=== PATIENT | female | born 1945 | race Caucasian/White ===

== ENCOUNTER → 2016-05-02 | Outpatient (CLI) | payer OTHER ==
[~2016-05-02] MED LIST: CALCTAB5 PO; CHOL100010 PO
--- NOTE | 2016-05-02 10:27 | DIAGNOSTIC IMAGING REPORT ---
CHEST 2 VIEWS ROUTINE CLINICAL HISTORY: Cough COMPARISON STUDY: 04/05/2016 FINDINGS: The cardiac and mediastinal contours remain stable. There is no focal pulmonary consolidation. There is no failure. There are no pleural effusions.[ IMPRESSION: No active disease in the chest. Electronically signed by: Umesh Armendariz M.D. 05/02/2016 10:25 AM Dictated Date/Time: 05/02/2016 10:24 AM
== END | disposition home or self-care (01) ==
LOC: C.RAD1850 10:15
PROVIDERS: ATTEND Family Medicine
DX: R05 Cough (principal)

== ENCOUNTER → 2016-05-22 | Outpatient (CLI) | payer OTHER ==
--- NOTE | 2016-05-22 13:23 | MAMMOGRAPHY REPORT ---
BILATERAL DIGITAL SCREENING MAMMOGRAM WITH CAD: 05/22/2016 CLINICAL HISTORY: Routine screening. Patient has no complaints. TECHNIQUE: Current study was also evaluated with a Computer Aided Detection (CAD) system. Bilatera l CC and MLO views were obtained. COMPARISON: Comparison is made to exams dated: 05/19/2015 mammogram, 05/17/2014 mammogram, 05/14/2013 ma mmogram, 05/07/2012 mammogram, 05/03/2011 mammogram, and 04/26/2009 mammogram - [facility] enter. BREAST COMPOSITION: The tissue of both breasts is heterogeneously dense, which may obscure small ma sses. FINDINGS: No suspicious masses, calcifications, or areas of architectural distortion are noted in e ither breast. There has been no significant interval change compared to prior exams. IMPRESSION: ACR BI-RADS CATEGORY 1: NEGATIVE There is no mammographic evidence of malignancy. A 1 year screening mammogram is recommended. The p atient will receive written notification of the results. Approximately 10% of breast cancers are not detected with mammography. A negative mammographic repor t should not delay biopsy if a clinically suggestive mass is present. Briseyda Infante M.D. /:05/22/2016 07:54:57 Physician/Ophthalmologist: Sho Farley, [facility] letter sent: Normal 1/2 BI-RADS Code: ACR BI-RADS Category 1: Negative
== END | disposition home or self-care (01) ==
LOC: C.MAMM 07:31
PROVIDERS: ATTEND Obstetrics & Gynecology
DX: Z12.31 Encounter for screening mammogram for malignant neoplasm of breast (principal)

== ENCOUNTER → 2017-02-19 | Day surgery (SDC) | payer OTHER ==
[2017-02-07 11:22] VITALS: Ht 162.6 cm; Wt 61.4 kg
[~2017-02-19] VITALS: Ht 162.6 cm; Wt 61.4 kg
[~2017-02-19] MED LIST changes: +CALC-393 PO; -CALCTAB5 PO; +LIDOCAINE HCL 2% 2 ML VIAL (20MG/ML) ONE; +PROPOFOL IV EMULSION 10 MG/ML 20 ML VIAL IV ONE; +SODIUM CHLORIDE 0.9% 500ML 500 ML IV ONE
--- NOTE | 2017-02-19 11:14 | Endo History and Physical ---
History & Physical Date of Service: Feb 19, 2017. Chief Complaint: HX OF ANAL RECTAL MALIGNANCY Referring Physician: DR. POZO History of Present Illness 72 yo CF who presents for colonoscopy secondary to history of Ano-rectal cancer. Past Medical History Osteoporosis, Fractures, Cancer Past Surgical History Hx Cardiac Surgery: No Hx Internal Defibrillator: No Hx Pacemaker: No Hx Abdominal Surgery: No Hx Post-Op Nausea and Vomiting: Yes Hx Cancer Surgery: Yes (SEE ABOVE (PAST MEDICAL HX COMMENTS BOX)) Hx Thoracic Surgery: No Hx Orthopedic: Yes (LEFT FOOT SURGERY) Hx Urinary Tract Surgery: No Family History None Social History Smoking Status: Never Smoker Hx Substance Use: No Hx Alcohol Use: Yes (OCCASIONALLY) Allergies Coded Allergies: Amoxicillin (Verified Adverse Reaction, Mild, Loose stools, 02/19/17) Clavulanic Acid (Verified Adverse Reaction, Mild, Loose stools, 02/19/17) Current Medications Reported Home Medications Medications Dose Route/Sig Max Daily Dose Days Date Category Calcium (Calcium Carbonate) 600 Mg Tab 1 Tab PO BID 02/07/17 Reported Vitamin D (Cholecalciferol) 1,000 Unit Tab 1 Tab PO QAM 02/07/17 Reported Vital Signs Weight (Kilograms): 61.36 Height (Feet): 5 Height (Inches): 4 Date Time Temp Pulse Resp B/P (MAP) Pulse Ox O2 Delivery O2 Flow Rate FiO2 02/19/17 10:41 36.8 125 18 154/79 (104) 100 Room Air Physical Exam General Appearance: WD/WN, no apparent distress Respiratory/Chest: Auscultation: breath sounds normal Cardiovascular: Heart Auscultation: RRR Abdomen: Bowel Sounds: normal Inspection & Palpation: soft, non-distended, no tenderness, guarding & rebound Assessment and Plan Assessment: 72 yo CF who presents for colonoscopy secondary to history of Ano-rectal cancer. Plan: Proceed with colonoscopy.
--- NOTE | 2017-02-19 11:56 | GI REPORT ---
Procedure Date: 02/19/2017 11:00 AM Procedure: Colonoscopy Indications: Personal history of malignant rectal neoplasm Medicines: Monitored Anesthesia Care Complications: No immediate complications. Estimated Blood Loss: Estimated blood loss: none. Procedure: Pre-Anesthesia Assessment: - Prior to the procedure, a History and Physical was performed, and patient medications and allergies were reviewed. The patient's tolerance of previous anesthesia was also reviewed. The risks and benefits of the procedure and the sedation options and risks were discussed with the patient. All questions were answered, and informed consent was obtained. Prior Anticoagulants: The patient has taken no previous anticoagulant or antiplatelet agents. ASA Grade Assessment: II - A patient with mild systemic disease. After reviewing the risks and benefits, the patient was deemed in satisfactory condition to undergo the procedure. After I obtained informed consent, the scope was passed under direct vision. Throughout the procedure, the patient's blood pressure, pulse, and oxygen saturations were monitored continuously. The scope was introduced through the descending colostomy and advanced to the cecum, identified by appendiceal orifice and ileocecal valve. The colonoscopy was performed without difficulty. The patient tolerated the procedure well. The quality of the bowel preparation was good. The appendiceal orifice was photographed. Findings: A 6 mm polyp was found in the transverse colon. The polyp was sessile. The polyp was removed with a hot snare. Resection and retrieval were complete. Impression: - One 6 mm polyp in the transverse colon, removed with a hot snare. Resected and retrieved. Recommendation: - Resume previous diet. - Continue present medications. - Repeat colonoscopy for surveillance based on pathology results. - Return to primary care physician as previously scheduled. Guillermo Aden, DO 02/19/2017 11:55:57 AM This report has been signed electronically. Note Initiated On: 02/19/2017 11:00 AM I attest to the content of the Intraoperative Record and orders documented therein, exceptions below
--- NOTE | 2017-02-19 12:02 | Discharge Instructions ---
Endoscopy Patient Instructions Date / Procedure(s) Performed Feb 19, 2017. Colonoscopy Allergy Information Coded Allergies: Amoxicillin (Verified Adverse Reaction, Mild, Loose stools, 02/19/17) Clavulanic Acid (Verified Adverse Reaction, Mild, Loose stools, 02/19/17) Discharge Date / Findings Feb 19, 2017. Colon polyp Medication Instructions OK to resume all medications today as prescribed Reported Home Medications Medications Dose Route/Sig Max Daily Dose Days Date Category Calcium (Calcium Carbonate) 600 Mg Tab 1 Tab PO BID 02/07/17 Reported Vitamin D (Cholecalciferol) 1,000 Unit Tab 1 Tab PO QAM 02/07/17 Reported Provider Instructions Activity Restrictions - No exercising or heavy lifting for 24 hours. - Do not drink alcohol the day of the procedure. - Do not drive a car or operate machinery until the day after the procedure. - Do not make any important decisions or sign important papers in 24 hours after the procedure. Following Day: - Return to full activity which may include returning to work/school. Diet Start your diet with liquids and light foods (jello, soup, juice, toast). Then eat your usual diet if not nauseated. Treatment For Common After Affects For mild abdominal pain, bloating, or excessive gas: - Rest - Eat lightly - Lie on right side Follow-Up Information Follow-up with DR. POZO as scheduled Anesthesia Information What You Should Know You have had a procedure that required some medicine to reduce anxiety and discomfort. This treatment is called moderate sedation. After receiving the treatment, you may be sleepy, but you will be able to breathe on your own. The effects of the treatment may last for several hours. Follow these instructions along with Activity/Diet recommendations noted above: * Do NOT do anything where dizziness or clumsiness would be dangerous. * Rest quietly at home today, then you can be up and about tomorrow. * Have a responsible person stay with you the rest of today. * You may have had an I.V. today. If so, you may take the dressing off later today. Recommendations Call your doctor if: * Trouble breathing * Continuous vomiting for more than 24 hours * Temperature above 101 degrees * Severe abdominal pain or bloating * Pain not relieved by pain medicine ordered * There is increased drainage or redness from any incision * A large amount of rectal bleeding greater than 2-3 tablespoons. (If you had a polyp/s removed or have hemorrhoids, a small amount of blood - from the rectum is to be expected.) * You have any unanswered questions or concerns. IN THE EVENT OF A SERIOUS EMERGENCY, GO TO THE NEAREST EMERGENCY ROOM Your discharge instructions were prepared by provider Guillermo Aden. Patient Instructions Signature Page Charmaine Person Patient (or Guardian) Signature/Date: I have read and understand the instructions given to me by my caregivers. Caregiver/RN/Doctor Signature/Date: The above-named patient and/or guardian has received patient instructions on this date. + Original Patient Signature Page (only) stays with chart. Please make copy for patient.
--- NOTE | 2017-02-19 12:15 | Anesthesiology Progress Note ---
Anesthesia Post Op Note Date & Time Feb 19, 2017 at 12:15 Vital Signs Pain Intensity: 0 Vital Signs Past 12 Hours Date Time Temp Pulse Resp B/P (MAP) Pulse Ox O2 Delivery O2 Flow Rate FiO2 02/19/17 12:07 88 16 123/67 (85) 98 Room Air 02/19/17 11:52 93 16 128/61 (83) 97 Room Air 02/19/17 10:41 36.8 125 18 154/79 (104) 100 Room Air Notes Mental Status: alert / awake / arousable, participated in evaluation Pt Amnestic to Procedure: Yes Nausea / Vomiting: adequately controlled Pain: adequately controlled Airway Patency, RR, SpO2: stable & adequate BP & HR: stable & adequate Hydration State: stable & adequate Anesthetic Complications: no major complications apparent
[2017-02-19 12:22] VITALS: BP 129/70; PULSE 86; O2SAT 98
== END | disposition home or self-care (01) ==
LOC: C.GI 09:58
PROVIDERS: ATTEND Internal Medicine
DX: K63.5 Polyp of colon (principal); Z85.048 Personal history of other malignant neoplasm of rectum, rectosigmoid junction, and anus; M81.0 Age-related osteoporosis without current pathological fracture

== ENCOUNTER → 2017-05-28 | Outpatient (CLI) | payer OTHER ==
[~2017-05-28] MED LIST changes: -LIDOCAINE HCL 2% 2 ML VIAL (20MG/ML) ONE; -PROPOFOL IV EMULSION 10 MG/ML 20 ML VIAL IV ONE; -SODIUM CHLORIDE 0.9% 500ML 500 ML IV ONE
--- NOTE | 2017-05-28 15:23 | MAMMOGRAPHY REPORT ---
BILATERAL DIGITAL SCREENING MAMMOGRAM TOMOSYNTHESIS WITH CAD: 05/28/2017 CLINICAL HISTORY: Routine screening. Patient has no complaints. TECHNIQUE: Breast tomosynthesis in addition to standard 2D mammography was performed. Current study was also evaluated with a Computer Aided Detection (CAD) system. COMPARISON: Comparison is made to exams dated: 05/22/2016 mammogram, 05/19/2015 mammogram, 05/17/2014 ma mmogram, 05/14/2013 mammogram, 05/07/2012 mammogram, and 05/03/2011 mammogram - [facility] ter. BREAST COMPOSITION: The tissue of both breasts is heterogeneously dense, which may obscure small mas ses. FINDINGS: There are mild vascular calcifications in the breasts. No suspicious mass, architectural d istortion or cluster of microcalcifications is seen. IMPRESSION: ACR BI-RADS CATEGORY 1: NEGATIVE There is no mammographic evidence of malignancy. A 1 year screening mammogram is recommended. The pa tient will receive written notification of the results. Approximately 10% of breast cancers are not detected with mammography. A negative mammographic report should not delay biopsy if a clinically suggestive mass is present. Mirtha Benito M.D. ay/:05/28/2017 08:16:44 Kaiako Kura [place]: Bruna WALKER(R)(M), [facility] letter sent: Normal 1/2 BI-RADS Code: ACR BI-RADS Category 1: Negative
== END | disposition home or self-care (01) ==
LOC: C.MAMM 07:27
PROVIDERS: ATTEND Obstetrics & Gynecology
DX: Z12.31 Encounter for screening mammogram for malignant neoplasm of breast (principal)

== ENCOUNTER 2021-06-20 09:10 | Observation (INO) ==
[2021-06-20] MEDS ORDERED: SODIUM CHLORIDE 0.9% 1000ML 1,000 ML IV STA (09:29)
[2021-06-20] MEDS ORDERED: SODIUM CHLORIDE 0.9% 1000ML 500 ML IV ONE (09:31)
[2021-06-20] MEDS ORDERED: AMPICILLIN 2,000 MG in SODIUM CHLOR 0.9% AD-VAN 100 ML IV STA (09:43)
--- NOTE | 2021-06-20 10:04 | Emergency Department Note ---
ED Provider Note CHIEF COMPLAINT: HEMATURIA, RECURRENT UTI HISTORY OF PRESENT ILLNESS: This [] patient presents to the emergency department [] REVIEW OF SYSTEMS: A review of systems was performed with positives and pertinent negatives listed in the history of present illness. 10 systems were reviewed and are otherwise negative. ALLERGIES: see below MEDICATIONS: see below PMH: see below SOCIAL HISTORY: see below DDx: [] PHYSICAL EXAM: Vital signs reviewed. General: Well-appearing, in no significant distress. HEENT: No scleral icterus, PERRLA, neck supple. Atraumatic. Cardiovascular: Regular rate and rhythm, no extra sounds. Pulmonary: Clear to auscultation bilaterally, normal work of breathing. Abdomen: Soft, nontender, nondistended, positive bowel sounds. Musculoskeletal: Atraumatic, no peripheral edema. Neurologic: Patient awake alert and oriented x 3, speech is clear Skin: Warm, dry, no rash EMERGENCY DEPARTMENT COURSE/MDM: [] MONITORING: An order for cardiac monitoring was placed and the patient is noted to be in a [] at [] beats per minute. 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 ARMENTA Under observation x 6 years Lichen simplex chronicus Possible lichen sclerosis - follows with derm Stable Monoclonal gammopathy Under observation Osteoporosis Parastomal hernia Stable Personal hx-rectal/anal malignancy Diagnosed 1991--sx only UTI (urinary tract infection) TAKING ANTIBIOTICS CURRENTLY-URINE RECHECK 06/05/21 THRU PCP Mild urine frequency/urine cloudy- otherwise no other symptoms Will follow up with PCP today Surgical History H/O total cystectomy Bartholin Gland or cyst History of section x3 History of colectomy 9 inches removed [address] [facility] d/t rectal cancer-COLOSTOMY History of colonoscopy with polypectomy History of elbow surgery left History of wisdom tooth extraction Nausea and vomiting after administration of anesthetic agent S/P colostomy S/P hysterectomy S/P tonsillectomy Status post laser cataract surgery of both eyes Family History Mother Alzheimer disease Grandmother (Maternal) Diabetes Father Hypertension Stroke Other No family history of adverse response to anesthesia Denies family history of Ovarian cancer Prostate cancer Myocardial infarction Breast cancer Social History Smoking Status: Never smoker Second Hand Exposure: No; Hx Alcohol Use: Yes Alcohol type: wine Hx Substance Use: No Preferred Language: Moldovan Communication Ability: Effective Visual Impairment: No Limitations Hearing Ability: Normal 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 Beliefs That Will Affect Care: None marital status: Current Living Situation: Spouse current occupational status: retired How many Children do You have: 3 How many Children do You have Comment: 3 girls Feels Safe at Home: Yes Childhood Exposure to Second-Hand Smoke: No during the past year weight has: remained stable Dental Care, Regularly: Yes Physical Activity Frequency: 5-6 Times per Week Seatbelt Use: always Sunscreen Use: Yes Assistive Devices: Cane and Glasses Allergies Allergies Allergy/AdvReac Type Severity Reaction Status Date / Time amoxicillin AdvReac Mild Loose Verified 05/31/21 12:15 stools clavulanic acid AdvReac Mild Loose Verified 05/31/21 12:15 stools Home Meds Home Medications Medication Instructions Recorded Confirmed calcium carbonate 600 mg calcium 300 mg PO BID 06/29/19 06/06/21 (1,500 mg) tablet cholecalciferol (vitamin D3) 50 1,000 unit PO QAM 06/29/19 06/06/21 mcg (2,000 unit) tablet vitamin B complex (B 1 tab PO DAILY PRN 06/29/19 06/06/21 Complex-Vitamin B12) fluticasone furoate 27.5 1 spray INTRANASAL DAILY PRN 05/31/21 06/06/21 mcg/actuation nasal spray,suspension (Flonase Sensimist) silver sulfadiazine 1 % topical 1 applic TOPICAL BID PRN 05/31/21 06/06/21 cream Previous Rx's Medication Instructions Recorded meclizine 25 mg tablet See Rx Instructions PO .TAKE 1/2 01/12/20 TO 1 TABLET EVERY 6 HOURS NEEDED FOR DIZZINESS. PRN #20 tab clobetasol 0.05 % topical ointment 1 applic TOP BID PRN #30 g 08/26/20 nitrofurantoin 100 mg PO BID 7 Days #14 cap 06/09/21 monohydrate/macrocrystals 100 mg capsule (Macrobid) Results & Data (ED) Vital Signs Vital Signs - 24 hr 06/20/21 09:17 Temperature 37.0 C Temperature Source Temporal Artery Scan Pulse Rate 112 H Respiratory Rate 20 Respiratory Effort / Characteristics Non-Labored Respiratory Depth Normal Blood Pressure 168/68 H Blood Pressure Mean 101 Pulse Oximetry 98 Oxygen Delivery Method Room Air Sepsis Recent Fever Within 48 Hours No Sepsis New/Unexplained Change in Mental Status N/A Sepsis Action Taken by Nursing No Action Required Discharge Plan Visit Data Chief Complaint: Hematuria Stated Complaint: INFECTION, BLOOD IN URINE ED Provider: Kaia Reinoso Forms Stand Alone Forms: [employer] [facility] Prescriptions Prescriptions: No Action meclizine 25 mg tablet See Rx Instructions PO .TAKE 1/2 TO 1 TABLET EVERY 6 HOURS NEEDED FOR DIZZINESS. PRN (Reason: dizziness) Qty: 20 RF: 0 nitrofurantoin monohyd/m-cryst [Macrobid] 100 mg capsule 100 mg PO BID 7 Days Qty: 14 RF: 0 vitamin B complex [B Complex-Vitamin B12] Tablet 1 tab PO DAILY PRN (Reason: "when she feels like it") RF: 0 calcium carbonate 600 mg calcium (1,500 mg) tablet 300 mg PO BID RF: 0 cholecalciferol (vitamin D3) 50 mcg (2,000 unit) tablet 1,000 unit PO QAM RF: 0 clobetasol 0.05 % ointment 1 applic TOP BID PRN (Reason: Rash) Qty: 30 RF: 0 Flonase Sensimist 27.5 mcg/actuation spray,suspension 1 spray intranasal DAILY PRN (Reason: Congestion) RF: 0 silver sulfadiazine 1 % cream 1 applic topical BID PRN (Reason: Other) RF: 0 Referrals Referrals: Pro,Sharan Hobson MD [Primary Care Provider] -
[2021-06-20 10:18] LABS: Basophils # (auto) 0.02 K/uL (0-0.2); Basophils % (auto) 0.3 %; Eosinophils # (auto) 0.02 K/uL (0-0.5); Eosinophils % (auto) 0.3 %; Hematocrit (blood only) 41.2 % (37-47); Hemoglobin 13.9 g/dL (12.0-16.0); Immature Granulocytes # (auto) 0.02 K/uL (0.00-0.02); Immature Granulocytes % (auto) 0.3 %; Lymphocytes # (auto) 0.67 K/uL (1.2-3.4); Lymphocytes % (auto) 9.7 %; Mean Corpuscular Hemoglobin 32.3 pg (25-34); Mean Corpuscular Hgb Conc 33.7 g/dL (32-36); Mean Corpuscular Volume 95.8 fL (80-100); Mean Platelet Volume 9.5 fL (7.4-10.4); Monocytes # (auto) 0.83 K/uL (0.11-0.59); Neutrophils # (auto) 5.34 K/uL (1.4-6.5); Neutrophils % (auto) 77.4 %; Platelet Count 218 K/uL (130-400); RDW Coefficient of Variation 12.4 % (11.5-14.5); RDW Standard Deviation 43.2 fL (36.4-46.3)
[2021-06-20 10:30] LABS: Appearance Urine Cloudy (Clear); Bacteria Urine Automated Negative (Negative); Bilirubin Urine Negative (Negative); Blood Urine 3+ (Negative); Color Urine Yellow; Glucose Urine UA Negative (Negative); Ketones Urine Negative (Negative); Leukocyte Esterase Urine 3+ (Negative); Nitrite Urine Negative (Negative); Protein Urine Trace (Negative); Specific Gravity Urine 1.008 (1.000-1.030); Urobilinogen Urine Negative (Negative); WBC Urine Automated >30 /hpf (0-5)
[2021-06-20 10:54] LABS: Albumin Globulin Ratio 1.2 (0.9-2); Albumin Level 4.4 gm/dl (3.4-5.0); BUN Creatinine Ratio 21.4 (10-20); Bilirubin,Total 0.6 mg/dl (0.2-1.0); Calcium 9.4 mg/dl (8.5-10.1); Creatinine Clr Calc Pharmacy 47.7 ml/min; Est GFR (African American) 77.2 ml/min; Est GFR (Non-African American) 66.6 ml/min; Globulin 3.6 gm/dl (2.5-4.0); Potassium 3.5 mmol/L (3.5-5.1)
[2021-06-20] MEDS ORDERED: OPTIRAY 320 100ml IV ONE (11:33)
--- NOTE | 2021-06-20 12:18 | CT Scan Report ---
CT SCAN OF THE ABDOMEN AND PELVIS WITH IV CONTRAST CLINICAL HISTORY: Recurrent urinary tract infection. COMPARISON STUDY: No priors. TECHNIQUE: Following the IV administration of 94 cc of Optiray 320, CT scan of the abdomen and pelvi s is performed from the lung bases to the proximal femora. Images are reviewed in the axial, sagittal , and coronal planes. IV contrast was administered without complication. A dose lowering technique wa s utilized adhering to the principles of ALARA. CT DOSE: 286.88 mGy.cm FINDINGS: Lung bases: The heart is normal in size and without pericardial effusion. There is bibasilar scarring /atelectasis. No airspace consolidation or pleural effusion is identified. Liver: The contrast-enhanced liver is normal in size, contour, and attenuation. There is no intrahepa tic biliary ductal dilatation. The hepatic veins and portal veins are patent. Gallbladder: Unremarkable. Spleen: Normal in size and attenuation. Pancreas: Unremarkable. Adrenal glands: Unremarkable. Kidneys: The contrast enhanced kidneys are normal in size. The kidneys enhance symmetrically. There i s a large right-sided extrarenal pelvis with mild right-sided hydronephrosis. The right ureter is nor mal in caliber, and this likely represents a UPJ type obstruction. There are tiny layering stones nusrat mayte excreted contrast within the extrarenal pelvis. No hydronephrosis is seen on the left. Urothelial thickening and enhancement is identified involving the renal pelvis bilaterally, right greater than left. Small nonobstructing left renal calculi measure up to 3 mm. Scattered subcentimeter cortical hy podensities likely represent cysts but are too small for definitive characterization. Abdominal vasculature: The abdominal aorta is normal in course and caliber. Bowel: There is postoperative change from rectosigmoid resection. An ostomy is seen in the left lower quadrant. There is moderate colonic fecal retention. No bowel obstruction is seen. The appendix is well-visualized and normal. Peritoneum: There is no intraperitoneal free air or abdominal ascites. Lymphadenopathy: None. Pelvic viscera: Bladder calculi are suspected on image #338. The bladder is partially decompressed an d otherwise grossly normal as imaged. The uterus is surgically absent. No adnexal lesion is seen. Skeletal structures: The skeletal structures are osteopenic. There is moderate lumbosacral spondylosi s. There is a mild chronic superior endplate compression deformity of L2. There is likely chronic avu lsion fracture the anterior/inferior endplate of L1. No lytic or blastic lesions are seen. IMPRESSION: 1. There is a large extrarenal pelvis on the right with mild right-sided hydronephrosis. The right ur eter is normal in caliber, with no obstructing stone or lesion clearly identified. This likely repres ents a UPJ type obstruction. There is a small amount of excreted contrast versus tiny layering stones within the extrarenal pelvis. Follow-up with urology is recommended. 2. Urothelial thickening and enhancement is seen in the renal pelvis bilaterally, right greater than left as well as involving the ureters. This could be seen with urinary tract infection. Correlate wit h clinical findings and urinalysis. 3. Left-sided nephrolithiasis. 4. There is postoperative change from rectal resection and left lower quadrant colostomy. No bowel ob struction is identified. 5. Moderate constipation. 6. Additional findings as above. ACT 112: Negative or not required by law. Electronically signed by: Giovanni Ponce M.D. 06/20/2021 12:16 PM
--- NOTE | 2021-06-20 14:35 | History & Physical Report ---
Date of Service June 20, 2021 Assessment & Plan (1) UTI (urinary tract infection): Plan: - New onset painless hematuria last evening (06/19) x2, not on blood thinners, increased frequency and cloudy urine ongoing since April, several cultures since then have grown Enterococcus faecalis, she has been on several rounds of macrobid and ciprofloxacin x1 without alleviation of symptoms. Of note, patient does have IgM monoclonal gammopathy of unclear significance, IgG 288, IgA 10.6 in April 2021. - CTAP showed right-sided extrarenal pelvis with mild hydronephrosis. Possible kidney stones and extrarenal pelvis, which may have passed and be cause/contributing to hematuria. - Received 2 g ampicillin in ED. Will continue with ampicillin 1 g every 8 starting this evening and also give IVIG 1 g/kg (dose of 60 gm) given her low IgG and IgA. - Blood and urine cultures pending. - Urology consulted, appreciate their recommendations. Will keep pt NPO after midnight (2) Hematuria: Plan: - As above. (3) Monoclonal gammopathy: Plan: - Being followed by heme/onc, observation only at this time. - IgG 288, IgA 10.6 in April 2021. (4) History of rectal cancer: Plan: - in 1991, s/p colostomy. (5) Osteoporosis: Plan: - Continue vitamin D and calcium supplementation. Plan: -Admit to [facility]. -SCDs for DVT prophylaxis. -Full code. History of Present Illness Chief Complaint: Hematuria Primary Care Provider: Sharan Pittman MD Patient is a 76-year-old female with past medical history of rectal cancer in 1991 w/ colostomy, monoclonal gammopathy, and osteoporosis who presents today with blood in her urine for the past day. She initially presented to her PCP in April with very cloudy urine and increased frequency. She has several urine cultures since then have grown Enterococcus faecalis and has been on Macrobid several times and ciprofloxacin once without alleviation of her symptoms. Last evening, she reports seeing a large amount of blood in the toilet bowl after urination. She reports 1 more incident since then. She is not on any blood thinners and otherwise is without symptoms, denies dysuria, increased frequency, increased urgency, dysuria, flank pain, fever/chills, abdominal pain, nausea, vomiting. She called her PCP this morning concerning the hematuria, who instructed her to present to the ED for further evaluation. Does not have a pe rsonal or family history or renal or bladder cancer. In ED, she is hemodynamically stable, vital signs within normal limits. CBC and CMP unremarkable. UA remarkable for 3+ blood, 3+ leukocytes, greater than 30 WBC, 5-10 RBC, no bacteria. CTAP a right sided extrarenal pelvis with mild hydronephrosis. 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; only mildly/occ symptomatic Colostomy in place No current issues IgA deficiency, selective F/U DR GARCIA Under observation x 6 years Lichen simplex chronicus Possible lichen sclerosis - follows with derm Stable Monoclonal gammopathy Under observation Osteoporosis Parastomal hernia Stable Personal hx-rectal/anal malignancy Diagnosed 1991--sx only UTI (urinary tract infection) TAKING ANTIBIOTICS CURRENTLY-URINE RECHECK 06/05/21 THRU PCP Mild urine frequency/urine cloudy- otherwise no other symptoms Will follow up with PCP today Surgical History H/O total cystectomy Bartholin Gland or cyst History of section x3 History of colectomy 9 inches removed [address] [facility] d/t rectal cancer-COLOSTOMY History of colonoscopy with polypectomy History of elbow surgery left History of wisdom tooth extraction Nausea and vomiting after administration of anesthetic agent S/P colostomy S/P hysterectomy S/P tonsillectomy Status post laser cataract surgery of both eyes Family History Mother Alzheimer disease Grandmother (Maternal) Diabetes Father Hypertension Stroke Other No family history of adverse response to anesthesia Denies family history of Ovarian cancer Prostate cancer Myocardial infarction Breast cancer Social History Smoking Status: Never smoker Second Hand Exposure: No; Hx Alcohol Use: Yes Alcohol type: wine Hx Substance Use: No Preferred Language: Algerian Communication Ability: Effective Visual Impairment: No Limitations Hearing Ability: Normal Emergency Veterinary Technician Required: No Beliefs That Will Affect Care: None marital status: Current Living Situation: Spouse current occupational status: retired How many Children do You have: 3 How many Children do You have Comment: 3 girls Other Information That Helps Us Care for You: No Feels Safe at Home: Yes Safety Concerns: Feels Safe At This Time Childhood Exposure to Second-Hand Smoke: No during the past year weight has: remained stable Dental Care, Regularly: Yes Physical Activity Frequency: 5-6 Times per Week Seatbelt Use: always Sunscreen Use: Yes Assistive Devices: Cane and Glasses Review of Systems Review of Systems: Constitutional: No fever, sweats or chills Eyes: No diplopia, no worsening or blurred vision ENT: normal hearing, no trouble swallowing Respiratory: No cough, sputum, dyspnea at rest or on exertion Cardiovascular: No chest pain, tightness or palpitations Abdomen: No pain, nausea, vomiting, diarrhea or constipation Musculoskeletal: No joint pain, calf pain, swelling : reports hematuria x2 or the past day and cloudy urine; denies dysuria, increased frequency/urgency, and flank pain Neurologic: No weakness, numbness/tingling, or balance problems Psychiatric: No anxiety or depression Skin: No rash or itch Physical Exam Physical Exam: General: awake, alert, no apparent distress Head: Normocephalic, atraumatic ENT: PERRL, EOMI, no pharyngeal exudate, mucous membranes moist Chest: Clear to auscultation, on room air, no adventitious breath sounds Cardiac: Regular rate and rhythm, no murmur, no JVD, normal peripheral pulses, good capillary refill Abdominal: NABS x 4 quadrants, soft, nontender to palpation, no rebound, guarding or tenderness Extremities: Normal inspection, no peripheral edema or erythema, calfs nontender to palpation Psych: Normal mood and affect Neuro: AAO x 3, strength intact bilaterally and rated 5/5, no motor deficits, speech is clear, no peripheral sensory deficits Skin: no rash or erythema Results & Data Results & Data ([facility]) Vital Signs (Past 12 Hours) Vital Signs Temp Pulse Pulse Resp BP BP Pulse Ox 06/20/21 13:00 96 H 20 146/85 H 100 06/20/21 09:17 37.0 C 112 H 20 168/68 H 98 Laboratory Results Abnormal lab results 06/20/21 06/20/21 06/20/21 Range/Units 10:00 10:06 10:21 Lymph # (Auto) 0.67 L (1.2-3.4) K/uL Grimes # (Auto) 0.83 H (0.11-0.59) K/uL BUN/Creatinine Ratio 21.4 H (10-20) Alkaline Phosphatase 129 H (34-104) U/L Urine Appearance Cloudy A (Clear) Urine Protein Trace H (Negative) Urine Blood 3+ H (Negative) Ur Leukocyte Esterase 3+ H (Negative) Urine WBC (Auto) >30 H (0-5) /hpf Urine RBC (Auto) 5-10 H (0-4) /hpf U Epithel Cells (Auto) 5-10 H (0-5) /lpf Diagnostic Findings Abdomen/Pelvis CT 06/20/21 09:29 CT SCAN OF THE ABDOMEN AND PELVIS WITH IV CONTRAST CLINICAL HISTORY: Recurrent urinary tract infection. COMPARISON STUDY: No priors. TECHNIQUE: Following the IV administration of 94 cc of Optiray 320, CT scan of the abdomen and pelvis is performed from the lung bases to the proximal femora. Images are reviewed in the axial, sagittal, and coronal planes. IV contrast was administered without complication. A dose lowering technique was utilized adhering to the principles of ALARA. CT DOSE: 286.88 mGy.cm FINDINGS: Lung bases: The heart is normal in size and without pericardial effusion. There is bibasilar scarring/atelectasis. No airspace consolidation or pleural effusion is identified. Liver: The contrast-enhanced liver is normal in size, contour, and attenuation. There is no intrahepatic biliary ductal dilatation. The hepatic veins and portal veins are patent. Gallbladder: Unremarkable. Spleen: Normal in size and attenuation. Pancreas: Unremarkable. Adrenal glands: Unremarkable. Kidneys: The contrast enhanced kidneys are normal in size. The kidneys enhance symmetrically. There is a large right-sided extrarenal pelvis with mild right- sided hydronephrosis. The right ureter is normal in caliber, and this likely represents a UPJ type obstruction. There are tiny layering stones versus excreted contrast within the extrarenal pelvis. No hydronephrosis is seen on the left. Urothelial thickening and enhancement is identified involving the renal pelvis bilaterally, right greater than left. Small nonobstructing left renal calculi measure up to 3 mm. Scattered subcentimeter cortical hypodensities likely represent cysts but are too small for definitive characterization. Abdominal vasculature: The abdominal aorta is normal in course and caliber. Bowel: There is postoperative change from rectosigmoid resection. An ostomy is seen in the left lower quadrant. There is moderate colonic fecal retention. No bowel obstruction is seen. The appendix is well-visualized and normal. Peritoneum: There is no intraperitoneal free air or abdominal ascites. Lymphadenopathy: None. Pelvic viscera: Bladder calculi are suspected on image #338. The bladder is partially decompressed and otherwise grossly normal as imaged. The uterus is surgically absent. No adnexal lesion is seen. Skeletal structures: The skeletal structures are osteopenic. There is moderate lumbosacral spondylosis. There is a mild chronic superior endplate compression deformity of L2. There is likely chronic avulsion fracture the anterior/inferior endplate of L1. No lytic or blastic lesions are seen. IMPRESSION: 1. There is a large extrarenal pelvis on the right with mild right-sided hydronephrosis. The right ureter is normal in caliber, with no obstructing stone or lesion clearly identified. This likely represents a UPJ type obstruction. There is a small amount of excreted contrast versus tiny layering stones within the extrarenal pelvis. Follow-up with urology is recommended. 2. Urothelial thickening and enhancement is seen in the renal pelvis bilaterally, right greater than left as well as involving the ureters. This could be seen with urinary tract infection. Correlate with clinical findings and urinalysis. 3. Left-sided nephrolithiasis. 4. There is postoperative change from rectal resection and left lower quadrant colostomy. No bowel obstruction is identified. 5. Moderate constipation. 6. Additional findings as above. ECG Additional Comments: Sinus rhythm with marked sinus arrhythmia Incomplete right bundle branch block Borderline ECG When compared with ECG of 01-MAR-2022 10:22, Premature atrial complexes are no longer Present ST no longer depressed in Anterior leads. Code Status & VTE Plan Code Status Full Code. Supervising Physician Co-Signing Physician Notes Attending Attestation and Admission Note - Pt seen/examined, chart reviewed, care plan d/w ALISON Mittal. I agree w/ the wiggins components of her documentation. Pleasant 76yo female - h/o rectal ca in the 1970s s/p hemicolectomy with colo stomy formation - MGUS, IgA def/IgG deficiency, known extrarenal pelvis. Presenting with gross hematuria today. No fever/chills. Eating fine. Has had recurrent enterococcal UTI x 4 since 04/2021. Ua today still suspicious for infection. During my assessment she denies flank pain, abd pain, issues with her colostomy or output from such, dysuria, etc. Gross hematuria has improved through the day. She did mention she saw significant sediment in her urine when she passed the bloody urine. PMH/PSH/allergies/meds/sochx/famhx - reviewed VSS, afebrile gen - NAD, pleasant mouth - MMM heart - RRR, s1 s2 lungs - CTA b/l back - no flank tenderness to palpation b/l abd - soft NT ND BS+; ostomy in place ext - no edema labs reviewed ua reviewed CT a/p reviewed A/P: 1. gross hematuria - 2nd to UTI? 2nd to passed kidney stone? other? Monitor. H/H stable. Urology consulted - need for cysto? 2. recurrent enterococcal UTI - agree with IV amp, then ultimately PO amoxicillin. Recurrent UTI - may be combination of inadequate antibiotics (cipro, etc) +/- immune deficiency (known IgG and IgA def) +/- anatomic issues. 3. extrarenal pelvis on R with hydronephrosis - ?UPJ obstruction. Keep NPO after MN in the event urology advises cystoscopy. 4. 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 Hung Ledesma MD PG Care Time/CCT Total # of Minutes Spent Total Time Spent with Patient: Total time spent is greater than 50% in coordination of care (as documented) at patient's floor/unit and/or counseling patient: Coding Level of Care Code 50926 Initial Inpt Care Lvl 3 Diagnoses Hematuria R31.9 History of rectal cancer Z85.048 Monoclonal gammopathy D47.2 UTI (urinary tract infection) N39.0; R31.9 Hematuria presence: with hematuria Urinary tract infection type: site unspecified Osteoporosis M81.0 (1) UTI (urinary tract infection) Hematuria presence: with hematuria Urinary tract infection type: site unspecified Qualified Code(s): N39.0 - Urinary tract infection, site not specified; R31.9 - Hematuria, unspecified
[2021-06-20] MEDS ORDERED: diphenhydrAMINE Capsule 25 MG CAP PO ONE (15:50)
[2021-06-20] MEDS ORDERED: IMMUNE GLOBULIN (HUMAN) SOLN IV ONE (15:50)
[2021-06-20] MEDS ORDERED: ACETAMINOPHEN 500 MG TAB PO STA (15:50)
[2021-06-20] MEDS ORDERED: ONDANSETRON INJ 2 MG/ML 2 ML VIAL IV PRN (16:27)
[2021-06-20] MEDS ORDERED: ACETAMINOPHEN 325 MG TAB PO PRN (16:27)
[2021-06-20] MEDS ORDERED: POLYETHYLENE (MIRALAX) 17 GM PACK PO PRN (16:27)
[2021-06-20] MEDS: IMMUN GLOBG(IGG)/MALT/IGA OV50 100 ML IV SCH ×5 (17:19→23:51)
[2021-06-20] MEDS: VITAMIN B COMPLEX TAB PO SCH (17:19)
--- NOTE | 2021-06-20 20:49 | Urology Consultation ---
Date of Consultation June 20, 2021 Assessment & Plan (1) Hematuria: Patient has been admitted on the hospitalist service proceeding as follows: Antibiotics in form of ampicillin have been initiated as noted in the HPI. Recommend continuing this antibiotic until further culture data is available at which time antibiotics can be further tailored based on these results The cause of patient's hematuria may be secondary to underlying urinary tract infection or potentially a kidney stone Recommend straining all urine and saving any kidney stones for analysis that are retrieved Make the patient n.p.o. after midnight tonight in the event that any cystoscopic intervention is required tomorrow, however nothing emergent is needed at this time as the patient is afebrile, has no pain, her hematuria has cleared, and her renal function is normal. History of Present Illness Reason for Consultation: Hematuria Attending Physician: Hung Ledesma History of Present Illness Is a 68-year-old female who presented to the emergency department at the recommendation of her primary care physician secondary to hematuria. Says that she was in her usual state of health when she noted proximally 2 episodes of hematuria last evening. She noted that this hematuria was painless. She specifically denies any pain in her back or flanks. She denies any dysuria or urinary frequency. The patient notes that she has also not had any fevers, shakes, chills. She also denies any weight loss. Of note the patient was known to have an Enterococcus urinary tract infection that was treated by her primary care physician dating back to April of this year. The patient says that she is taken 2 courses of Macrobid along with 1 course of ciprofloxacin but continues to have a urinary tract infection. As noted above she contacted her primary care physician and it was recommended that the patient port to the emergency department for further evaluation. There is also no over the mention that the patient does not take any blood thinners. Upon arrival to the emergency department the patient had labs and imaging which independently reviewed. CT scan of the abdomen and pelvis identified a large extrarenal pelvis on the right-hand side with associated hydronephrosis. No obstructing stones or lesions noted in the right ureter. Was felt that the large extrarenal pelvis might represent a ureteropelvic junction obstruction. Labs include a CBC were white blood cell count, hemoglobin, hematocrit, and platelet count were all within normal range. Chemistry profile showed sodium, potassium, BUN, and creatinine were all within normal range. Urinalysis revealed 3+ blood as well as 3+ leukocyte Estrace and greater than 30 white blood cells per high-power field. There is no bacteria noted in her urine. A Covid test was performed and was noted to be negative. Since arrival to the hospital she has had blood and urine culture sent. Antibiotics in the form of ampicillin have been initiated. At the time of my interview the patient was resting comfortably in bed. Patient says she is she has been voiding without difficulty since arrival to the hospital and has noted that her urine has cleared without any further evidence of gross hematuria since arrival. 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; only mildly/occ symptomatic Colostomy in place No current issues IgA deficiency, selective F/U DR ARMENTA Under observation x 6 years Lichen simplex chronicus Possible lichen sclerosis - follows with derm Stable Monoclonal gammopathy Under observation Osteoporosis Parastomal hernia Stable Personal hx-rectal/anal malignancy Diagnosed 1991--sx only UTI (urinary tract infection) TAKING ANTIBIOTICS CURRENTLY-URINE RECHECK 06/05/21 THRU PCP Mild urine frequency/urine cloudy- otherwise no other symptoms Will follow up with PCP today Surgical History H/O total cystectomy Bartholin Gland or cyst History of section x3 History of colectomy 9 inches removed [address] [facility] d/t rectal cancer-COLOSTOMY History of colonoscopy with polypectomy History of elbow surgery left History of wisdom tooth extraction Nausea and vomiting after administration of anesthetic agent S/P colostomy S/P hysterectomy S/P tonsillectomy Status post laser cataract surgery of both eyes Family History Mother Alzheimer disease Grandmother (Maternal) Diabetes Father Hypertension Stroke Other No family history of adverse response to anesthesia Denies family history of Ovarian cancer Prostate cancer Myocardial infarction Breast cancer Social History Smoking Status: Never smoker Second Hand Exposure: No; Hx Alcohol Use: Yes Alcohol type: wine Hx Substance Use: No Preferred Language: Uzbek Communication Ability: Effective Visual Impairment: No Limitations Hearing Ability: Normal Sports Cartoonist Required: No Beliefs That Will Affect Care: None marital status: Current Living Situation: Spouse current occupational status: retired How many Children do You have: 3 How many Children do You have Comment: 3 girls Other Information That Helps Us Care for You: No Feels Safe at Home: Yes Safety Concerns: Feels Safe At This Time Childhood Exposure to Second-Hand Smoke: No during the past year weight has: remained stable Dental Care, Regularly: Yes Physical Activity Frequency: 5-6 Times per Week Seatbelt Use: always Sunscreen Use: Yes Assistive Devices: Cane and Glasses Review of Systems Constitutional: no fever and no chills Eyes: no diplopia Ear, Nose, Mouth, Throat: no ear pain Respiratory: no cough and no dyspnea Cardiovascular: no chest pain Gastrointestinal: no abdominal pain, no nausea and no vomiting Genitourinary: as per Subjective / HPI and + hematuria; no dysuria, no urinary frequency and no flank pain Musculoskeletal: no back pain Integumentary: no rash Neurologic: no localized weakness Physical Exam Constitutional: well developed and well nourished; no acute distress Eyes: no conjunctival abnormality ENMT: Ears: no hearing impairment Neck: trachea midline Respiratory: normal respiratory effort; no respiratory distress and no labored breathing Cardiovascular: Rate/Rhythm: regular rate and regular rhythm Gastrointestinal (Abdomen): Soft, nontender, nondistended Musculoskeletal: No calf tenderness Skin: no rashes Neurologic: moves all extremities Psychiatric: A+Ox3, euthymic affect Results & Data ([facility]) Vital Signs (Past 12 Hours) Vital Signs Temp Pulse Pulse Pulse Resp BP BP 06/20/21 19:59 37.2 C 70 18 147/72 H 06/20/21 17:46 37.4 C 89 16 175/79 H 06/20/21 16:15 36.8 C 91 H 16 158/73 H 06/20/21 14:38 99 H 18 146/93 H 06/20/21 13:00 96 H 20 146/85 H 06/20/21 09:17 37.0 C 112 H 20 168/68 H Pulse Ox 06/20/21 19:59 97 06/20/21 17:46 98 06/20/21 16:15 96 06/20/21 14:38 97 06/20/21 13:00 100 06/20/21 09:17 98 PG Care Time/CCT Total # of Minutes Spent Total Time Spent with Patient: Total time spent is greater than 50% in coordination of care (as documented) at patient's floor/unit and/or counseling patient: Coding Level of Care Code 37160 Inpt Consult Level 5 Diagnoses Hematuria R31.9
[2021-06-20] MEDS: CALCIUM CARBONATE 1250MG TAB PO SCH (21:08)
[2021-06-20] MEDS: AMPICILLIN 1,000 MG in SODIUM CHLOR 0.9% AD-VAN 50 ML IV SCH (21:31)
[2021-06-21] MEDS: IMMUN GLOBG(IGG)/MALT/IGA OV50 100 ML IV SCH (01:39)
[2021-06-21] MEDS: AMPICILLIN 1,000 MG in SODIUM CHLOR 0.9% AD-VAN 50 ML IV SCH ×2 (03:53→11:40)
--- NOTE | 2021-06-21 06:27 | Electrocardiogram Report ---
Test Reason : Blood Pressure : / mmHG Vent. Rate : 089 BPM Atrial Rate : 089 BPM P-R Int : 140 ms QRS Dur : 094 ms QT Int : 362 ms P-R-T Axes : 053 004 053 degrees QTc Int : 440 ms Sinus rhythm with frequent Premature atrial complexes Incomplete right bundle branch block Borderline ECG When compared with ECG of 06-JUN-2021 10:22, No significant change Confirmed by Rod Castillo ([id number]) on 06/21/2021 6:26:29 AM Referred By: REFERRED SELF Confirmed By:Rod Castillo
[2021-06-21 07:13] LABS: Basophils # (auto) 0.02 K/uL (0-0.2); Basophils % (auto) 0.6 %; Eosinophils # (auto) 0.06 K/uL (0-0.5); Eosinophils % (auto) 1.7 %; Hematocrit (blood only) 36.3 % (37-47); Hemoglobin 12.2 g/dL (12.0-16.0); Immature Granulocytes # (auto) 0.01 K/uL (0.00-0.02); Immature Granulocytes % (auto) 0.3 %; Lymphocytes % (auto) 19.5 %; Mean Corpuscular Hgb Conc 33.6 g/dL (32-36); Mean Corpuscular Volume 95.3 fL (80-100); Mean Platelet Volume 8.8 fL (7.4-10.4); Monocytes # (auto) 0.57 K/uL (0.11-0.59); Monocytes % (auto) 15.9 %; Neutrophils # (auto) 2.23 K/uL (1.4-6.5); Platelet Count 173 K/uL (130-400); RDW Coefficient of Variation 12.1 % (11.5-14.5); RDW Standard Deviation 42.3 fL (36.4-46.3); Red Blood Count 3.81 M/uL (4.2-5.4); White Blood Count 3.59 K/uL (4.8-10.8)
[2021-06-21] MEDS: CHOLECALCIFEROL 1,000 UNITS 25 MCG TAB PO SCH ×2 (07:37→10:08)
[2021-06-21] MEDS: VITAMIN B COMPLEX TAB PO SCH ×2 (07:37→10:08)
[2021-06-21] MEDS: CALCIUM CARBONATE 1250MG TAB PO SCH ×2 (07:37→10:08)
[2021-06-21 07:42] LABS: BUN Creatinine Ratio 16.3 (10-20); Calcium 8.9 mg/dl (8.5-10.1); Est GFR (African American) 81.8 ml/min; Est GFR (Non-African American) 70.6 ml/min; Potassium 3.3 mmol/L (3.5-5.1)
--- NOTE | 2021-06-21 09:26 | Urology Progress Note ---
Date of Service June 21, 2021 Assessment & Plan (1) Hematuria: (2) UTI (urinary tract infection): Plan: 76 yo F admitted with hematuria and suspected urinary tract infection. - Plan of care reviewed with Dr. Kang, urologist injection molding engineer. - Patient subjectively doing well. - Remains afebrile, nontoxic, lab work reviewed and stable - creatinine 0.80, WBC 3.59. - Urine culture preliminary probable Enterococcus, Blood cultures pending - on IV Ampicillin, follow cultures. - CTAP reviewed personally and with Dr. Kang - notes a large right extrarenal pelvis with mild right hydronephrosis, possible UPJ obstruction; favor excreted contrast within extrarenal pelvis. - No acute intervention today, okay to resume diet. - Continue supportive care, antibiotics, and management per hospital medicine. - Recommend treatment with appropriate PO antibiotics for complicated UTI upon discharge. - Will plan for outpatient follow-up with our service to complete hematuria/anatomic work-up, evaluate possible UPJ obstruction. - Patient agreeable with above plan, all questions answered. Thank you for allowing us to participate in the acute care of Ms. Person. Please reconsult us with additional questions, concerns or changes in patient status. Plan: I have discussed Ms. Person's case with NEYDA Layton and agree with the above documentation. For now, would recommend treatment of a complex UTI, but would hold off on any surgical intervention. We will arrange hematuria work-up as well as evaluation of her kidney and potentially for a pyeloplasty as an outpatient. Admission and Anticipated Discharge Date Admission Date: June 20, 2021 Subjective Patient seen and examined at bedside this AM. She is sleeping on arrival, arouses easily to her name. No acute issues overnight. Subjectively feeling well. No flank, abdominal, or suprapubic pain. Voiding without difficulty, no dysuria or hematuria. No nausea or vomiting. Denies constipation at present, colostomy in place. No fever or chills. She feels ready to go home. Of note, she says she had multiple sequential UTIs in 1973 and saw a urologist at that time. She reports that an IVP was performed and she was noted to have an extrarenal pelvis on the right. Since that time, she has done well overall with only an occasional UTI up until April of this year when she has had recurrent infections. No personal history of stone disease. Never smoker. Review of Systems Constitutional: as per Subjective / HPI Gastrointestinal: as per Subjective / HPI Genitourinary: as per Subjective / HPI Physical Exam Constitutional: well developed and well nourished; no acute distress and not ill appearing Respiratory: normal respiratory effort and able to speak in complete sentences; no respiratory distress and no labored breathing Cardiovascular: Extremities: no pedal edema Gastrointestinal (Abdomen): Inspection/Auscultation: abdomen normal to inspection; abdomen not distended Percussion/Palpation: abdomen soft; abdomen nontender and no guarding colostomy intact Musculoskeletal: Head/Neck/Chest: normocephalic and head atraumatic Skin: no visible rashes Neurologic: moves all extremities and awake Psychiatric: Orientation: alert and oriented x 3 Genitourinary: no CVA tenderness Results & Data ([facility]) Vital Signs (Past 12 Hours) Vital Signs Temp Pulse Resp BP Pulse Ox 06/21/21 06:58 36.6 C 78 16 161/74 H 99 06/21/21 02:01 37.1 C 63 17 151/73 H 96 06/21/21 00:05 36.8 C 65 17 159/67 H 97 06/20/21 22:55 37 C 68 16 151/75 H 96 06/20/21 21:25 37.0 C 76 18 162/74 H 95 PG Care Time/CCT Total # of Minutes Spent Total Time Spent with Patient: Total time spent is greater than 50% in coordination of care (as documented) at patient's floor/unit and/or counseling patient: Coding Level of Care Code 45064 Subseq Hosp Care Lvl 2 Diagnoses Hematuria R31.9 UTI (urinary tract infection) N39.0; R31.9 Hematuria presence: with hematuria Urinary tract infection type: site unspecified (1) UTI (urinary tract infection) Hematuria presence: with hematuria Urinary tract infection type: site unspecified Qualified Code(s): N39.0 - Urinary tract infection, site not specified; R31.9 - Hematuria, unspecified
[2021-06-21] MEDS ORDERED: POTASSIUM CHLORIDE CRTAB 20 MEQ TABCR PO STA (09:27)
--- NOTE | 2021-06-21 12:21 | Communication Note ---
Date of Service: June 21, 2021 By CMS guidelines, a determination that the admission or continued stay is not medically necessary has been made by a member of the UR committee and a phy sician for this hospital stay, therefore a Code 44 will be completed and the Inpatient admission will be changed to outpatient. Hung Ledesma MD
--- NOTE | 2021-06-21 12:27 | Discharge Summary ---
Date of Service date of admission - June 20, 2021 date of discharge - June 21, 2021 Admission HPI Per Admitting Provider Patient is a 76-year-old female with past medical history of rectal cancer in 1991 w/ colostomy, monoclonal gammopathy, and osteoporosis who presents today with blood in her urine for the past day. She initially presented to her PCP in April with very cloudy urine and increased frequency. She has several urine cultures since then have grown Enterococcus faecalis and has been on Macrobid several times and ciprofloxacin once without alleviation of her symptoms. Last evening, she reports seeing a large amount of blood in the toilet bowl after urination. She reports 1 more incident since then. She is not on any blood thinners and otherwise is without symptoms, denies dysuria, increased frequency, increased urgency, dysuria, flank pain, fever/chills, abdominal pain, nausea, vomiting. She called her PCP this morning concerning the hematuria, who instructed her to present to the ED for further evaluation. Does not have a personal or family history or renal or bladder cancer. In ED, she is hemodynamically stable, vital signs within normal limits. CBC and CMP unremarkable. UA remarkable for 3+ blood, 3+ leukocytes, greater than 30 WBC, 5-10 RBC, no bacteria. CTAP a right sided extrarenal pelvis with mild hydronephrosis. Principal Diagnosis 1. Recurrent Enterococcal UTI 2. Gross Hematuria 3. IgA + IgG deficiencies Discharge Exam gen - NAD, pleasant mouth - MMM neck - no JVD heart - RRR, s1 s2 lungs - CTA b/l abd - soft, ND, NT, BS+; colostomy bag in place ext - no edema, pulses 2+ b/l Discharge Data Allergies Allergy/AdvReac Type Severity Reaction Status Date / Time amoxicillin AdvReac Mild Loose Verified 06/20/21 10:19 stools clavulanic acid AdvReac Mild Loose Verified 06/20/21 10:19 stools Consultations [facility] Procedures Performed IVIG infusion 1gm/kg IV x 1 Ordered Studies Abdomen/Pelvis CT 06/20/21 09:29 CT SCAN OF THE ABDOMEN AND PELVIS WITH IV CONTRAST CLINICAL HISTORY: Recurrent urinary tract infection. COMPARISON STUDY: No priors. TECHNIQUE: Following the IV administration of 94 cc of Optiray 320, CT scan of the abdomen and pelvis is performed from the lung bases to the proximal femora. Images are reviewed in the axial, sagittal, and coronal planes. IV contrast was administered without complication. A dose lowering technique was utilized adhering to the principles of ALARA. CT DOSE: 286.88 mGy.cm FINDINGS: Lung bases: The heart is normal in size and without pericardial effusion. There is bibasilar scarring/atelectasis. No airspace consolidation or pleural effusion is identified. Liver: The contrast-enhanced liver is normal in size, contour, and attenuation. There is no intrahepatic biliary ductal dilatation. The hepatic veins and portal veins are patent. Gallbladder: Unremarkable. Spleen: Normal in size and attenuation. Pancreas: Unremarkable. Adrenal glands: Unremarkable. Kidneys: The contrast enhanced kidneys are normal in size. The kidneys enhance symmetrically. There is a large right-sided extrarenal pelvis with mild right- sided hydronephrosis. The right ureter is normal in caliber, and this likely represents a UPJ type obstruction. There are tiny layering stones versus excr eted contrast within the extrarenal pelvis. No hydronephrosis is seen on the left. Urothelial thickening and enhancement is identified involving the renal pelvis bilaterally, right greater than left. Small nonobstructing left renal calculi measure up to 3 mm. Scattered subcentimeter cortical hypodensities likely represent cysts but are too small for definitive characterization. Abdominal vasculature: The abdominal aorta is normal in course and caliber. Bowel: There is postoperative change from rectosigmoid resection. An ostomy is seen in the left lower quadrant. There is moderate colonic fecal retention. No bowel obstruction is seen. The appendix is well-visualized and normal. Peritoneum: There is no intraperitoneal free air or abdominal ascites. Lymphadenopathy: None. Pelvic viscera: Bladder calculi are suspected on image #[id number]. The bladder is partially decompressed and otherwise grossly normal as imaged. The uterus is surgically absent. No adnexal lesion is seen. Skeletal structures: The skeletal structures are osteopenic. There is moderate lumbosacral spondylosis. There is a mild chronic superior endplate compression deformity of L2. There is likely chronic avulsion fracture the anterior/inferior endplate of L1. No lytic or blastic lesions are seen. IMPRESSION: 1. There is a large extrarenal pelvis on the right with mild right-sided hydronephrosis. The right ureter is normal in caliber, with no obstructing stone or lesion clearly identified. This likely represents a UPJ type obstruction. There is a small amount of excreted contrast versus tiny layering stones within the extrarenal pelvis. Follow-up with urology is recommended. 2. Urothelial thickening and enhancement is seen in the renal pelvis bilaterally, right greater than left as well as involving the ureters. This could be seen with urinary tract infection. Correlate with clinical findings and urinalysis. 3. Left-sided nephrolithiasis. 4. There is postoperative change from rectal resection and left lower quadrant colostomy. No bowel obstruction is identified. 5. Moderate constipation. 6. Additional findings as above. ACT 112: Negative or not required by law. Electronically signed by: Giovanni Ponce M.D. 06/20/2021 12:16 PM Hospital Course (1) UTI (urinary tract infection): 2nd to enterococcus faecalis. This is the 5th time she has grown this bacterium since 04/2021. Received IV ampicillin while here, then transitioned to oral amoxicillin. She will complete a 2-week course of antibiotics for this UTI. I advised a follow-up culture at the conclusion of the antibiotic course for test of cure. Blood cultures remained negative while hospitalized. I suspect that her urinary tract anatomical abnormalities are setting her up for recurrent UTIs. Her IgG deficiency could also be contributing. Thus, we administered IVIG 1gm/kg IV x 1. The patient will have follow-up with [facility] within a few weeks of discharge. (2) Hematuria: Gross hematuria. Likely 2nd to UTI. Cannot rule out a small, passed kidney stone contributing to the hematuria. Hematuria improved while here. She will have outpatient cystoscopy in the weeks after discharge. (3) Extrarenal pelvis: RIGHT. With mild hydronephrosis. She may have a UPJ obstruction. She will need close follow-up with [facility] post-discharge to address this issue. (4) Monoclonal gammopathy: Follows with Dr Red Garcia, [facility]. Total IgG level = 288, IgA level = 10.6; both in April 2021. In light of her recurrent UTIs we administered 1gm/kg of IVIG while here. She will f/u with Dr Garcia as scheduled. (5) History of rectal cancer: 1991 s/p resection and colostomy formation (6) Osteoporosis: Continue vitamin D and calcium supplementation (7) Hypokalemia: Review of the EMR shows her K levels are either mildly low or low-normal range chronically. Thus, KCL 10meq po daily was recommended. Total Time Total Time Spent Total Time Spent (In Minutes): 40 Discharge Plan Discharge Items Patient Disposition: Home - Self-Care Reason For Visit: HEMATURIA (blood in urine) Discharge Diagnosis: 1. hematuria - improving; likely due to combination of factors including UTI, etc 2. urinary tract infection (UTI) 3. abnormal urinary tract anatomy on the right sided - follow-up with [facility] for this 4. mildly low potassium 5. low immune globulin levels - IVIG given on 06/20/21 Condition on Discharge: Good Activity: As commented below Activity Comment: as tolerated/gradually increase over the next week Driving/Machine Use: No limitations Non-emergency contact: Primary Care Provider and Urologist Call non-emergency contact if: you have any medication questions, your symptoms worsen and you have a fever Follow-up/Referrals: Sharan Pittman MD [Primary Care Provider] - (1 week THE OFFICE WILL CALL PATIENT WITH HOSPITAL F/U VISIT; DUE TO LACK OF AVAILABILITY. PER WENDY.) Jarocho Kang MD [Physician] - 07/10/21 4:00 pm (2-3 weeks - dx: recurrent UTIs, hematuria, abnl urinary tract anatomy on right ) Diet: Regular Addtl Attending Provider Instructions: Mrs Person, You were treated for urinary tract infection and monitored for recurrent blood in the urine during your brief stay. [facility] saw you in consult and they plan to perform an outpatient cystoscopy to look up in your bladder and the remainder of your urinary tract. The cause of the blood could have been a combination of factors including the UTI, a passed kidney stone, or other causes. The urine culture is again growing enterococcus which has grown on the last several cultures. Finally, your potassium was mildly low. A review of your medical record shows that your potassium level runs low-normal chronically. You would likely benefit from a low-dose daily supplement of potassium. Recommendations - 1. amoxicillin 500mg twice daily x 14 days; first dose TONIGHT. This is your antibiotic for the urinary tract infection. 2. eat yogurt daily while on the amoxicillin. 3. take an gtxy-twc-otuyhea probiotic daily while on the amoxicillin. 4. take potassium 10meq once daily starting tomorrow. Please have Dr Pittman recheck your potassium levels in about 1 week. He can decide if you should remain on the potassium chronically. 5. your blood pressures were rather high during your brief stay with systolic BPs (the "top" number) in the 140-160 range consistently. Please consider purchasing a blood pressure cuff for your home and checking your blood pressure there once or twice daily. Please show these values to Dr Pittman at time of follow-up. Follow-up - see separate section Return to [facility] if - * you have fevers over 100 degrees * you are seeing large amounts of blood in your urine * you have significant back, flank or abdominal pains * you develop significant loose/watery stool via your ostomy (more than your usual amount of stool) * any other concerns It was our pleasure caring for you! Dr Ledesma Pending Studies at Discharge: Yes Studies:: blood cultures but thus far negative; urine culture- growing enterococcus (same organism as previous) Stand-Alone Forms: My [facility], Smoking Cessation Medications and DC Order Prescriptions: New amoxicillin 500 mg capsule 500 mg PO BID 14 Days Qty: 28 RF: 0 potassium chloride 10 mEq capsule, extended release 10 meq PO DAILY Qty: 30 RF: 0 Continued vitamin B complex [B Complex-Vitamin B12] Tablet 1 tab PO DAILY PRN (Reason: "when she feels like it") RF: 0 calcium carbonate 600 mg calcium (1,500 mg) tablet 300 mg PO BID RF: 0 cholecalciferol (vitamin D3) 50 mcg (2,000 unit) tablet 1,000 unit PO QAM RF: 0 Discharge Orders: Discharge Order (Routine); Ordered 06/21/21 Ordered By: Hung Ledesma Admission Data Admit Date/Time: 06/20/21 15:01 Attending Provider: Hung Ledesma Admit Provider: Hung Ledesma Primary Care Provider: Sharan Pittman Other Providers: Hung Ledesma ; Dane Benito Other Interventions: Discharge Summary Assessment (RN) Last Done: 06/21/21 12:36 Coding Level of Care Code 29633 OBS Care - Discharge Diagnoses UTI (urinary tract infection) N39.0; R31.9 Hematuria presence: with hematuria Urinary tract infection type: site unspecified Hematuria R31.9 Monoclonal gammopathy D47.2 History of rectal cancer Z85.048 Osteoporosis M81.0 Extrarenal pelvis Hypokalemia E87.6
== END 2021-06-21 13:25 | disposition home or self-care (01) ==
LOC: ED 09:10 → INTOOBSV 15:01 → 3W 15:01

== ENCOUNTER 2021-07-04 06:43 | Observation (INO) ==
--- NOTE | 2021-06-01 10:47 | PAT Medication Instructions ---
Medication Instructions Date of Service June 01, 2021 Home Medications Medication Instructions Recorded meclizine 25 mg tablet See Rx Instructions PO .TAKE 1/2 01/12/20 TO 1 TABLET EVERY 6 HOURS NEEDED FOR DIZZINESS. PRN #20 tab clobetasol 0.05 % topical ointment 1 applic TOP BID PRN #30 g 08/26/20 ciprofloxacin HCl 250 mg tablet 250 mg PO BID 7 Days #14 tab 05/25/21 calcium carbonate 600 mg calcium (1,500 mg) tablet 300 mg PO BID cholecalciferol (vitamin D3) 50 mcg (2,000 unit) tablet 1,000 unit PO QAM vitamin B complex (B Complex-Vitamin B12) 1 tab PO DAILY PRN meclizine 25 mg tablet See Rx Instructions PO .TAKE 1/2 TO 1 TABLET EVERY 6 HOURS NEEDED FOR DIZZINESS. PRN clobetasol 0.05 % topical ointment 1 applic TOP BID PRN ciprofloxacin HCl 250 mg tablet 250 mg PO BID 7 Days fluticasone furoate 27.5 mcg/actuation nasal spray,suspension (Flonase Sensimist) 1 spray INTRANASAL DAILY PRN silver sulfadiazine 1 % topical cream 1 applic TOPICAL BID PRN Continue as directed ciprofloxacin HCl 250 mg tablet 250 mg PO BID 7 Days STOP taking 24 hours before surgery clobetasol 0.05 % topical ointment 1 applic TOP BID PRN silver sulfadiazine 1 % topical cream 1 applic TOPICAL BID PRN DO NOT take the morning of surgery calcium carbonate 600 mg calcium (1,500 mg) tablet 300 mg PO BID cholecalciferol (vitamin D3) 50 mcg (2,000 unit) tablet 1,000 unit PO QAM vitamin B complex (B Complex-Vitamin B12) 1 tab PO DAILY PRN Take morning of surgery meclizine 25 mg tablet See Rx Instructions PO .TAKE 1/2 TO 1 TABLET EVERY 6 HOURS NEEDED FOR DIZZINESS. PRN (if needed) fluticasone furoate 27.5 mcg/actuation nasal spray,suspension (Flonase Sensimist) 1 spray INTRANASAL DAILY PRN (if needed) Take evening before surgery calcium carbonate 600 mg calcium (1,500 mg) tablet 300 mg PO BID vitamin B complex (B Complex-Vitamin B12) 1 tab PO DAILY PRN (if needed) meclizine 25 mg tablet See Rx Instructions PO .TAKE 1/2 TO 1 TABLET EVERY 6 HOURS NEEDED FOR DIZZINESS. PRN (if needed) fluticasone furoate 27.5 mcg/actuation nasal spray,suspension (Flonase Sensimist) 1 spray INTRANASAL DAILY PRN (if needed) Other Notes If you have any questions please call us at [phone] or [phone] or [phone] or [phone]
--- NOTE | 2021-06-06 09:50 | Anesthesiology Consultation ---
Date of Service June 06, 2021 Assessment & Plan (1) Encounter for pre-operative examination: Chart Review Chart Review: Acceptable Risk for Surgery (pending preop Covid testing results ) and Patient seen in Pre Admission Testing Upon discussion with Dr. Garcia- patient is an acceptable candidate for [facility] from anesthesia perspective. Patient is motivated, has good support; pending surgeon's office completes [facility] preop requirements- patient may proceed with outpatient TKA. Per PAT appt on 06/06/21, patient denies any recent travel or large group activities. No known Covid positive exposures or Covid related symptoms. No known Covid infection in the past 90 days. Pt is vaccinated for Covid. Preop Covid testing scheduled 06/30/21= will await results. Educated on importance of self quarantining, social distancing and wearing mask in public for the patient one week prior to surgery and after Covid testing done Teaching & Discussion Pre-Anesthesia Teaching/Discussion Notes: Instructed NPO after midnight before surgery,except medications with 15 cc of water. Medication instructions provided according to the PAT guidelines. History Surgery Operation Date: 07/04/21 07:00 Proposed Procedures p OP: Right Total Knee Arthroplasty - Tomi Cook, Height/Weight Height: 5 ft 4 in Weight: 62.6 kg Allergies Allergy/AdvReac Type Severity Reaction Status Date / Time amoxicillin AdvReac Mild Loose Verified 05/31/21 12:15 stools clavulanic acid AdvReac Mild Loose Verified 05/31/21 12:15 stools Medications Home Medications Medication Instructions Recorded Confirmed Last Taken calcium carbonate 600 mg calcium 300 mg PO BID 06/29/19 06/06/21 07/31/20 08:00 (1,500 mg) tablet cholecalciferol (vitamin D3) 50 1,000 unit PO QAM 06/29/19 06/06/21 07/31/20 08:00 mcg (2,000 unit) tablet vitamin B complex (B 1 tab PO DAILY PRN 06/29/19 06/06/21 07/31/20 08:00 Complex-Vitamin B12) meclizine 25 mg tablet See Rx Instructions PO .TAKE 1/2 01/12/20 06/06/21 Unknown TO 1 TABLET EVERY 6 HOURS NEEDED FOR DIZZINESS. 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 Lichen simplex chronicus Possible lichen sclerosis - follows with derm Stable Monoclonal gammopathy Under observation Osteoporosis Parastomal hernia Stable Personal hx-rectal/anal malignancy Diagnosed 1991--sx only UTI (urinary tract infection) TAKING ANTIBIOTICS CURRENTLY-URINE RECHECK 06/05/21 THRU PCP Mild urine frequency/urine cloudy- otherwise no other symptoms Will follow up with PCP today Exercise / Class Metabolic Activity II 4-5 Yardwork/Stairs/Walk up hill (one flight of stairs - no chest pain or SOB ) Past Family History Family History Mother Alzheimer disease Grandmother (Maternal) Diabetes Father Hypertension Stroke Other No family history of adverse response to anesthesia Denies family history of Ovarian cancer Prostate cancer Myocardial infarction Breast cancer Past Surgical History Surgical History H/O total cystectomy Bartholin Gland or cyst History of section x3 History of colectomy 9 inches removed [address] [facility] d/t rectal cancer-COLOSTOMY History of colonoscopy with polypectomy History of elbow surgery left History of wisdom tooth extraction Nausea and vomiting after administration of anesthetic agent S/P colostomy S/P hysterectomy S/P tonsillectomy Status post laser cataract surgery of both eyes Past Anesthesia History No Hx of Anesthesia Complications (with exception to PONV ) and No Family Hx of Anesthesia Complications History of PONV History of PONV and Hx of Motion Sickness Social History Smoking Status: Never smoker Do You Dip or Chew Tobacco: No Hx Alcohol Use: Yes Alcohol type: wine alcohol intake frequency: 0-2 drinks per day (1-2 glasses/day ) Hx Substance Use: No substance use type: does not use Review of Systems S/p blood transfusion- s/p bowel surgery Patient denies chest pain, shortness of breath, dyspnea on exertion, reflux, cough, wheezing, palpitations. No hx of seizures, stroke, DE, apnea/snoring. No hx of blood clots. Physical Exam Vital Signs VITALS BP 146/80 P 91 TEMP 98.3 SP02 100% RESP 16 Constitutional no acute distress ENMT Mouth: + small oral opening; no TMJ clicking Thyromental Distance: > or= 3.5 Finger Breadths (3.5) Mallampati Class: IV Neck + limited neck extension (mild) Respiratory normal respiratory effort; no respiratory distress Auscultation: lungs clear to auscultation bilaterally; no wheezes Cardiovascular Rate/Rhythm: regular rate and regular rhythm Heart Sounds: no murmur Vessels: no carotid bruit Musculoskeletal Spine: no pain with cervical ROM Extremities: extremities normal to inspection Psychiatric Orientation: alert Lab Results Anesthesia Preop Results Results Anesthesia Widget: WBC 5.70 K/uL (4.8-10.8) 06/06/21 Hgb 13.0 g/dL (12.0-16.0) 06/06/21 Hct 38.0 % (37-47) 06/06/21 Plt 200 K/uL (130-400) 06/06/21 Na 140 mmol/L (136-145) 06/06/21 K 3.8 mmol/L (3.5-5.1) 06/06/21 Cl 104 mmol/L (98-107) 06/06/21 CO2 28 mmol/L (21-32) 06/06/21 BUN 19 mg/dl (6-23) 06/06/21 Creat 0.85 mg/dl (0.6-1.2) 06/06/21 Glucose Level 89 mg/dl (70-99(Fasting)) 06/06/21 PT 10.4 Seconds (9.0-12.0) 06/06/21 PTT 24.9 Seconds (21.0-31.0) 06/06/21 INR 1.0 (0.9-1.1) 06/06/21 Urine Color Yellow 06/05/21 Urine Appearance Cloudy (Clear) A 06/05/21 Urine pH 7.0 (4.5-7.5) 06/05/21 Urine Specific [place] 1.014 (1.000-1.030) 06/05/21 Urine Protein Negative (Negative) 06/05/21 Urine Glucose (UA) Negative (Negative) 06/05/21 Urine Ketones Negative (Negative) 06/05/21 Urine Blood Negative (Negative) 06/05/21 Urine Nitrite Negative (Negative) 06/05/21 Urine Bilirubin Negative (Negative) 06/05/21 Urine Urobilinogen Negative (Negative) 06/05/21 Urine Leukocyte Esterase Negative (Negative) 06/05/21 Urine WBC (Auto) 5-10 /hpf (0-5) H 06/05/21 Urine RBC (Auto) 0-4 /hpf (0-4) 06/05/21 Urine Hyaline Casts (Auto) 5-10 /lpf (0-5) H 06/05/21 Urine Epithelial Cells (Auto) >30 /lpf (0-5) H 06/05/21 Urine Bacteria (Auto) Negative (Negative) 06/05/21 Urine Amorphous Sediment Present (None Prsent) A 05/01/21 Urine Yeast Not Reportable 05/01/21 Blood Type O Positive 06/06/21 Antibody Screen NEGATIVE 06/06/21 Testing Electrocardiogram Date: 06/06/21 SR with PACs at 73bpm. Incomplete RBBB. When compared to EKG from Feb 19, 2017- PACs are now present, vent rate has decreased by 43bpm, ST no longer depressed in lateral leads per cardio Chest X-Ray Date: 06/06/21 Findings: + NAD Stress Test Date: 05/19/19 Type: exercise (ECHO) Resting EF: 65-70% Resting LV Function: normal Resting RWMA: + none Normal stress ECHO. MPHR 107%. 10.1 METS achieved. Exercise capacity is above average. Stress EKG response was normal. Mild AR. Grade I DD.
[~2021-07-04 06:43] MED LIST changes: +ACETAMINOPHEN 500 MG TAB PO SCH; -CALC-393 PO; -CHOL100010 PO; +FAMOTIDINE 20 MG TAB PO SCH; +GABAPENTIN 300 MG CAP PO SCH; +Ketorolac (*for OR use only*) 30 MG, dexAMETHasone 4 MG, KETAMINE HCL (**OR use only) 1... INFIL SCH; +LIDOCAINE 2%/EPINEPHRINE 1:200,000 20 ML SDV ONE; +LR 15ML/HR IV SCH; +LR 60ML/HR IV SCH; +ROPIVACAINE 0.5% 5 MG/ML 30 ML VIAL ONE; +TRANEXAMIC ACID 1,000 MG **IV Intra-op IV SCH; +TRANEXAMIC ACID 1,000 MG **IV Pre-op IV SCH; +ceFAZolin 1000MG 1,000 MG/7.5 ML SYR IV SCH; +dexAMETHasone 4 MG TAB PO SCH
--- NOTE | 2021-07-04 06:50 | History & Physical Bridge Note ---
Date of Service July 04, 2021 History & Physical Bridge Note I have examined the patient, reviewed the History & Physical and in the interval since the performance of the History & Physical I have noted the following changes of clinical significance: no changes noted
[2021-07-04] MEDS ORDERED: MIDAZOLAM HCL 1 MG/ML 2ML VIAL ONE (08:00)
[2021-07-04] MEDS ORDERED: ePHEDrine sulfate 50 MG/ML AMP IV PRN (08:07)
[2021-07-04] MEDS ORDERED: ATROPINE SULFATE 0.1 MG/ML 10ML SYR IV PRN (08:07)
[2021-07-04] MEDS ORDERED: fentaNYL citrate 100 MCG/2 ML VIAL IV PRN (08:07)
[2021-07-04] MEDS ORDERED: ONDANSETRON INJ 2 MG/ML 2 ML VIAL IV PRN ×2 (08:07→14:52)
[2021-07-04] MEDS ORDERED: PROPOFOL IV EMULSION 10 MG/ML 20 ML VIAL IV ONE (08:34)
[2021-07-04] MEDS ORDERED: LIDOCAINE 2% 2 ML VIAL/AMP(20MG/ML) INFIL ONE (08:34)
[2021-07-04] MEDS ORDERED: ORTHO JOINT ANESTHETIC ONE (08:35)
[2021-07-04] MEDS ORDERED: BUPIVACAINE 0.5 % 5 MG/1 ML PF 10ML VIAL ONE (08:53)
--- NOTE | 2021-07-04 10:13 | Operative Report ---
PG Post Operative Report Pre & Post Diagnosis Operation Date: 07/04/21 08:50 Pre-Op Diagnosis: Right Knee Osteoarthritis Post-Op Diagnosis: Right Knee Osteoarthritis I identified the patient and participated in the time-out.: Yes Procedure Operation Date: 07/04/21 08:50 Actual Procedures p Right Total Knee Arthroplasty(Right) - Tomi Cook DO Surgeon Tomi Cook DO Branch Examiner Tomi Varghese PAC Estimated Blood Loss 10 Findings Consistent with Post-Op Diagnosis Specimens None Complications none Disposition Disposition: Recovery Room Indications Charmaine is a pleasant 76-year-old female who is been dealing with chronic increasing right knee pain. X-rays and clinical examination are diagnostic for osteoarthritis of the right knee. After failing conservative treatment, she elected proceed with a right total knee arthroplasty. Description of Procedure Implants used: I used a Cindy Persona total knee arthroplasty system with a size 8 narrow femur, D tibia, 31 oval patella, and a size 12 medial congruent polyethylene bearing. All components were cemented in place with Biomet cement. Charmaine arrived [facility] for the above procedure. She was seen in the preoperative holding area and the operative extremity was identified and signed. She was given a preoperative antibiotic, TXA, a spinal anesthetic and an adductor nerve block. She was taken back to the operating room and laid on the table in supine position. She was given basic sedation. The operative knee was then prepped and draped in sterile fashion. A timeout was done, and the patient and the operative extremity was properly identified. A midline incision was made directly over the patella. Dissection was taken down to the extensor mechanism. A subvastus arthrotomy was used. The medial retinaculum was released and the fat pad was mostly excised. The knee was flexed and the ACL, PCL, and meniscus were removed. A drill was sent down the center of the femoral canal followed by an intramed ullary vangie. Off that vangie a distal femoral cutting block was placed. 9 mm was resected off the distal femur at 5 of valgus. A posterior referencing AP sizing guide was then placed on the distal femur. The femur measured to be a size 8. 2 drill holes were placed in 3 of external rotation. A 4-in-1 cutting block was then impacted into place. Anterior, posterior, and chamfer cuts were then made. The proximal tibia was then exposed. An external tibial alignment guide was placed. A tibial cut guide was then anchored in place and the proximal tibia was then resected. The posterior aspect of the knee was then opened up and any additional meniscus fragments and osteophytes were removed. The tibia measured to be a size D. The tibial plate was then placed in the appropriate rotation and the tibia was drilled and punched. Trial components were then placed. I used a size 12 medial congruent polyethylene insert. The knee was brought through a full range of motion and felt to be stable. The peg holes for the femoral component were then drilled. The patella was then everted and 9 mm was resected off the posterior aspect of the patella. The patella measured to be a size 31 oval. 3 peg holes were then drilled. A trial patella was placed. The knee was once again brought through a full range of motion and felt to be stable. Trial components were then removed. The surrounding soft tissues were injected with 100 cc of an orthopedic pain control cocktail. All components were then cemented into place with Biomet cement. The final polyethylene insert was then snapped into place. Once cement was dry the tourniquet was deflated. Hemostasis was obtained. A dilute betadyne lavage was then done for 3 minutes. The joint was then irrigated with normal saline solution. The subvastus arthrotomy was then closed with #1 Vicryl suture. The skin was closed with 2-0 Vicryl, 3-0V lock suture, and jemal. A soft compressive dressing was placed. She was then transferred to a hospital bed and taken to the postanesthesia care unit in stable condition. She tolerated the procedure well. Tomi Varghese PA-C, was present for the entire procedure. He was critical for patient positioning, prepping, draping, retraction exposure, wound closure and application of sterile dressing. I attest to the content of the Intraoperative Record and any orders documented therein. Any exceptions are noted below.
[2021-07-04] MEDS ORDERED: oxyCODONE/ACETAMINOPHEN 5mg/325mg TAB PO PRN (10:16)
--- NOTE | 2021-07-04 10:51 | XRay Report ---
TWO VIEWS RIGHT KNEE CLINICAL HISTORY: Postoperative examination. FINDINGS: AP and crosstable lateral portable views of the right knee are obtained. A right knee arthr oplasty is in near anatomic alignment. There has been undersurface remodeling of the patella. No acut e fracture is seen. There are expected postoperative changes around the knee including skin clips, so ft tissue edema, and subcutaneous gas. IMPRESSION: Expected postoperative changes status post right knee arthroplasty. No acute fracture is seen. ACT 112: Negative or not required by law. Electronically signed by: Giovanni Ponce M.D. 07/04/2021 10:50 AM
--- NOTE | 2021-07-04 11:18 | Anesthesiology Progress Note ---
Date of Service July 04, 2021 Anesthesia Post Procedure Vital Signs Vital Signs: Temp Pulse Pulse Resp BP BP Pulse Ox 07/04/21 11:05 77 12 116/62 97 07/04/21 10:55 87 21 132/72 97 07/04/21 10:45 88 22 126/64 99 07/04/21 10:35 80 18 135/69 99 07/04/21 10:27 97.3 F L 93 H 16 126/64 93 07/04/21 07:15 98.1 F 104 H 20 165/91 H 100 Transfer of Care Handoff Completed per policy Notes Mental Status: alert / awake / arousable and participated in evaluation Patient Amnestic to Procedure: Yes Nausea / Vomiting: adequately controlled Pain: adequately controlled Airway Patency, RR, SpO2: stable & adequate BP & HR: stable & adequate Hydration State: stable & adequate Neuraxial Anesthesia: was administered and sensory block is resolving Anesthetic Complications: no major complications apparent and Pt Satisfied with anesthetic care
[2021-07-04] MEDS ORDERED: MAGNESIUM HYDROXIDE SUSP 30 ML UDC PO PRN (14:52)
[2021-07-04] MEDS ORDERED: bisacodyL 10 MG SUPP PR PRN (14:52)
[2021-07-04] MEDS ORDERED: HYDROmorphone INJ 0.5 MG/0.5 ML SYR IV PRN (14:52)
[2021-07-04] MEDS ORDERED: NALOXONE HCL 0.4 MG/1 ML VIAL/CARP IV PRN (14:52)
[2021-07-04] MEDS ORDERED: METOCLOPRAMIDE HCL INJ 5 MG/ML 2 ML VIAL IV PRN (14:52)
[2021-07-04] MEDS ORDERED: oxyCODONE HCL IR 5 MG TAB (IMMEDIATE RELEASE) PO PRN (14:52)
[2021-07-04] MEDS: SODIUM CHLORIDE 0.9% 1000ML 1,000 ML IV SCH (15:33)
[2021-07-04] MEDS: KETOROLAC TROMETHAMINE 15 MG/ML VIAL IV SCH (17:42)
[2021-07-04] MEDS: ACETAMINOPHEN 500 MG TAB PO SCH (20:58)
[2021-07-04] MEDS: ceFAZolin 2000MG 2,000 MG/15 ML SYR IV SCH (20:58)
[2021-07-04] MEDS: ASPIRIN 81 MG ECTAB PO SCH (20:58)
[2021-07-04] MEDS: DOCUSATE SODIUM 100 MG CAP PO SCH (20:59)
[2021-07-04] MEDS ORDERED: SENNA 8.6 MG TAB PO SCH (21:00)
[2021-07-05] MEDS: SODIUM CHLORIDE 0.9% 1000ML 1,000 ML IV SCH (01:20)
[2021-07-05] MEDS: KETOROLAC TROMETHAMINE 15 MG/ML VIAL IV SCH ×2 (01:28→05:11)
[2021-07-05] MEDS: ceFAZolin 2000MG 2,000 MG/15 ML SYR IV SCH (05:10)
[2021-07-05] MEDS: ACETAMINOPHEN 500 MG TAB PO SCH (05:11)
--- NOTE | 2021-07-05 06:53 | Orthopedic Progress Note ---
Date of Service July 05, 2021 Assessment & Plan (1) Status post right knee replacement: Overall she is doing well. She is having much pain in the right knee. She has been up and ambulating to the bathroom. She is on aspirin for DVT prophylaxis. She will be seen by physical therapy today for ambulation and range of motion exercises. She can be discharged home later today. She will follow with orthopedics in 2 weeks. Shazia Montano was seen and examined at bedside this morning. Overall she doing very well. She is not having much pain in the right knee. She has been up and ambulating to the bathroom. She has no complaints.. Review of Systems All systems reviewed & are unremarkable except as noted in HPI & below. Physical Exam On physical examination of the right knee, the dressing is clean and dry. Her leg lengths are equal. She has active dorsiflexion plantarflexion of her right ankle.. Results & Data Results & Data Laboratory Results . Diagnostic Findings Postoperative x-rays of the right knee show the prosthesis to be in anatomic alignment without any evidence of fracture, screws, or loosening.. PG Care Time/CCT Total # of Minutes Spent Total Time Spent with Patient: Total time spent is greater than 50% in coordination of care (as documented) at patient's floor/unit and/or counseling patient: Coding Level of Care Code 02307 Post Operative Follow-Up Diagnoses Status post right knee replacement Z96.651
--- NOTE | 2021-07-05 06:55 | Discharge Summary ---
Date of Service July 05, 2021 Principal Diagnosis Same as "Discharge Diagnosis" noted below under Discharge Instructions. Discharge Exam On physical examination of the right knee, the dressing is clean and dry. Her leg lengths are equal. She has active dorsiflexion plantarflexion of her right ankle.. Discharge Data Procedures Performed Operation Date: 07/04/21 08:50 Actual Procedures p Right Total Knee Arthroplasty(Right) - Tomi Cook DO Ordered Studies 07/04/21 05:00 US - OR guided needle placemen Routine Hospital Course (1) Status post right knee replacement: On June 25 9021 Phoebe arrived at [facility] and underwent a right knee replacement without complication. She had a spinal anesthetic. Postoperatively she was in our outpatient joint protocol. Unfortunately, it too k her a while to regain range of motion of her ankles. The spinal seemed to have a long affect. Her range of motion return later in the afternoon and was too late to do formal physical therapy so we decided to keep her overnight. She was transferred to the general orthopedic floors. On postop day #1 her vital signs were stable and her pain was well controlled. She was able to participate well with physical therapy doing ambulation and range of motion exercises. She was then discharged home. She will follow-up with orthopedics in 2 weeks. PG Care Time/CCT Total # of Minutes Spent Total Time Spent with Patient: Total time spent is greater than 50% in coordination of care (as documented) at patient's floor/unit and/or counseling patient: Discharge Plan Discharge Items Patient Disposition: Home - Home Health Services Reason For Visit: DJD Right Knee Discharge Diagnosis: Right knee replacement Activity: As commented below Non-emergency contact: Primary Care Provider Call non-emergency contact if: your wound has increased redness and your wound has increased drainage Follow-up/Referrals: [facility] [Outside] (as per surgeon's office ) Sharan Pittman MD [Primary Care Provider] - Diet: Regular Addtl Attending Provider Instructions: Activity and Therapy Recommendations: * If you are using [facility] then therapy will be provided at your home until they feel you have accomplished all of your goals. * If you are using [facility] then Physical Therapy will be provided until they feel you are ready to start Outpatient Physical Therapy. * If you are not using home therapy then Outpatient Physical Therapy should start about 3-5 days from your day of surgery. Therapy will last about 6-10 weeks * It is important not to put a pillow under your knee when you are relaxing or sleeping. It is just as important to make sure you are getting your knee perfectly straight as it is to regain your knee bend. * You were shown a series of exercises in the hospital. Do these exercises three times each day including the exercises you were shown in physical therapy. * Get up and walk several times each day. For the first four weeks, try not to stand or walk for more than one hour at a time. If you do stand or walk for more than one hour, you will not hurt anything, but your leg will likely swell. * As you feel comfortable, you may change from the walker or crutches to a cane and then to independent walking. Medications: * Narcotic You will likely be sent home from the hospital with a prescription for the narcotic pain medication that worked best throughout your stay. * Aspirin Most patients will be required to take Aspirin 81mg twice a day for 6 weeks after surgery. This is obtained [id number] and a prescription is not necessary. * Other medications may be prescribed for specific circumstances. If you have any questions, please call the office at . * Resume previous home medications unless otherwise instructed TEDs/Elastic Stockings: The white elastic stockings help limit swelling and prevent blood clots from forming in your legs.~ The more you wear them, the more they work. Wear them for six weeks. Dressing Care: The dressing can be changed after physical therapy on postop day #1. Daily dry dressing changes for a few days, especially if the incision is still draining some. If the incision is not draining then you may leave the jemal open to air. If there is a little bit of drainage or if the jemal are getting stuck on your clothing then cover the incision with a dry dressing. The jemal will be removed at your 2 week follow-up appointment. Showering: You may shower 5 days from the day of surgery as long as the incision is no longer draining. You may shower with the jemal exposed. Let soapy water run over the jemal and pat them dry. Do not scrub or soak the incision. Things To Watch For: * Drainage from the incision site that occurs more than one week after your surgery. * Increased redness at the incision site. * Fever above 102 degrees Fahrenheit. * Unusual chest pain or shortness of breath. * Call [facility] at with any of the above problems Follow-Up Visit: Follow-up with Dr. Cook's PA (Tomi Varghese) 2-3 weeks after your day of surgery. He will remove your jemal and answer any questions. If you have any additional questions or concerns, Dr Cook is usually in the office at the same time and will be available An appointment was probably scheduled when you signed-up for surgery in the office. If you have any questions call Office Instructions: More detailed instructions as well as Frequently Asked Questions were provided in a folder by our office when you signed-up for surgery. Please review these instructions when you get home. If you have any further questions or concerns, please feel free to call the office at [phone] Pending Studies at Discharge: No Stand-Alone Forms: My [facility] Medications and DC Order Prescriptions: New oxycodone-acetaminophen 5-325 mg tablet 1 tab PO Q6H PRN (Reason: pain) Qty: 30 RF: 0 aspirin [Adult Aspirin Regimen] 81 mg tablet,delayed release (DR/EC) 81 mg PO BID Qty: 84 RF: 0 Continued vitamin B complex [B Complex-Vitamin B12] Tablet 1 tab PO DAILY PRN (Reason: "when she feels like it") RF: 0 calcium carbonate 600 mg calcium (1,500 mg) tablet 300 mg PO BID RF: 0 cholecalciferol (vitamin D3) 50 mcg (2,000 unit) tablet 1,000 unit PO QAM RF: 0 amoxicillin 500 mg capsule 500 mg PO BID 14 Days Qty: 28 RF: 0 potassium chloride 10 mEq capsule, extended release 10 meq PO DAILY Qty: 30 RF: 0 Discharge Orders: Discharge Order (Routine); Ordered 07/05/21 Ordered By: Tomi Cook Admission Data Admit Date/Time: 07/04/21 14:34 Attending Provider: Tomi Cook Admit Provider: Tomi Cook Primary Care Provider: Sharan Pittman
[2021-07-05] MEDS ORDERED: dexAMETHasone 4 MG TAB PO SCH (08:00)
[2021-07-05] MEDS: DOCUSATE SODIUM 100 MG CAP PO SCH (08:13)
[2021-07-05] MEDS: ASPIRIN 81 MG ECTAB PO SCH (08:14)
[2021-07-05] MEDS ORDERED: POTASSIUM CHLORIDE 10 MEQ TABCR PO SCH (09:00)
[2021-07-05] MEDS ORDERED: MULTIVITAMIN TAB PO SCH (09:00)
== END 2021-07-05 11:42 | disposition home or self-care (01) ==
LOC: PACUINP 06:43 → ASU 06:43 → 3W 17:29

== ENCOUNTER 2022-07-16 06:50 | Observation (INO) ==
--- NOTE | 2022-06-12 13:09 | PAT Medication Instructions ---
Medication Instructions Date of Service June 12, 2022 Home Medications Medication Instructions Recorded tramadol 50 mg tablet 50 mg PO Q6H PRN pain #20 tabs 05/16/22 tramadol 50 mg tablet 50 mg PO Q6H PRN pain #30 tabs 05/25/22 tramadol 50 mg tablet 50 mg PO Q6H PRN pain #30 tabs 06/08/22 calcium carbonate 600 mg calcium (1,500 mg) tablet 300 mg PO BID cholecalciferol (vitamin D3) 50 mcg (2,000 unit) tablet 1,000 unit PO QAM vitamin B complex (B Complex-Vitamin B12 tablet) 1 tab PO QAM PRN "when she feels like it" tramadol 50 mg tablet 50 mg PO Q6H PRN pain DO NOT take the morning of surgery calcium carbonate 600 mg calcium (1,500 mg) tablet 300 mg PO BID cholecalciferol (vitamin D3) 50 mcg (2,000 unit) tablet 1,000 unit PO QAM vitamin B complex (B Complex-Vitamin B12 tablet) 1 tab PO QAM PRN "when she feels like it" Take morning of surgery With a small sip of water, OTHERWISE NOTHING TO EAT OR DRINK AFTER MIDNIGHT: tramadol 50 mg tablet 50 mg PO Q6H PRN pain (if needed) Take evening before surgery tramadol 50 mg tablet 50 mg PO Q6H PRN pain (if needed) Other Notes If you have any questions please call us at [phone] or [phone] or [phone] or [phone]
--- NOTE | 2022-06-19 14:34 | Anesthesiology Consultation ---
Date of Service June 19, 2022 Assessment & Plan (1) Encounter for pre-operative examination: - s/p 11/20/21 L TKA epidural x 1 attempt + PNB. Post-op anesthesia progress note: "...Mental Status: alert / awake / arousable...Neuraxial Anesthesia: was administered and sensory block is resolving..." Pt states was discharged home same day, was approved as outpatient joint by PAT. Physical therapy note reports patient was discharged home same day. Ortho note mentions inpatient stay, how ever there is no discharge summary as completed with overnight 06/2021 stay. - s/p 07/04/21 R TKA SAB L3-L4 + PNB. Post-op anesthesia progress note: "...Mental Status: alert / awake / arousable and participated in evaluation...Neuraxial Anesthesia: was administered and sensory block is resolving..." Pt feels she was kept overnight due to slowness waking up after R TKA. Ortho discharge summary 07/05/21: "...Postoperatively she was in our outpatient joint protocol. Unfortunately, it took her a while to regain range of motion of her ankles. The spinal seemed to have a long affect. Her range of motion return later in the afternoon and was too late to do formal physical therapy so we decided to keep her overnight." - Outpatient joint pathway: Per surgeon and patient, plan for outpatient joint program. Upon review of chart- patient is an acceptable candidate for Same Day Joint Program from anesthesia perspective pending perioperative course. Pending patient is motivated, has good support and surgeon's office completes Same Day Joint Program preop requirements- patient may proceed with outpatient BRYANNA. Pt denies any residual issues of numbness or weakness after neuraxial anesthesia in the past. She states that with initial TKA per records received spinal, she was slow to wake so remained overnight. To record review, she then had epidural anesthesia for subsequent TKA and was approved outpatient. was then and will be for upcoming procedure per pt her 80 y/o . Case discussed in detail with Dr. Ybarra including above, he advised pt can proceed as planned outpatient joint. Chart Review Chart Review: Acceptable Risk for Surgery and Patient seen in Pre Admission Testing Teaching & Discussion Pre-Anesthesia Teaching/Discussion Notes: Instructed NPO after midnight before surgery, except medications with 15 cc of water. Medication instructions provided according to the PAT guidelines. History Surgery Operation Date: 07/16/22 10:40 Proposed Procedures p Right Anterior Total Hip Arthroplasty - Tomi Cook, Height/Weight Height: 5 ft 4 in Weight: 58.967 kg Allergies Allergy/AdvReac Type Severity Reaction Status Date / Time amoxicillin AdvReac Mild Loose Verified 06/12/22 12:12 stools clavulanic acid AdvReac Mild Loose Verified 06/12/22 12:12 stools Medications Home Medications Medication Instructions Recorded Confirmed Last Taken calcium carbonate 600 mg calcium 300 mg PO BID 06/29/19 06/12/22 1 Week Ago (1,500 mg) tablet ~11/13/21 cholecalciferol (vitamin D3) 50 1,000 unit PO QAM 06/29/19 06/12/22 1 Week Ago mcg (2,000 unit) tablet ~11/13/21 vitamin B complex (B 1 tab PO QAM PRN "when she feels 06/29/19 06/12/22 1 Week Ago Complex-Vitamin B12 tablet) like it" ~11/13/21 tramadol 50 mg tablet 50 mg PO Q6H PRN pain #20 tabs 05/16/22 06/12/22 Unknown tramadol 50 mg tablet 50 mg PO Q6H PRN pain #30 tabs 05/25/22 06/12/22 Unknown tramadol 50 mg tablet 50 mg PO Q6H PRN pain #30 tabs 06/08/22 06/12/22 Unknown oxycodone-acetaminophen 5 mg-325 1 tab PO Q6H PRN pain #30 tabs 06/19/22 06/19/22 Unknown mg tablet (Percocet) Past Medical History Medical History Atrial premature complex Occasionally symptomatic- "mild" Colostomy in place No current issues Hematuria History of blood transfusion Post-op bowel surgery History of rectal cancer IgA deficiency, selective Under observation x 6 years ([facility]) Lichen simplex chronicus Possible lichen sclerosis - follows with derm Stable Monoclonal gammopathy Under observation Osteoporosis Parastomal hernia Stable Personal hx-rectal/anal malignancy Diagnosed 1991- s/p surgery Patient denies h/o stroke, seizures, heart attack, heart failure, DM, HTN, blood clots. Exercise / Class Metabolic Activity III < 4 Walking/Shop/Light housework (denies chest discomfort or shortness of breath with usual activities, ambulates with walker) Past Family History Family History Mother Alzheimer disease Grandmother (Maternal) Diabetes Father Hypertension Stroke Other No family history of adverse response to anesthesia Denies family history of Ovarian cancer Prostate cancer Myocardial infarction Breast cancer Past Surgical History Surgical History H/O total cystectomy Bartholin Gland or cyst History of anesthesia complications "Remained numb until the next day after her spinal" History of section x3 History of colectomy 9 inches removed [address] [facility] in [place] d/t rectal cancer> colostomy History of colonoscopy with polypectomy History of elbow surgery left History of wisdom tooth extraction Nausea and vomiting after administration of anesthetic agent S/P colostomy S/P hysterectomy S/P tonsillectomy Status post laser cataract surgery of both eyes Status post left knee replacement Left TKA (11/20/21): SAB x1 attempt + PNB at [facility] Status post right knee replacement Right TKA (07/04/21): SAB at L3/4 + PNB at [facility] Past Anesthesia History No Family Hx of Anesthesia Complications and Other (pt reports h/o slow to wake after R TKA, records indicate extended spinal effect specifically regaining ankle motion which delayed formal PT evaluation and resulted in overnight stay) History of PONV History of PONV (denies needing scop patch) and Hx of Motion Sickness Social History Smoking Status: Never smoker Do You Dip or Chew Tobacco: No Hx Alcohol Use: Yes Alcohol type: wine alcohol intake frequency: a few times a month Hx Substance Use: No substance use type: does not use Review of Systems Chronic rare palpitations-reports previous work-up yrs ago; denies change or worsening, no associated dizziness, lightheadedness, presyncope, chest discomfort or shortness of breath. Patient denies chest pain, shortness of breath, dyspnea on exertion, snoring, witnessed apneas, reflux, fever, chills, cough, or wheezing. Physical Exam Vital Signs Vitals BP 171/90 left arm sitting (pt notes is in chronic significant left knee pain, alleviated with standing). Manual BP left arm sitting 168/90 P 93 TEMP 98.7 SP02 98% on RA RESP 17 Physical Full cervical extension range of motion without pain TMD 3.5 finger breadths Mallampati Score 2 Dentition: intact, denies chipped or loose teeth, caps/crowns, implants or bridges Lungs: normal respiratory effort. Clear throughout to auscultation, no adventitious breath sounds Cardiac: regular rate and rhythm, no murmurs noted Carotid arteries: negative bruit bilat Lab Results Anesthesia Preop Results Results Anesthesia Widget: WBC 5.97 K/ul (4.8-10.8) 06/19/22 Hgb 12.4 g/dl (12.0-16.0) 06/19/22 Hct 36.0 % (37.0-47.0) L 06/19/22 Plt 179 K/uL (130-400) 06/19/22 Na 138 mmol/L (136-145) 06/19/22 K 3.7 mmol/L (3.5-5.1) 06/19/22 Cl 102 mmol/L (98-107) 06/19/22 CO2 27 mmol/L (21-32) 06/19/22 BUN 15 mg/dl (6-23) 06/19/22 Creat 0.73 mg/dl (0.6-1.2) 06/19/22 Glucose Level 83 mg/dl (70-99(Fasting)) 06/19/22 PT 10.5 Seconds (9.0-12.0) 06/19/22 PTT 25.9 Seconds (21.0-31.0) 06/19/22 INR 1.0 (0.9-1.1) 06/19/22 Blood Type O Positive 06/19/22 Antibody Screen NEGATIVE 06/19/22 Testing Electrocardiogram Date: 06/19/22 Sinus rhythm with marked sinus arrhythmia, rate 84 bpm Premature atrial complexes Chest X-Ray The heart is top normal for projection noting atherosclerotic calcification of the thoracic aorta. The pulmonary vasculature is non-congested. Chronic interstitial thickening similar to previous. There is bibasilar scarring/atelectasis. No airspace consolidation or large pleural effusion is identified. There is no pneumothorax. The skeletal structures are osteopenic. The bony thorax appears intact. Degenerative change is noted in the thoracic spine. IMPRESSION: No active disease in the chest. Stress Test Date: 05/19/19 Exercise METS 10 MPHR 107% Normal, no inducible ischemia Normal LV wall motion EF 65-70% Global thinning of the LV mcconnell Mild aortic regurgitation Grade I diastolic dysfunction COVID-19 Risk Screen Screening Information COVID-19 Screen Date: 06/19/22 Exposure 21 Days Family/Household +COVID Last 21 Days: No Exposure 10 Days Any COVID Exposure Last 10 Days: No Symptoms Last 10 Days Experienced COVID Sx Last 10 Days: No + COVID 0-90 Days COVID + in Last 0-90 Days: No
[~2022-07-16 06:50] MED LIST changes: -LIDOCAINE 2%/EPINEPHRINE 1:200,000 20 ML SDV ONE; -LR 15ML/HR IV SCH; +LR 500ML BOLUS, THEN 15ML/HR IV SCH; +MEPIVACAINE HCL 1.5% 30 ML VIAL ONE; -ROPIVACAINE 0.5% 5 MG/ML 30 ML VIAL ONE; -ceFAZolin 1000MG 1,000 MG/7.5 ML SYR IV SCH; +ceFAZolin 2000MG 2,000 MG/15 ML SYR IV SCH
[2022-07-16] MEDS ORDERED: PROPOFOL IV EMULSION 10 MG/ML 20 ML VIAL IV ONE (07:19)
[2022-07-16] MEDS ORDERED: ROPIVACAINE 0.5% 5 MG/ML 30 ML VIAL ONE (07:19)
[2022-07-16] MEDS ORDERED: MIDAZOLAM HCL 1 MG/ML 2ML VIAL ONE (07:19)
[2022-07-16] MEDS ORDERED: ONDANSETRON INJ 2 MG/ML 2 ML VIAL ONE (07:19)
[2022-07-16] MEDS ORDERED: LIDOCAINE 2% MPF LOCAL 5 ML VIAL ONE (07:19)
--- NOTE | 2022-07-16 08:07 | History & Physical Bridge Note ---
Date of Service July 16, 2022 History & Physical Bridge Note I have examined the patient, reviewed the History & Physical and in the interval since the performance of the History & Physical I have noted the following changes of clinical significance: no changes noted
[2022-07-16] MEDS ORDERED: fentaNYL citrate PF 100 MCG/2 ML VIAL ONE (08:38)
[2022-07-16] MEDS ORDERED: fentaNYL citrate PF 100 MCG/2 ML VIAL IV PRN (08:43)
[2022-07-16] MEDS ORDERED: ONDANSETRON INJ 2 MG/ML 2 ML VIAL IV PRN ×2 (08:43→13:03)
[2022-07-16] MEDS ORDERED: KETOROLAC 30 MG/ML VIAL IV PRN (08:43)
[2022-07-16] MEDS ORDERED: ePHEDrine sulfate 50 MG/ML AMP IV PRN (08:43)
[2022-07-16] MEDS ORDERED: ATROPINE SULFATE 0.1 MG/ML 10ML SYR IV PRN (08:43)
[2022-07-16] MEDS ORDERED: ORTHO JOINT ANESTHETIC ONE (08:57)
[2022-07-16] MEDS ORDERED: ALBUMIN HUMAN 5% 12.5 GM/250 ML VIAL IV ONE (10:48)
--- NOTE | 2022-07-16 11:00 | Operative Report ---
PG Post Operative Report Pre & Post Diagnosis Operation Date: 07/16/22 09:30 Pre-Op Diagnosis: Right Hip Osteoarthritis Post-Op Diagnosis: Right Hip Osteoarthritis I identified the patient and participated in the time-out.: Yes Procedure Operation Date: 07/16/22 09:30 Actual Procedures p Right Anterior Total Hip Arthroplasty--Uncemented(Right) - Tomi Cook DO Surgeon Tomi Cook DO [employer] Code Enforcement Officer Tomi Varghese PA-C Estimated Blood Loss 350 Findings Consistent with Post-Op Diagnosis Specimens Right femoral head Description of Procedure Implants used I used a ZimmerBiomet total hip arthroplasty system with a size 1 high offset Avenir Complete stem, a 48 mm Osseoti G7 cup with a 25mm screw, a 30 mm screw, an E1 polyethylene liner, a 32 mm ceramic head with a 0 neck. Charmaine arrived at the hospital for the above procedure. She was seen in the preoperative holding area and the operative extremity was identified and signed. She was given a spinal anesthetic, a preoperative antibiotic, and TXA. She was then taken back to the operating room and laid on the table in the supine position. She was given basic sedation. The operative leg was secured to a Puristst leg positioner. The hip was then prepped and draped in sterile fashion. A timeout was done and the patient and the operative extremity was properly identified. An anterior approach was used. Dissection was taken down through the fascia and the tensor muscle belly was retracted laterally and the rectus was retracted medially. The circumflex vessels were identified and ligated. The capsule was then incised and tagged for later repair. The femoral neck was then cut and the femoral head was removed. The acetabulum was exposed. Time was spent doing a complete circumferential labral release. Sequential reaming of the acetabulum up to a size 47 reamer was done. Final reamings were done under fluoroscopy to ensure appropriate version. The acetabulum was shallow and I thought I would have difficulty getting a good press-fit. I decided to use an Osseoti A Biomet 48 mm Osseoti G7 cup was then impacted into place. A single 25 mm screw and a single 30 mm screw were placed. The E1 polyethylene liner was then snapped into place. Surrounding soft tissues were then injected with 100 cc of an orthopedic pain control cocktail. The proximal femur was then exposed. Sequential broaching up to a size 1 broach was done. Off that broach a size 32 head with a 0 neck was trialed. The hip was reduced and fluoroscopic images showed anatomic alignment of the implants in acceptable length. The broach was removed. The final size 1 high offset Avenir Complete stem was then impacted into place. A ceramic 32 mm head with a 0 neck was then impacted onto the stem and the hip was reduced. Final fluoroscopic images showed anatomic alignment of the hip. The capsule was then closed with #1 Vicryl suture. A dilute betadyne lavage was then done for 3 minutes. The joint was then irrigated with normal saline solution. The fascia was closed with #1 PDS suture. Skin was closed with 2-0 Vicryl, jemal, and a Silverlon dressing. She was then transferred to a hospital bed and taken to the post anesthesia care unit in stable condition. She tolerated the procedure well. Tomi Varghese PA-C, was present for the entire procedure. He was critical for patient positioning, prepping, draping, retraction exposure, wound closure and application of sterile dressing. I attest to the content of the Intraoperative Record and any orders documented therein. Any exceptions are noted below.
--- NOTE | 2022-07-16 11:16 | Fluoroscopy Report ---
FL hip RT 1V CLINICAL HISTORY: RIGHT ANTERIOR HIPright hip arthroplasty COMPARISON STUDY: Acute abdominal series radiographs 05/10/2022 FLUOROSCOPY TIME: 32.8 seconds FLUOROSCOPY IMAGES: 1 EXPOSURE DOSE: 3.90 mGy Air KErma FINDINGS: Satisfactory alignment of the right hip total joint arthroplasty. No acute fracture or unex pected opaque foreign body. Expected postoperative soft tissue swelling with deep tissue air. IMPRESSION: Right hip total joint arthroplasty with expected postoperative changes. ACT 112: Negative or not required by law. Electronically signed by: Donte Hughes M.D. 07/16/2022 11:15 AM
--- NOTE | 2022-07-16 12:04 | XRay Report ---
SINGLE VIEW PELVIS; SINGLE VIEW RIGHT HIP CLINICAL HISTORY: Postoperative examination. FINDINGS: An AP portable view of the hips and pelvis with a crosstable lateral portable view of the r ight hip are obtained. A bipolar right hip arthroplasty is in near-anatomic alignment. At least 2 cor tical lag screws transfix the acetabular cup. No acute fracture is identified. There are expected pos toperative changes overlying the right hip including skin clips, subcutaneous gas, and soft tissue sw elling. Sclerotic change is noted in the sacroiliac joints. Mild degenerative change is cc in the lef t hip. IMPRESSION: Expected postoperative findings status post right hip arthroplasty. No acute fracture is seen. ACT 112: Negative or not required by law. Electronically signed by: Giovanni Ponce M.D. 07/16/2022 12:03 PM
--- NOTE | 2022-07-16 12:10 | Anesthesiology Progress Note ---
Date of Service July 16, 2022 Anesthesia Post Procedure Vital Signs Vital Signs: Temp Pulse Pulse Resp BP Pulse Ox O2 Del Method 07/16/22 12:00 93 H 14 105/55 L 93 Room Air 07/16/22 11:50 36.5 C 97 H 18 101/62 95 Room Air 07/16/22 11:40 98 H 19 92/49 L 93 Room Air 07/16/22 11:30 94 H 22 100/53 L 95 Oxymask 07/16/22 11:20 36.9 C 99 H 27 H 98/59 L 95 Oxymask 07/16/22 07:32 37.1 C 99 H 20 173/96 H 98 Room Air O2 Flow Rate 07/16/22 12:00 07/16/22 11:50 07/16/22 11:40 07/16/22 11:30 6 07/16/22 11:20 9 07/16/22 07:32 Pain Intensity Right Hip: Pain Intensity: 8 Transfer of Care Handoff Completed per policy Notes Mental Status: alert / awake / arousable Patient Amnestic to Procedure: Yes Nausea / Vomiting: adequately controlled Pain: adequately controlled Airway Patency, RR, SpO2: stable & adequate BP & HR: stable & adequate Hydration State: stable & adequate Anesthetic Complications: no major complications apparent
[2022-07-16] MEDS ORDERED: oxyCODONE HCL IR 5 MG TAB (IMMEDIATE RELEASE) PO PRN (13:03)
[2022-07-16] MEDS ORDERED: HYDROmorphone INJ 0.5 MG/0.5 ML SYR IV PRN (13:03)
[2022-07-16] MEDS ORDERED: bisacodyL 10 MG SUPP PR PRN (13:03)
[2022-07-16] MEDS ORDERED: MAGNESIUM HYDROXIDE SUSP 30 ML UDC PO PRN (13:03)
[2022-07-16] MEDS ORDERED: METOCLOPRAMIDE HCL INJ 5 MG/ML 2 ML VIAL IV PRN (13:03)
[2022-07-16] MEDS ORDERED: SODIUM CHLORIDE 0.9% 1000ML 1,000 ML IV SCH (13:03)
[2022-07-16] MEDS ORDERED: NALOXONE HCL 0.4 MG/1 ML VIAL/CARP IV PRN (13:03)
[2022-07-16] MEDS: ACETAMINOPHEN 500 MG TAB PO SCH ×2 (13:43→22:10)
[2022-07-16] MEDS: KETOROLAC TROMETHAMINE 15 MG/ML VIAL IV SCH ×2 (13:44→20:04)
[2022-07-16] MEDS: ceFAZolin 2000MG 2,000 MG/15 ML SYR IV SCH (17:10)
[2022-07-16] MEDS: DOCUSATE SODIUM 100 MG CAP PO SCH (20:05)
[2022-07-16] MEDS: ASPIRIN 81 MG ECTAB PO SCH (20:05)
[2022-07-16] MEDS ORDERED: SENNA 8.6 MG TAB PO SCH (21:00)
[2022-07-17] MEDS: KETOROLAC TROMETHAMINE 15 MG/ML VIAL IV SCH ×2 (01:50→07:43)
[2022-07-17] MEDS: ceFAZolin 2000MG 2,000 MG/15 ML SYR IV SCH (01:50)
--- NOTE | 2022-07-17 05:43 | Orthopedic Progress Note ---
Date of Service July 17, 2022 Assessment & Plan (1) Status post right hip replacement: Overall she is doing well. She is not having much pain in the right hip. She will be seen by physical therapy today for ambulation and range of motion exercises. She is on aspirin for DVT prophylaxis. She can be discharged home later today. She will follow-up with orthopedics in 2 weeks. Shazia Montano was seen and examined at bedside this morning. Overall she is doing fairly well. She is not having much pain in the right hip. She has been up and ambulating to the bathroom. She has no complaints.. Review of Systems All systems reviewed & are unremarkable except as noted in HPI & below. Physical Exam On physical examination of the right hip, the dressing is clean and dry. Her leg is out full extension. She has active dorsiflexion and plantarflexion of her right ankle.. Results & Data Results & Data Laboratory Results . Diagnostic Findings Postoperative x-rays of the right hip show the prosthesis to be in anatomic alignment without any evidence of fracture, education, or loosening. PG Care Time/CCT Total # of Minutes Spent Total Time Spent with Patient: Total time spent is greater than 50% in coordination of care (as documented) at patient's floor/unit and/or counseling patient: Coding Level of Care Code 04302 Post Operative Follow-Up Diagnoses Status post right hip replacement Z96.641
[2022-07-17] MEDS: ACETAMINOPHEN 500 MG TAB PO SCH (05:45)
--- NOTE | 2022-07-17 05:45 | Discharge Summary ---
Date of Service July 17, 2022 Principal Diagnosis Same as "Discharge Diagnosis" noted below under Discharge Instructions. Discharge Exam On physical examination of the right hip, the dressing is clean and dry. Her leg is out full extension. She has active dorsiflexion and plantarflexion of her right ankle.. Discharge Data Procedures Performed Operation Date: 07/16/22 09:30 Actual Procedures p Right Anterior Total Hip Arthroplasty--Uncemented(Right) - Tomi Cook, Ordered Studies 07/16/22 09:30 FL hip RT 1V Routine Hospital Course (1) Status post right hip replacement: On July 16, 2022 Charmaine arrived at [facility] and underwent a right hip replacement without complication. She had a spinal anesthetic. She was initially supposed to be in outpatient joint, however, she was having some mild issues with her pressures during the surgery, and given her age, we felt it would be best to keep her overnight. Postoperatively she was started on aspirin for DVT prophylaxis and transferred to the general orthopedic floors. Her hospital course was uneventful. On postop day #1, her vital signs were stable and her pain was well controlled. She was able to participate well with physical therapy doing ambulation and range of motion exercises. She was then discharged home. She will follow-up with orthopedics in 2 weeks. PG Care Time/CCT Total # of Minutes Spent Total Time Spent with Patient: Total time spent is greater than 50% in coordination of care (as documented) at patient's floor/unit and/or counseling patient: Discharge Plan Discharge Items Patient Disposition: Home - Home Health Services Reason For Visit: Right Hip Degenerative Joint Disease Discharge Diagnosis: Right hip replacement Activity: Per Instructions section Non-emergency contact: Surgeon Call non-emergency contact if: your wound has increased redness and your wound has increased drainage Follow-up/Referrals: [facility] [Outside] (as per surgeon's office) Sharan Pittman MD [Primary Care Provider] - Diet: Regular Addtl Attending Provider Instructions: Activity and Therapy Recommendations: * If you are using [facility] then therapy will be provided at your home until they feel you have accomplished all of your goals. * If you are using [facility] then Physical Therapy will be provided until they feel you are ready to start Outpatient Physical Therapy. * If you are not using home therapy then Outpatient Physical Therapy should start about 3-5 days from your day of surgery. Therapy will last about 6-10 weeks * You were shown a series of exercises in the hospital. Do these exercises three times each day including the exercises you were shown in physical therapy. * Get up and walk several times each day.~ For the first four weeks, try not to stand or walk for more than one hour at a time. If you do stand or walk for more than one hour, you will not hurt anything, but your leg will likely swell.~~ * As you feel comfortable, you may change from the walker or crutches to a cane and~then to independent walking. Medications: * Narcotic You will likely be sent home from the hospital with a prescription for the narcotic pain medication that worked best throughout your stay. * Aspirin Most patients will be required to take Aspirin 81mg twice a day for 6 weeks after surgery. This is obtained [id number] and a prescription is not necessary. * Other medications may be prescribed for specific circumstances. If you have any questions, please call the office at . * Resume previous home medications unless otherwise instructed TEDs/Elastic Stockings: The white elastic stockings help limit swelling and prevent blood clots from forming in your legs. The more you wear them, the more they work. Wear them for six weeks. Dressing Care: Leave the Silverlon dressing in place for 7 days. After 7 days you may remove the dressing. If the incision is not draining then you may leave the jemal open to air. If there is a little bit of drainage or if the jemal are getting stuck on your clothing then cover the incision with a dry dressing. The jemal will be removed at your 2 week follow-up appointment. Showering: You may shower with the Silverlon dressing in place. Do not let the shower spray hit the dressing directly. Pat the Silverlon dressing dry. If the dressing becomes wet underneath, then simply remove the dressing. Keep the incision dry until you are 7 days out from the day of surgery. After 7 days you may remove the Silverlon dressing and shower with the jemal exposed. Let soapy water run over the jemal and pat them dry. Do not scrub or soak the incision. Things To Watch For: * Drainage from the incision site that occurs more than one week after your surgery. * Increased redness at the incision site. * Fever above 102 degrees Fahrenheit. * Unusual chest pain or shortness of breath. * Call [facility] at with any of the above problems Follow-Up Visit: Follow-up with Dr. Cook's PA (Tomi Varghese) 2-3 weeks after your day of surgery. He will remove your jemal and answer any questions. If you have any additional questions or concerns, Dr Cook is usually in the office at the same time and will be available An appointment was probably scheduled when you signed-up for surgery in the office. If you have any questions call Office Instructions: More detailed instructions as well as Frequently Asked Questions were provided in a folder by our office when you signed-up for surgery. Please review these instructions when you get home. If you have any further questions or concerns, please feel free to call the office at [phone] Pending Studies at Discharge: No Stand-Alone Forms: My [facility], Smoking Cessation Medications and DC Order Prescriptions: New aspirin 81 mg Tablet,Delayed Release (Dr/Ec) 81 mg PO BID 42 Days Qty: 84 0RF Continued tramadol 50 mg tablet 50 mg PO Q6H PRN (Reason: pain) Qty: 20 0RF tramadol 50 mg tablet 50 mg PO Q6H PRN (Reason: pain) Qty: 30 0RF nitrofurantoin monohyd/m-cryst [Macrobid] 100 mg capsule 100 mg PO BID 5 Days Qty: 10 0RF Rx Instructions: must administer with a meal/food tramadol 50 mg tablet 50 mg PO Q6H PRN (Reason: pain) Qty: 30 0RF vitamin B complex [B Complex-Vitamin B12] Tablet 1 tab PO QAM PRN (Reason: "when she feels like it") calcium carbonate 600 mg calcium (1,500 mg) tablet 300 mg PO BID cholecalciferol (vitamin D3) 50 mcg (2,000 unit) tablet 1,000 unit PO QAM oxycodone-acetaminophen [Percocet] 5-325 mg tablet 1 tab PO Q6H PRN (Reason: pain) Qty: 30 0RF Admission Data Admit Date/Time: 07/16/22 11:20 Attending Provider: Tomi Cook Admit Provider: Tomi Cook Primary Care Provider: Sharan Pittman
[2022-07-17 06:48] LABS: Basophils # (auto) 0.02 K/uL (0-0.2); Basophils % (auto) 0.2 %; Eosinophils # (auto) 0.01 K/uL (0-0.50); Eosinophils % (auto) 0.1 %; Hematocrit (blood only) 22.2 % (37.0-47.0); Hemoglobin 7.6 g/dl (12.0-16.0); Immature Granulocytes # (auto) 0.03 K/uL (0.01-0.20); Immature Granulocytes % (auto) 0.3 %; Lymphocytes # (auto) 1.28 K/uL (1.2-3.4); Lymphocytes % (auto) 13.5 %; Mean Corpuscular Hemoglobin 31.5 pg (25.0-34.0); Mean Corpuscular Hgb Conc 34.2 g/dL (32.0-36.0); Mean Corpuscular Volume 92.1 fL (80.0-100.0); Mean Platelet Volume 9.5 fL (9.4-12.4); Monocytes % (auto) 11.6 %; Neutrophils # (auto) 7.05 K/uL (1.40-6.50); Neutrophils % (auto) 74.3 %; Platelet Count 156 K/uL (130-400); RDW Coefficient of Variation 11.6 % (11.5-14.5); RDW Standard Deviation 39.3 fL (36.4-46.3); Red Blood Count 2.41 M/uL (4.20-5.40); White Blood Count 9.49 K/ul (4.8-10.8)
[2022-07-17 07:12] LABS: BUN Creatinine Ratio 27.7 (10-20); Calcium 8.1 mg/dl (8.6-10.3); Creatinine Clr Calc Pharmacy 47.5 ml/min; Est GFR (African American) 77.7 ml/min; Est GFR (Non-African American) 67.1 ml/min; Potassium 3.1 mmol/L (3.5-5.1)
[2022-07-17 07:25] LABS: RBC Morphology Unremarkable
[2022-07-17] MEDS: DOCUSATE SODIUM 100 MG CAP PO SCH (07:44)
[2022-07-17] MEDS: ASPIRIN 81 MG ECTAB PO SCH (07:44)
[2022-07-17] MEDS ORDERED: dexAMETHasone 4 MG TAB PO SCH (08:00)
[2022-07-17] MEDS ORDERED: MULTIVITAMIN TAB PO SCH (09:00)
== END 2022-07-17 11:15 | disposition home health service (06) ==
LOC: ASU 06:50 → 3E 06:50

== ENCOUNTER 2024-08-14 11:29 | Observation (INO) ==
[2024-08-14 11:59] LABS: Basophils # (auto) 0.03 K/uL (0.00-0.20); Basophils % (auto) 0.8 %; Eosinophils # (auto) 0.07 K/uL (0.00-0.50); Eosinophils % (auto) 1.9 %; Hematocrit (blood only) 38.1 % (37.0-47.0); Hemoglobin 12.8 g/dl (12.0-16.0); Immature Granulocytes # (auto) 0.01 K/uL (0.01-0.20); Immature Granulocytes % (auto) 0.3 %; Lymphocytes # (auto) 0.94 K/uL (1.20-3.40); Lymphocytes % (auto) 26.1 %; Mean Corpuscular Hemoglobin 31.8 pg (25.0-34.0); Mean Corpuscular Hgb Conc 33.6 g/dL (32.0-36.0); Mean Corpuscular Volume 94.5 fL (80.0-100.0); Mean Platelet Volume 9.9 fL (9.4-12.4); Monocytes % (auto) 8.3 %; Neutrophils # (auto) 2.25 K/uL (1.40-6.50); Neutrophils % (auto) 62.6 %; Platelet Count 127 K/uL (130-400); RDW Coefficient of Variation 11.9 % (11.5-14.5); RDW Standard Deviation 41.7 fL (36.4-46.3); Red Blood Count 4.03 M/uL (4.20-5.40)
[2024-08-14 12:17] LABS: Albumin Globulin Ratio 1.2 (0.9-2); Albumin Level 4.4 gm/dl (3.4-5.0); Bilirubin,Total 0.7 mg/dl (0.2-1.0); Calcium 9.1 mg/dl (8.6-10.3); Creatinine Clr Calc Pharmacy 31.8 ml/min; Globulin 3.7 gm/dl (2.5-4.0); Potassium 3.9 mmol/L (3.5-5.1); Total Protein 8.1 gm/dl (6.0-8.3)
[2024-08-14 12:27] LABS: Appearance Urine Clear (Clear); Bilirubin Urine Negative (Negative); Blood Urine Negative (Negative); Color Urine Yellow; Glucose Urine UA Negative (Negative); Ketones Urine Negative (Negative); Leukocyte Esterase Urine Negative (Negative); Nitrite Urine Negative (Negative); Protein Urine Negative (Negative); Specific Gravity Urine 1.005 (1.000-1.030); Urobilinogen Urine Negative (Negative)
[2024-08-14 12:35] LABS: INR 0.9 (0.9-1.1); Partial Thromboplastin Ratio 0.9; Partial Thromboplastin Time 24 Seconds (21-31); Prothrombin Time 10.2 Seconds (9.0-12.0)
--- NOTE | 2024-08-14 12:50 | Emergency Department Note ---
Impression & Plan Facial numbness, Stroke-like symptoms ED Provider Note NAME: NADER GUILLORY AGE: 79 SEX: F : 1945 ARRIVES VIA: Walk-In INFORMANT: [Patient] ED PROVIDER(S): [Giovanni Choudhury MD] CHIEF COMPLAINT: Ragsdale's palsy symptoms HISTORY OF PRESENT ILLNESS: Patient is an 79-year-old female who states that last night at 3 AM, 10 and half hours ago, she awoke and seemed fine. This morning at 7 AM, 6 and half hours ago she awoke and her right eye was tearing and she had some right facial numbness near the corner of her mouth. She has not noticed anything else although, her symptoms are persisting. There has been no arm or leg weakness, no real headache, no difficulty with thinking or speech. She is on medication for Waldenstrm's macroglobulinemia. She has been on this now for about a month. She wonders if the medication is causing the symptoms. She also wondered if she might have Ragsdale's palsy. She does not take any blood thinning agents. She has never had a TIA or CVA. PMHx/PSHx/Social Hx: See Below PHYSICAL EXAM: GENERAL: Patient is in no acute distress. HEENT: No acute trauma, normocephalic atraumatic, mucous membranes moist, no nasal congestion. NECK: No stridor, no adenopathy, no meningismus, trachea is midline. LUNGS: Clear to auscultation bilaterally, no wheeze, no rhonchi, breath sounds equal. HEART: Without murmurs gallops or rubs, regular rate and rhythm. ABDOMEN: Soft, nontender, no peritonitis. EXTREMITIES: No cyanosis, full range of motion of all the joints without pain or difficulty. NEUROLOGIC: Oriented x 3. The patient does have a very subtle right facial droop when speaking that seems to resolve when asked to smile. There is no extremity drift, speech slur or cerebellar dysfunction. SKIN: No jaundice, no diaphoresis. DIFFERENTIAL DIAGNOSIS: Stroke, TIA, incomplete Ragsdale's palsy, electrolyte imbalance, intracranial bleeding, among others. EMERGENCY DEPARTMENT PROCEDURES: MEDICAL DECISION MAKING: There is no leukocytosis, in fact, the white count is slightly low at 3.6. There was a normal hemoglobin. Platelet count somewhat low at 127. No coagulopathy. Creatinine was very mildly elevated, this has been seen in the past. No electrolyte abnormality in need of emergent correction. No concerning liver enzyme elevation. Urinalysis did not show findings of infection. Lyme disease testing was negative. ECG showed a sinus rhythm, no dysrhythmia. Brain CT showed no acute bleed or mass effect. CT angio of the head and neck were performed, there was no significant stenosis or clot. On exam, the patient had a very subtle right facial droop with speaking, she complained of right facial numbness. No extremity deficits. No speech slur. I did have a stroke alert called. I did speak with the [facility] stroke neurologist. There is no indication for TNK--the patient is out of the TNK window and her stroke finding are extremely subtle. The patient should be hospitalized for a complete stroke workup. I spoke with the patient, I did speak with case management, the on-call hospitalist was consulted. Prior/Outside records/notes reviewed: None ECG per my interpretation: Indication was possible stroke. The ECG shows a sinus rhythm with some PACs. The rate is 86. There is no ST elevation, no PVCs. The QTc is 430. Continuous Cardiac Monitoring per my interpretation: An order was placed for continuous cardiac monitoring. The monitor shows a rate of 82 with sinus rhythm and PACs Imaging/x-ray results per my interpretation: Chronic Medical/Social conditions affecting care: Advanced age. Care/Management discussed with: [facility] stroke neurology-Dr. Andrade. Case management and the on-call hospitalist. Level of care consideration(s): After review of the information above and other included data: --I believe the patient requires escalation of care to admission Critical Care Note: I have personally spent 49 minutes of critical care time in the direct management of this patient. This includes bedside care, interpretation of diagnostic studies, and testing, discussion with consultants, patient, and family members, and other required patient management activities. This 49 minutes is in excess of all separately billable procedures. DISPOSITION: Admission Past Med/Surg History Problem List (Updated 08/14/24 @ 13:45 by Giovanni Choudhury MD) Stroke-like symptoms (Acute) Facial numbness (Acute) Vaginal bleeding Fissure of genital labium Recurrent UTI Ganglion, right wrist Constipation Strain of quadriceps tendon Metatarsalgia of left foot Greater trochanteric bursitis of right hip Osteoarthritis of left knee Hydronephrosis Routine gynecological examination UPJ obstruction, acquired Hypokalemia Extrarenal pelvis Urinary symptom or sign Dry mouth Mouth sore Umbilical hernia Lichen sclerosus et atrophicus of the vulva Back pain due to inflammatory process Encounter for pre-operative examination Palpitations Leukopenia HX Bakers cyst (Acute) Arthritis Personal hx-rectal/anal malignancy Diagnosed 1991- s/p surgery S/P colostomy Parastomal hernia Stable Osteoporosis Lichen simplex chronicus Possible lichen sclerosis - follows with derm Stable IgA deficiency, selective Under observation x 6 years ([facility]) Atrial premature complex Occasionally symptomatic- "mild" > no cardio Medical History Parastomal hernia Osteoporosis Lichen simplex chronicus Leukopenia IgA deficiency, selective Encounter for screening for lipoid disorders Encounter for routine gynecological examination with Papanicolaou smear of cervix Encounter for gynecologic examination for high-risk patient covered by Medicare Dermatofibroma Bakers cyst Atrial premature complex Arthritis Vitamin D deficiency Seborrheic keratosis Sebaceous cyst Raynaud's disease Premature ventricular contractions Open comedone Neoplasm of uncertain behavior of skin Mineral deficiency Lumbago Lichen sclerosus et atrophicus Joint pain, knee Hyperplastic colon polyp History of actinic keratoses Fissure in skin Fever Cough Cole angioma Breast pain Angioma Acute upper respiratory infection Acneiform eruption Abnormal blood chemistry Waldenstrom macroglobulinemia to have follow up on 07/31/23 to see if treatments are needed Cellulitis of hand resolved Sinus infection History of blood transfusion Post-op bowel surgery Hematuria resolved History of rectal cancer 1991 > surgery Colostomy in place No current issues Monoclonal gammopathy Under observation Surgical History Status post right hip replacement (~07/2022) Status post left knee replacement History of anesthesia complications Status post right knee replacement Nausea and vomiting after administration of anesthetic agent History of section History of elbow surgery History of colonoscopy with polypectomy History of colectomy History of wisdom tooth extraction H/O total cystectomy Status post laser cataract surgery of both eyes S/P tonsillectomy S/P hysterectomy Family History Mother Alzheimer disease Grandmother (Maternal) Diabetes Father Hypertension Stroke Other No family history of adverse response to anesthesia Denies family history of Ovarian cancer Prostate cancer Myocardial infarction Breast cancer Social History Smoking Status: Never smoker Second Hand Exposure: No; Do You Dip or Chew Tobacco: No; Hx Alcohol Use: Yes Alcohol type: wine and hard liquor Hx Substance Use: No Preferred Language: Frisian Communication Ability: Effective Visual Impairment: No Limitations Hearing Ability: Normal Manager Core Required: No Beliefs That Will Affect Care: None marital status: Current Living Situation: Spouse current occupational status: retired How many Children do You have: 1 How many Children do You have Comment: 3 girls Feels Safe at Home: Yes Childhood Exposure to Second-Hand Smoke: No Diet: regular during the past year weight has: remained stable Dental Care, Regularly: Yes Physical Activity Frequency: 5-6 Times per Week Seatbelt Use: always Sunscreen Use: Yes Assistive Devices: None Allergies Allergies Allergy/AdvReac Type Severity Reaction Status Date / Time amoxicillin AdvReac Mild Loose Verified 07/02/24 09:24 stools clavulanic acid AdvReac Mild Loose Verified 07/02/24 09:24 stools Home Meds Home Medications Medication Instructions Recorded Confirmed calcium carbonate 300 mg PO BID 06/29/19 08/14/24 cholecalciferol (vitamin D3) 50 1,000 unit PO QAM 06/29/19 08/14/24 mcg (2,000 unit) tablet triamcinolone acetonide 0.1 % 1 applic topical DIRECTED PRN 06/24/24 08/14/24 topical ointment Other zanubrutinib 80 mg capsule 160 mg PO BID 06/24/24 08/14/24 (Brukinsa) celecoxib 200 mg capsule 200 mg PO BID 08/14/24 08/14/24 meclizine 25 mg tablet 25 mg PO UD PRN dizziness 08/14/24 08/14/24 Results & Data (ED) Vital Signs Vital Signs - 24 hr 08/14/24 11:35 08/14/24 12:18 08/14/24 12:32 Temperature 36.5 C Temperature Source Oral Pulse Rate 76 70 Pulse Rate [Apical] 82 Pulse Rhythm Regular Pulse Rhythm [Apical] Regular Pulse Strength Normal Pulse Strength [Apical] Normal Respiratory Rate 18 20 Respiratory Effort / Characteristics Non-Labored Spontaneous Non-Labored Spontaneous Respiratory Depth Normal Normal Respiratory Pattern Regular Regular Blood Pressure 170/95 H Blood Pressure [Left Arm] Blood Pressure [Right Arm] 191/86 H Blood Pressure Mean 120 Blood Pressure Mean [Left Arm] Blood Pressure Mean [Right Arm] 121 Blood Pressure Position Sitting Blood Pressure Position [Left Arm] Blood Pressure Position [Right Arm] Lying Pulse Oximetry 98 98 Oxygen Delivery Method Room Air Sepsis Recent Fever Within 48 Hours No Sepsis New/Unexplained Change in Mental Status No Sepsis Action Taken by Nursing No Action Required 08/14/24 13:06 Temperature Temperature Source Pulse Rate Pulse Rate [Apical] Pulse Rhythm Pulse Rhythm [Apical] Pulse Strength Pulse Strength [Apical] Respiratory Rate Respiratory Effort / Characteristics Respiratory Depth Respiratory Pattern Blood Pressure Blood Pressure [Left Arm] 200/93 H Blood Pressure [Right Arm] 189/102 H Blood Pressure Mean Blood Pressure Mean [Left Arm] 128 Blood Pressure Mean [Right Arm] 131 Blood Pressure Position Blood Pressure Position [Left Arm] Lying Blood Pressure Position [Right Arm] Lying Pulse Oximetry Oxygen Delivery Method Sepsis Recent Fever Within 48 Hours Sepsis New/Unexplained Change in Mental Status Sepsis Action Taken by Custodial Medications Current Medication List: was personally reviewed by me Laboratory Data Attestation: I reviewed the patient's lab results. 08/14/24 11:45 08/14/24 11:45 Lab Results 08/14/24 08/14/24 Range/Units 11:45 11:51 WBC 3.60 L (4.8-10.8) K/ul RBC 4.03 L (4.20-5.40) M/uL Hgb 12.8 (12.0-16.0) g/dl Hct 38.1 (37.0-47.0) % MCV 94.5 (80.0-100.0) fL MCH 31.8 (25.0-34.0) pg MCHC 33.6 (32.0-36.0) g/dL RDW Std Deviation 41.7 (36.4-46.3) fL RDW Coeff of Amanda 11.9 (11.5-14.5) % Plt Count 127 L (130-400) K/uL MPV 9.9 (9.4-12.4) fL Immature Gran % (Auto) 0.3 % Neut % (Auto) 62.6 % Lymph % (Auto) 26.1 % [place] % (Auto) 8.3 % Eos % (Auto) 1.9 % Baso % (Auto) 0.8 % Neut # (Auto) 2.25 (1.40-6.50) K/uL Lymph # (Auto) 0.94 L (1.20-3.40) K/uL [place] # (Auto) 0.30 (0.11-0.59) K/uL Eos # (Auto) 0.07 (0.00-0.50) K/uL Baso # (Auto) 0.03 (0.00-0.20) K/uL Immature Gran # (Auto) 0.01 (0.01-0.20) K/uL PT 10.2 (9.0-12.0) Seconds INR 0.9 (0.9-1.1) APTT 24 (21-31) Seconds PTT Ratio 0.9 Sodium 139 (136-145) mmol/L Potassium 3.9 (3.5-5.1) mmol/L Chloride 103 (98-107) mmol/L Carbon Dioxide 29 (21-32) mmol/L Anion Gap 7 (3-11) BUN 19 (6-23) mg/dl Creatinine 1.27 H (0.6-1.2) mg/dl Est Cr Clr Drug Dosing 31.8 ml/min eGFR 42.49 BUN/Creatinine Ratio 15.0 (10-20) Glucose 102 H (70-99(Fasting)) mg/dl Calcium 9.1 (8.6-10.3) mg/dl Total Bilirubin 0.7 (0.2-1.0) mg/dl AST 28 (13-39) U/L ALT 24 (7-52) U/L Alkaline Phosphatase 132 H (34-104) U/L Total Protein 8.1 (6.0-8.3) gm/dl Albumin 4.4 (3.4-5.0) gm/dl Globulin 3.7 (2.5-4.0) gm/dl Albumin/Globulin Ratio 1.2 (0.9-2) Urine Color Yellow Urine Appearance Clear (Clear) Urine pH 7.0 (4.5-7.5) Ur Specific [place] 1.005 (1.000-1.030) Urine Protein Negative (Negative) Urine Glucose (UA) Negative (Negative) Urine Ketones Negative (Negative) Urine Blood Negative (Negative) Urine Nitrite Negative (Negative) Urine Bilirubin Negative (Negative) Urine Urobilinogen Negative (Negative) Ur Leukocyte Esterase Negative (Negative) Lyme Disease Screen Negative (Negative) Administered Medications Discontinued Medications Ioversol (Optiray 320 125ml) 100 ml IV ONCE ONE Stop: 08/14/24 12:52 Last Admin: 08/14/24 12:51 Dose: 100 ml Documented By: JAR Imaging Data Radiologist's Impression: Head CT 08/14/24 12:41 CT SCAN OF THE BRAIN WITHOUT IV CONTRAST CLINICAL HISTORY: Stroke alert. Right facial numbness. COMPARISON STUDY: None. TECHNIQUE: Unenhanced axial CT scan of the brain was performed from the vertex to the skull base. A dose lowering technique was utilized adhering to the principles of ALARA. FINDINGS: Brain parenchyma: No acute intracranial hemorrhage, midline shift or mass effect is present. [place]-white matter differentiation is preserved. There are no extra- axial fluid collections. There are no findings to suggest acute dural sinus thrombosis or acute territorial infarct. 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 White matter hypodensities are suggestive of small vessel disease. Ventricles, sulci, cisterns: There is no hydrocephalus. The basal cisterns are patent. Calvarium: Unremarkable. Sinuses and mastoids: The visualized paranasal sinuses are clear. The mastoid air cells are well pneumatized. Orbits: The bony orbits are grossly intact. IMPRESSION: No acute intracranial findings. ACT 112: Negative or not required by law. Electronically signed by: Hunter Velasco M.D. 08/14/2024 1:00 PM Head CTA 08/14/24 12:41 CT angio head w con CLINICAL HISTORY: stroke. COMPARISON STUDY: None TECHNIQUE: Unenhanced axial CT scan of the brain is performed. Subsequently, following the IV administration of 100 cc of Optiray, CT angiogram of the brain was performed from the skull base to the vertex. Images are reviewed in the axial, sagittal, and coronal planes. 3-D MIPS images are created and assessed. IV contrast was administered without complication. All measurements were obtained according to NASCET criteria. A dose lowering technique was utilized adhering to the principles of ALARA. CT DOSE: 886 FINDINGS: Distal internal carotid and vertebral arteries show no significant narrowing or occlusion. Basilar artery is widely patent. The anterior, middle, and posterior cerebral arteries are patent bilaterally. There is a mildly prominent vein overlying the left cerebral hemisphere. Cerebral venous sinuses opacify normally. IMPRESSION: No arterial narrowing or occlusion seen at the brain. ACT 112: Negative or not required by law. The above report was generated using voice recognition software. It may contain grammatical, syntax or spelling errors. Electronically signed by: Neftali Pennington M.D. 08/14/2024 1:08 PM Neck CTA 08/14/24 12:41 CT ANGIOGRAPHY OF THE NECK WITH CONTRAST CLINICAL HISTORY: Stroke. Right facial numbness. COMPARISON STUDY: No previous studies for comparison. Technique: CT angiography of the carotid and vertebral arteries was obtained using Optiray and 3D reconstruction on an independent workstation. NASCET criteria was utilized. Automated exposure control was utilized for the study. A dose lowering technique was utilized adhering to the principles of ALARA. CT DOSE: 886.13 mGy.cm Findings: Visualized portions of the lung apices are unremarkable. There is no cervical lymphadenopathy or cervical spine fracture. The bilateral common carotid, cervical internal carotid and vertebral arteries are patent. No stenosis, dissection or aneurysm is identified. IMPRESSION: Unremarkable CTA of the neck. ACT 112: Negative or not required by law. Electronically signed by: Hunter Velasco M.D. 08/14/2024 1:03 PM Discharge Plan Visit Data Chief Complaint: Ragsdale's Palsy Symptoms Stated Complaint: NUMB CHEEK ED Provider: Giovanni Choudhury Discharge Problem: Facial numbness, Stroke-like symptoms Patient Disposition: Admitted As Inpatient Condition: Fair Forms Stand Alone Forms: [facility], Important Visit Information Prescriptions Prescriptions: No Action calcium carbonate 600 mg calcium (1,500 mg) tablet 300 mg PO BID cholecalciferol (vitamin D3) 50 mcg (2,000 unit) tablet 1,000 unit PO QAM triamcinolone acetonide 0.1 % ointment 1 applic topical DIRECTED PRN (Reason: Other) Brukinsa 80 mg capsule 160 mg PO BID celecoxib 200 mg capsule 200 mg PO BID meclizine 25 mg tablet 25 mg PO UD PRN (Reason: dizziness) Rx Instructions: PO .TAKE 1/2 TO 1 TABLET EVERY 6 HOURS NEEDED FOR DIZZINESS. PRN; Referrals Referrals: ProSharan MD [Primary Care Provider] -
[2024-08-14] MEDS: OPTIRAY 320 125ml IV ONE (12:51)
--- NOTE | 2024-08-14 13:02 | CT Scan Report ---
CT SCAN OF THE BRAIN WITHOUT IV CONTRAST CLINICAL HISTORY: Stroke alert. Right facial numbness. COMPARISON STUDY: None. TECHNIQUE: Unenhanced axial CT scan of the brain was performed from the vertex to the skull base. A dose lowering technique was utilized adhering to the principles of ALARA. FINDINGS: Brain parenchyma: No acute intracranial hemorrhage, midline shift or mass effect is present. Kirkland-whi te matter differentiation is preserved. There are no extra-axial fluid collections. There are no find ings to suggest acute dural sinus thrombosis or acute territorial infarct. 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 White matter hypodensities are suggestive o f small vessel disease. Ventricles, sulci, cisterns: There is no hydrocephalus. The basal cisterns are patent. Calvarium: Unremarkable. Sinuses and mastoids: The visualized paranasal sinuses are clear. The mastoid air cells are well pneu matized. Orbits: The bony orbits are grossly intact. IMPRESSION: No acute intracranial findings. ACT 112: Negative or not required by law. Electronically signed by: Hunter Velasco M.D. 08/14/2024 1:00 PM
--- NOTE | 2024-08-14 13:04 | CT Scan Report ---
CT ANGIOGRAPHY OF THE NECK WITH CONTRAST CLINICAL HISTORY: Stroke. Right facial numbness. COMPARISON STUDY: No previous studies for comparison. Technique: CT angiography of the carotid and vertebral arteries was obtained using Optiray and 3D rec onstruction on an independent workstation. NASCET criteria was utilized. Automated exposure control was utilized for the study. A dose lowering technique was utilized adhering to the principles of ALA RA. CT DOSE: 886.13 mGy.cm Findings: Visualized portions of the lung apices are unremarkable. There is no cervical lymphadenopat hy or cervical spine fracture. The bilateral common carotid, cervical internal carotid and vertebral arteries are patent. No stenosis, dissection or aneurysm is identified. IMPRESSION: Unremarkable CTA of the neck. ACT 112: Negative or not required by law. Electronically signed by: Hunter Velasco M.D. 08/14/2024 1:03 PM
--- NOTE | 2024-08-14 13:09 | CT Scan Report ---
CT angio head w con CLINICAL HISTORY: stroke. COMPARISON STUDY: None TECHNIQUE: Unenhanced axial CT scan of the brain is performed. Subsequently, following the IV adminis tration of 100 cc of Optiray, CT angiogram of the brain was performed from the skull base to the vert ex. Images are reviewed in the axial, sagittal, and coronal planes. 3-D MIPS images are created and a ssessed. IV contrast was administered without complication. All measurements were obtained according to NASCET criteria. A dose lowering technique was utilized adhering to the principles of ALARA. CT DOSE: 886 FINDINGS: Distal internal carotid and vertebral arteries show no significant narrowing or occlusion. Basilar artery is widely patent. The anterior, middle, and posterior cerebral arteries are patent meri aterally. There is a mildly prominent vein overlying the left cerebral hemisphere. Cerebral venous si nuses opacify normally. IMPRESSION: No arterial narrowing or occlusion seen at the brain. ACT 112: Negative or not required by law. The above report was generated using voice recognition software. It may contain grammatical, syntax o r spelling errors. Electronically signed by: Neftali Pennington M.D. 08/14/2024 1:08 PM
--- NOTE | 2024-08-14 13:21 | History & Physical Report ---
Date of Service August 14, 2024 Assessment & Plan (1) Facial numbness: (2) Hypertension: (3) Waldenstrom macroglobulinemia: Eduardo Montano is a 79F with a PMHx of rectal cancer s/p colostomy, Waldenstrom's macroglobulinemia, and osteoporosis who presents with facial numbness starting morning of arrival. Last known well 3AM 08/14. [facility] Alert called in the ED, teleneurology doc recommended admission for standard stroke workup. Initial evaluation includes head CT, Head and Neck CTA without acute findings. Admitted for further stroke workup. #Facial Numbness - Stroke Vs Ragsdale's Palsy Head CT/Head and Neck CTA without acute findings Brain MRI ordered Echo Ordered Check AM Lipids & A1c PT/OT not ordered on admission - pt ambulating without issue. ASA 324 given, 81mg qAM ordered #Hypertension Persistent elevations in the ED, not on meds at home. Reports has been increasing recently but mainly 140s systolic Manual BP 188/78 - will continue to monitor while in the time frame for permissive HTN, if continues to be elevated consider starting PO options Denies OTC cold product use #Waldenstrom's Macroglobulinemia follows with Dr. Deleon Continue Zanubrutinib - ragsdale's palsy or hypercoagulable state NOT listed as common adverse effects Thrombocytopenia and leukopenia likely results of this # hx of rectal CA Ostomy in place - ostomy care q shift Dispo: obs to med/tele DVT proh: lovenox CODE STATUS: full code updated at bedside 08/14 History of Present Illness Chief Complaint: stroke like symptoms Primary Care Provider: Sharan Pittman MD Charmaine is a 79F with a PMHx of rectal cancer s/p colostomy, Waldenstrom's macroglobulinemia, and osteoporosis who presents with facial numbness. Woke up at 3 am and felt fine, went back to bed. Woke up again at around 7 with a tearing sensation in her right eye and numbness around the right side of her mouth. No difficulty swallowing. No hx of CVa/TIA or blood clot. Feeling her normal self. No recent cough/cold symptoms. Does report hx of PVCs but denies afib hx. States BP has been higher, 140s systolic. That 200s is quite abnormal for her. [facility] neurology -- not TNK, MRI and echo - standard stroke workup Allergies Allergy/AdvReac Type Severity Reaction Status Date / Time amoxicillin AdvReac Mild Loose Verified 07/02/24 09:24 stools clavulanic acid AdvReac Mild Loose Verified 07/02/24 09:24 stools Home Medications Medication Instructions Recorded Confirmed Type calcium carbonate 300 mg PO BID 06/29/19 08/14/24 History cholecalciferol (vitamin D3) 50 1,000 unit PO QAM 06/29/19 08/14/24 History mcg (2,000 unit) tablet triamcinolone acetonide 0.1 % 1 applic topical DIRECTED PRN 06/24/24 08/14/24 History topical ointment Other zanubrutinib 80 mg capsule 160 mg PO BID 06/24/24 08/14/24 History (Brukinsa) celecoxib 200 mg capsule 200 mg PO BID 08/14/24 08/14/24 History meclizine 25 mg tablet 25 mg PO UD PRN dizziness 08/14/24 08/14/24 History Past Med/Surg History Problem List (Updated 08/14/24 @ 14:09 by Eloisa Peña PA-C) Hypertension Stroke-like symptoms (Acute) Facial numbness (Acute) Vaginal bleeding Fissure of genital labium Recurrent UTI Ganglion, right wrist Constipation Strain of quadriceps tendon Metatarsalgia of left foot Greater trochanteric bursitis of right hip Osteoarthritis of left knee Hydronephrosis Routine gynecological examination UPJ obstruction, acquired Hypokalemia Extrarenal pelvis Urinary symptom or sign Dry mouth Mouth sore Umbilical hernia Lichen sclerosus et atrophicus of the vulva Back pain due to inflammatory process Encounter for pre-operative examination Palpitations Leukopenia HX Bakers cyst (Acute) Arthritis Personal hx-rectal/anal malignancy Diagnosed 1991- s/p surgery S/P colostomy Parastomal hernia Stable Osteoporosis Lichen simplex chronicus Possible lichen sclerosis - follows with derm Stable IgA deficiency, selective Under observation x 6 years ([facility]) Atrial premature complex Occasionally symptomatic- "mild" > no cardio Medical History Parastomal hernia Osteoporosis Lichen simplex chronicus Leukopenia IgA deficiency, selective Encounter for screening for lipoid disorders Encounter for routine gynecological examination with Papanicolaou smear of cervix Encounter for gynecologic examination for high-risk patient covered by Medicare Dermatofibroma Bakers cyst Atrial premature complex Arthritis Vitamin D deficiency Seborrheic keratosis Sebaceous cyst Raynaud's disease Premature ventricular contractions Open comedone Neoplasm of uncertain behavior of skin Mineral deficiency Lumbago Lichen sclerosus et atrophicus Joint pain, knee Hyperplastic colon polyp History of actinic keratoses Fissure in skin Fever Cough Cole angioma Breast pain Angioma Acute upper respiratory infection Acneiform eruption Abnormal blood chemistry Waldenstrom macroglobulinemia to have follow up on 07/31/23 to see if treatments are needed Cellulitis of hand resolved Sinus infection History of blood transfusion Post-op bowel surgery Hematuria resolved History of rectal cancer 1991 > surgery Colostomy in place No current issues Monoclonal gammopathy Under observation Surgical History Status post right hip replacement (~07/2022) Status post left knee replacement History of anesthesia complications Status post right knee replacement Nausea and vomiting after administration of anesthetic agent History of section History of elbow surgery History of colonoscopy with polypectomy History of colectomy History of wisdom tooth extraction H/O total cystectomy Status post laser cataract surgery of both eyes S/P tonsillectomy S/P hysterectomy Family History Mother Alzheimer disease Grandmother (Maternal) Diabetes Father Hypertension Stroke Other No family history of adverse response to anesthesia Denies family history of Ovarian cancer Prostate cancer Myocardial infarction Breast cancer Social History Smoking Status: Never smoker Second Hand Exposure: No; Do You Dip or Chew Tobacco: No; Hx Alcohol Use: Yes Alcohol type: wine and hard liquor Hx Substance Use: No Preferred Language: Italian Communication Ability: Effective Visual Impairment: No Limitations Hearing Ability: Normal Braille Operator Required: No Beliefs That Will Affect Care: None marital status: Current Living Situation: Spouse current occupational status: retired How many Children do You have: 1 How many Children do You have Comment: 3 girls Feels Safe at Home: Yes Childhood Exposure to Second-Hand Smoke: No Diet: regular during the past year weight has: remained stable Dental Care, Regularly: Yes Physical Activity Frequency: 5-6 Times per Week Seatbelt Use: always Sunscreen Use: Yes Assistive Devices: None Review of Systems Review of Systems: All systems reviewed & are unremarkable except as noted in Subjective Physical Exam Physical Exam: General: NAD, VS as above Resp: normal respiratory effort, lungs clear to auscultation CV: RRR, no murmur, Abd: normal bowel sounds, + ostomy Extremities: Moves all extremities, no edema Neuro: A&O x3, right sided facial droop while talking, but this resolves with smiling. No tounge deviation. UE and LE strength equal and intact. Results & Data Results & Data Vital Signs (Past 12 Hours) Vital Signs Temp Pulse Pulse Resp BP BP BP 08/14/24 13:06 200/93 H 189/102 H 08/14/24 12:32 82 20 191/86 H 08/14/24 12:18 70 08/14/24 11:35 97.7 F 76 18 170/95 H Pulse Ox O2 Del Method 08/14/24 13:06 08/14/24 12:32 98 Room Air 08/14/24 12:18 08/14/24 11:35 98 Laboratory Results cbc and chemistry reviewed UA reviewed lyme disease reviewed Diagnostic Findings head and neck CTA head ct Supervising Physician Co-Signing Physician Notes Patient seen and examined, chart reviewed, case discussed with Eloisa Peña PA-C and I agree with the assessment and plan as above except as otherwise noted Labs and images reviewed Charmaine is an 79yo F who woke up at 7am with a tearing sensation an dnumbness on the lip/cheek. Evaluated as a stroke alert. She was not a TNK candidate due to duration of symptoms. DDx includes [place]. CTA-H/C, CT-H without acute findings. MRI pending. At bedside she reports she feels okay about the same as earlier continues to have some tingling and sensation change in the right side of her cheek. Cheek puff is intact is able to raise eyebrows. No vision change. BP elevated. Not on antihypertensives as outpt, typically 140s. Will allow for permissive HTN until MRI r/o stroke. If no CVA then will add labetelol PRN and losartan due to BP above goal as outpatient. WIll give asa 324mg 2/2 CVA within differential. If MRI negative --> can tx with pred 60mg Agree with DVT PPx with Lovenox Agree w/ above PG Care Time/CCT Total # of Minutes Spent Total Time Spent with Patient: Total time spent is greater than 50% in coordination of care (as documented) at patient's floor/unit and/or counseling patient: Coding Level of Care Code 68620 INT INP/OBS CARE 3/75MIN Diagnoses Facial numbness R20.0 Hypertension I10 Waldenstrom macroglobulinemia C88.0
[2024-08-14] MEDS: ASPIRIN 81 MG CHEW PO STA (15:10)
--- NOTE | 2024-08-14 16:42 | Magnetic Resonance Report ---
Clinical History: Facial numbness. Ragsdale's palsy Technique: Multiple T1 and T2-weighted magnetic resonance images were obtained of the brain without gadolinium contrast Findings: There is no sign of acute or old infarction with normal-appearing diffusion weighted images. There is cerebral atrophy, within expected limits for the patient's age. There are focal and confluent areas of increased T2 signal intensity within the periventricular white matter of the cerebral hemispheres bilaterally. This is most likely due to chronic small vessel ischemic disease. 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 There is no intracranial hemorrhage or other fluid collection. No midline shift or other form of herniation is seen. There is no hydrocephalus. Normal flow-voids are seen within the arteries of the [id number]-Ydfghe. The orbits appear unremarkable. There is mild mucosal thickening in the right maxillary sinus. The mastoid air cells appear clear. Impression: 1. Cerebral atrophy and chronic small vessel ischemic disease 2. 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 No sign of acute infarct or mass lesion 4. Mild chronic sinusitis ACT 112: Positive. There are findings on this exam that require communication between the performing entity and the patient following Patient Test Result Information Act ([place] ACT 112) guidelines. Electronically signed by Dario Marley 08-14-2024 4:40 PM
[2024-08-14] MEDS ORDERED: POLYETHYLENE (MIRALAX) 17 GM PACK PO PRN (16:44)
[2024-08-14] MEDS ORDERED: MECLIZINE 12.5 MG TAB PO PRN (16:44)
[2024-08-14] MEDS ORDERED: PHARMACIST DISCHARGE MED REC CONSULT PRN (16:44)
[2024-08-14] MEDS ORDERED: ACETAMINOPHEN 325 MG TAB PO PRN (16:44)
[2024-08-14] MEDS: MELATONIN 3 MG TAB PO PRN (20:51)
[2024-08-14] MEDS: CeleBREX 200 MG CAP PO SCH (20:51)
--- NOTE | 2024-08-14 22:20 | Electrocardiogram Report ---
Test Reason : Blood Pressure : */* mmHG Vent. Rate : 86 BPM Atrial Rate : 86 BPM P-R Int : 132 ms QRS Dur : 92 ms QT Int : 360 ms P-R-T Axes : 23 -17 45 degrees QTcB Int : 430 ms Sinus rhythm with Premature supraventricular complexes Otherwise normal ECG When compared with ECG of 19-Jun-2022 15:04, No significant change Confirmed by Rod Castillo ([id number]) on 08/14/2024 10:19:45 PM Referred By: Confirmed By: Rod Castillo
[2024-08-15 04:18] VITALS: O2SAT 99
--- NOTE | 2024-08-15 05:11 | XCELERA ---
[id number]
[2024-08-15 07:37] VITALS: PULSE 96; RESP 18; TEMP 98.1
--- NOTE | 2024-08-15 07:37 | Discharge Summary ---
Discharge Summary Date of Service August 15, 2024 Principal Dx & Hospital Course #1 = Principal Diagnosis (1) Facial numbness: (2) Hypertension: (3) Waldenstrom macroglobulinemia: Eduardo Montano is a 79F with a PMHx of rectal cancer s/p colostomy, Waldenstrom's macroglobulinemia, and osteoporosis who presents with facial numbness starting morning of arrival. Last known well 3AM 08/14. [facility] Alert called in the ED, teleneurology doc recommended admission for standard stroke workup. Initial evaluation includes head CT, Head and Neck CTA without acute findings. Admitted for further stroke workup. #Facial Numbness - Stroke Vs Ragsdale's Palsy Head CT/Head and Neck CTA without acute findings Brain MRI without evidence of stroke, patient was still having some numbness/tingling at time of the MRI. 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 MRI did show small vessel disease and due to increased risk was recommended to take aspirin 81 mg for primary prevention Echo final read was pending at time of discharge however given no stroke pathology on MRI and no chest pain can follow-up on the results of this as an outpatient #Hypertension Persistent elevations in the ED, not on meds at home. Reports has been increasing recently but mainly 140s systolic Started on metprolol 12.5mg succinate blood pressure control. Follow-up to PCP as outpatient for adjustments as needed MTP was chosen over thiazide/ZULLY/ARB as she regularly takes Celebrex. Celebrex was held for upper limit of normal Cr. No DM/CAD comorbidity. Preferred to avoid amlodipine 2/2 leg swelling side effect #Waldenstrom's Macroglobulinemia follows with Dr. Deleon Continue Zanubrutinib - ragsdale's palsy or hypercoagulable state NOT listed as common adverse effects Thrombocytopenia and leukopenia likely results of this Discussed w/ hemeonc. OK with Asa 81mg MoWeFrSa for primary prevention while on Zanubrutinib. # hx of rectal CA Ostomy in place - ostomy care q shift No change in management Admission HPI Per Admitting Provider Charmaine is a 79F with a PMHx of rectal cancer s/p colostomy, Waldenstrom's macroglobulinemia, and osteoporosis who presents with facial numbness. Woke up at 3 am and felt fine, went back to bed. Woke up again at around 7 with a tearing sensation in her right eye and numbness around the right side of her mouth. No difficulty swallowing. No hx of CVa/TIA or blood clot. Feeling her normal self. No recent cough/cold symptoms. Does report hx of PVCs but denies afib hx. States BP has been higher, 140s systolic. That 200s is quite abnormal for her. [place] neurology -- not TNK, MRI and echo - standard stroke workup Discharge Exam General: A&Ox3. NAD. Cooperative. HEENT: Atraumatic, normocephalic. Vision/hearing intact. Pulm: CTAB A&P. -wheezes, -rales, -rhonchi. Symmetrical chest rise. No increased work of breathing. No respiratory distress. Cardiac: RRR, -mrg. Radial pulses intact and symmetrical. Ext: MOving all extremities equally Discharge Plan Discharge Items Patient Disposition: Home - Self-Care Reason For Visit: STROKE R/O Discharge Diagnosis: Ragsdale's palsy Condition on Discharge: Fair Activity: Resume your previous activity Non-emergency contact: Primary Care Provider Call non-emergency contact if: you have any medication questions Follow-up/Referrals: ProSharan MD [Primary Care Provider] - Diet: Heart Healthy Addtl Attending Provider Instructions: You were seen in the hospital for evaluation of right facial numbness/tingling. You were evaluated for potential stroke. A CT scan of your head and neck did not show any acute findings. An MRI of your brain did not show evidence of a stroke. Your symptoms may have been caused by a mild Ragsdale's palsy. You have been prescribed prednisone. Please take prednisone 40 mg daily for 4 additional days. Your blood pressure was noted to be high during admission. On review of past blood pressures you are also generally above goal for the last year. You have been started on a blood pressure medication, metoprolol. Please take metoprolol 12.5mg daily by mouth and follow-up with your primary care physician for blood pressure checks and adjustments as needed. Your MRI did show some age-related multivessel small vessel disease (age-related gradual buildup on the very small blood vessels in the brain). It was recommended you take an aspirin 81 mg on Saturday, Saturday, Fridays, and Saturdays for primary stroke prevention. Your zanubrutinib can raise aspirin levels in the blood, as a result you have not been precribed daily aspirin and may skip Saturday//Sundays. Please avoid taking celebrex in the future. Your kidney numbers were within the upper range of normal for you, and celebrex can contribute to kidney injury. Please have a BMP rechecked in 1-3 weeks as an ourpatient by your family doctor. If you develop any new or worsening symptoms including fever, chills, sweats, chest pain, chest pressure, difficulty breathing, uncontrolled nausea/vomiting, rash, wheezing, passing out or nearly passing out, bleeding, black/bloody bowel movements, or other new or concerning symptoms please call your primary care physician, or call 911 for re-evaluation in the emergency department if you are very concerned. Pending Studies at Discharge: No Stand-Alone Forms: My [employer], Smoking Cessation Medications and DC Order Prescriptions: New prednisone 20 mg Tablet 40 mg PO DAILY Qty: 8 0RF metoprolol succinate 25 mg tablet extended release 24 hr 12.5 mg PO DAILY Qty: 15 0RF aspirin 81 mg tablet 81 mg PO MOWEFRSA Qty: 20 0RF Continued calcium carbonate 600 mg calcium (1,500 mg) tablet 300 mg PO BID cholecalciferol (vitamin D3) 50 mcg (2,000 unit) tablet 1,000 unit PO QAM triamcinolone acetonide 0.1 % ointment 1 applic topical DIRECTED PRN (Reason: Other) Brukinsa 80 mg capsule 160 mg PO BID celecoxib 200 mg capsule 200 mg PO BID meclizine 25 mg tablet 25 mg PO UD PRN (Reason: dizziness) Rx Instructions: PO .TAKE 1/2 TO 1 TABLET EVERY 6 HOURS NEEDED FOR DIZZINESS. PRN; Discharge Orders: Discharge Order (Routine); Ordered 08/15/24 Ordered By: Germain Ponce Admission Data Admit Date/Time: 08/14/24 13:49 Attending Provider: Germain Ponce Admit Provider: Germain Ponce Primary Care Provider: Sharan Pittman Other Providers: Germain Ponce Hospital Stay Data Consultations 08/14/24 13:11 ED Decision to Admit Stat Diagnostic Imagining Performed 08/14/24 12:41 CT Brain [CT head/brain wo con] Stat CT angio head w con Stat CT angio neck with con Stat 08/14/24 13:34 MRI Brain [MR brain wo con] Urgent Discharge Instructions Given to Patient (Per Discharging Provider) You were seen in the hospital for evaluation of right facial numbness/tingling. You were evaluated for potential stroke. A CT scan of your head and neck did not show any acute findings. An MRI of your brain did not show evidence of a stroke. Your symptoms may have been caused by a mild Ragsdale's palsy. You have been prescribed prednisone. Please take prednisone 40 mg daily for 4 additional days. Your blood pressure was noted to be high during admission. On review of past blood pressures you are also generally above goal for the last year. You have been started on a blood pressure medication, metoprolol. Please take metoprolol 12.5mg daily by mouth and follow-up with your primary care physician for blood pressure checks and adjustments as needed. Your MRI did show some age-related multivessel small vessel disease (age-related gradual buildup on the very small blood vessels in the brain). It was recommended you take an aspirin 81 mg on Saturday, Saturday, Fridays, and Saturdays for primary stroke prevention. Your zanubrutinib can raise aspirin lev els in the blood, as a result you have not been precribed daily aspirin and may skip Saturday//Sundays. Please avoid taking celebrex in the future. Your kidney numbers were within the upper range of normal for you, and celebrex can contribute to kidney injury. Please have a BMP rechecked in 1-3 weeks as an ourpatient by your family doctor. If you develop any new or worsening symptoms including fever, chills, sweats, chest pain, chest pressure, difficulty breathing, uncontrolled nausea/vomiting, rash, wheezing, passing out or nearly passing out, bleeding, black/bloody bowel movements, or other new or concerning symptoms please call your primary care physician, or call 911 for re-evaluation in the emergency department if you are very concerned. Total Time Total Time Spent Total Time Spent (In Minutes): 35 min Coding Level of Care Code 60479 INP/OBS DISCH >30 MIN Diagnoses Facial numbness R20.0 Hypertension I10 Waldenstrom macroglobulinemia C88.0
[2024-08-15 07:44] LABS: Basophils # (auto) 0.02 K/uL (0.00-0.20); Basophils % (auto) 0.7 %; Eosinophils % (auto) 3.6 %; Hematocrit (blood only) 35.6 % (37.0-47.0); Immature Granulocytes # (auto) 0.01 K/uL (0.01-0.20); Immature Granulocytes % (auto) 0.4 %; Lymphocytes # (auto) 0.63 K/uL (1.20-3.40); Lymphocytes % (auto) 22.8 %; Mean Corpuscular Hemoglobin 32.1 pg (25.0-34.0); Mean Corpuscular Hgb Conc 33.7 g/dL (32.0-36.0); Mean Corpuscular Volume 95.2 fL (80.0-100.0); Mean Platelet Volume 9.8 fL (9.4-12.4); Monocytes # (auto) 0.28 K/uL (0.11-0.59); Monocytes % (auto) 10.1 %; Neutrophils # (auto) 1.72 K/uL (1.40-6.50); Neutrophils % (auto) 62.4 %; Platelet Count 106 K/uL (130-400); RDW Coefficient of Variation 11.8 % (11.5-14.5); Red Blood Count 3.74 M/uL (4.20-5.40); White Blood Count 2.76 K/ul (4.8-10.8)
[2024-08-15 08:03] LABS: BUN Creatinine Ratio 13.3 (10-20); Calcium 9.1 mg/dl (8.6-10.3); Chol HDL Ratio 2.2 (0-5); Potassium 3.8 mmol/L (3.5-5.1)
[2024-08-15] MEDS: ENOXAPARIN INJ 40 MG/0.4 ML SYR SQ SCH (08:09)
[2024-08-15] MEDS: ASPIRIN 81 MG ECTAB PO SCH (08:09)
[2024-08-15] MEDS: predniSONE 20 MG TAB PO STA (08:13)
[2024-08-15] MEDS: amLODIPine BESYLATE 5 MG TAB PO SCH (08:13)
[2024-08-15 08:18] LABS: Estimated Average Glucose 100 mg/dl; Hemoglobin A1C 5.1 % (4.5-5.6)
[2024-08-15] MEDS ORDERED: STROKE PATIENT DISCHARGE STA (09:13)
[2024-08-15 10:06] VITALS: BP 180/77
[2024-08-16] MEDS ORDERED: predniSONE 20 MG TAB PO SCH (09:00)
== END 2024-08-15 11:17 | disposition home or self-care (01) ==
LOC: 2N 11:29 → ED 11:29 → 2N 16:16

== ENCOUNTER 2025-01-22 16:24 | Inpatient (IN) ==
--- NOTE | 2025-01-22 17:04 | Emergency Department Note ---
Impression & Plan Gross hematuria, Anemia requiring transfusions, Symptomatic anemia, Tachycardia ED Provider Note HISTORY OF PRESENT ILLNESS: Patient is an 80-year-old female presenting with gross hematuria. Patient reports that she had a cystoscopy done yesterday with placement of a right ureteral stent. She states that she had a little bit of blood in the urine last night. However, she reports that since waking up this morning she has been having grossly bloody urine. Reports that she has been feeling very weak and her has been having to get her up to go to the bathroom, which is not typical for her. Not on any anticoagulation or antiplatelet therapies. She states that she has been having uncontrollable episodes of leakage of bloody urine today. She had called urology and was referred to the emergency department for further evaluation. Denies any fevers or chills. Denies any abdominal pain. She does currently feel nauseous. ROS: as above PHYSICAL EXAM: Constitutional: Patient appears in no acute distress. HENT: Head: Normocephalic and atraumatic. Eyes: EOMI, PERRL Mouth/Throat: Mucous membranes moist. Neck: Trachea midline. Neck supple. Cardiovascular: Tachycardic with regular rhythm. No murmurs, rubs or gallops. Intact distal pulses. Pulmonary/Chest: No respiratory distress. Breath sounds clear and equal bilaterally. No wheezes or rales. Abdominal: Abdomen soft, no tenderness, rebound or guarding. : Chaperoned by nursing staff. Patient is noted to have brendon bloody urine coming from the urethra. No vaginal bleeding noted from the vaginal vault. Musculoskeletal: No edema, tenderness or deformity noted. Skin: Warm and dry. No rash, erythema, or cyanosis. Pale appearing Psychiatric: Appropriate mood and affect for situation. Neurological: Alert and keenly responsive. CN II-XII grossly intact, moving all extremities equally and fully. MDM: - Vitals signs showed tachycardic - History obtained via patient. History as above. - Chronic conditions affecting care: hydronephrosis of right kidney; HTN - Differential diagnoses include, but are not limited to: Bleeding biopsy site; ureteral irritation; hemorrhage; UTI; anemia - Order placed for continuous cardiac monitoring. At this time, monitor showed rate of 121 bpm with regular rhythm, per my interpretation. - External medical records reviewed. Operative report dated 01/21/2025 was reviewed. Patient had a cystoscopy and a right retrograde pyelogram with right ureteral stent insertion performed yesterday. - Laboratory workup interpreted by myself showed normal WBC; anemia (Hgb 6.7); stable electrolytes other than hypocalcemia (Ca 7.8); normal AST/ALT; normal creatinine; normal lipase - Type and screen ordered. 3 units PRBCs ordered with 1 to transfuse now. - Patient consented for blood products. 1 unit PRBC transfused in ER. - CT abdomen/pelvis with IV contrast showed ureteral stent on the right with marked hydronephrosis. Noted to have increased attenuation at the level of the right renal pelvis concerning for hemorrhagic products. - Patient given 4 mg IV zofran in ER for nausea. - 3 way flores catheter ordered. Patient having grossly bloody urine filling up the bag. Continuous bladder irrigation was not yet ordered, as there does not appear to be clots in the Flores at this time. - Discussed case with urologist on-call, Dr. Benito, at 17:10. He agrees with the interventions thus far and recommends admission to medicine with urology on consult. No need for OR at this time. - Discussion was had with community case manager about patient's case and need for admission - Hospitalist consulted for admission - [facility] for further evaluation and management. I have personally spent 61 minutes of critical care time in the direct management of this patient. This includes bedside care, interpretation of diagnostic studies, and testing, discussion with consultants, patient, and family members, and other required patient management activities. This 61 minutes is in excess of all separately billable procedures. ASSESSMENT AND PLAN: Diagnosis: Gross hematuria; anemia requiring transfusion; tachycardia; symptomatic anemia Plan: Admit Past Med/Surg History Problem List (Updated 01/22/25 @ 20:18 by Marsha Viera MD) Tachycardia (Acute) Symptomatic anemia (Acute) Anemia requiring transfusions (Acute) Gross hematuria (Acute) Sensorineural hearing loss (SNHL) of both ears Cervical dystonia Cervical stenosis of spinal canal Dizziness Hypertension Facial numbness (Acute) Vaginal bleeding Fissure of genital labium Recurrent UTI Ganglion, right wrist Constipation Strain of quadriceps tendon Metatarsalgia of left foot Greater trochanteric bursitis of right hip Osteoarthritis of left knee Hydronephrosis UPJ obstruction, acquired Hypokalemia Extrarenal pelvis Urinary symptom or sign Dry mouth Mouth sore Umbilical hernia Lichen sclerosus et atrophicus of the vulva Back pain due to inflammatory process Encounter for pre-operative examination Personal hx-rectal/anal malignancy Diagnosed 1991- s/p surgery Palpitations Parastomal hernia Stable Osteoporosis Lichen simplex chronicus Possible lichen sclerosis - follows with derm Stable Leukopenia HX IgA deficiency, selective Under observation x 6 years ([facility]) Bakers cyst (Acute) Atrial premature complex Occasionally symptomatic- "mild" > no cardio Arthritis Medical History Abnormal blood chemistry hx Arthritis Atrial premature complex Occasionally symptomatic- "mild" > no cardio Cervical stenosis of spinal canal no ROM limitations Cole angioma pt unsure about this? Colostomy in place No current issues Dermatofibroma pt unsure about this? Fissure in skin hx History of actinic keratoses History of blood transfusion Post-op bowel surgery History of rectal cancer 1991 > surgery (removed 9" colon/rectum, back wall of vagina and a total hysterectomy at same time, per pt) Hx of hydronephrosis Hyperplastic colon polyp hx IgA deficiency, selective hx Leukopenia hx Lichen simplex chronicus Possible lichen sclerosis - follows with derm Stable Lumbago hx Mineral deficiency hx Monoclonal gammopathy Under observation Neoplasm of uncertain behavior of skin hx Osteoporosis Parastomal hernia Premature ventricular contractions hx, no recent issues, no cardiology Raynaud's disease Stroke-like symptoms 08/2024, numbness side of face, evaluated with 2 f/u MRI's, no evidence of stroke; 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, 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 UPJ obstruction, acquired hx Vitamin D deficiency Waldenstrom macroglobulinemia f/u onco 360 Surgical History History of anesthesia complications "Remained numb until the next day after her spinal" History of bone marrow biopsy 03/2024, [facility] History of section x3 History of colectomy 9 inches removed [address] [facility] d/t rectal cancer> colostomy History of colonoscopy with polypectomy (2023) History of elbow surgery left History of wisdom tooth extraction Hx of removal of cyst Nausea and vomiting after administration of anesthetic agent S/P hysterectomy S/P tonsillectomy Status post laser cataract surgery of both eyes Status post left knee replacement Left TKA (11/20/21): SAB x1 attempt + PNB at [facility] Status post right hip replacement (~07/2022) Status post right knee replacement Right TKA (07/04/21): SAB at L3/4 + PNB at [facility] Family History Mother Alzheimer disease Grandmother (Maternal) Diabetes Father Hypertension Stroke Other No family history of adverse response to anesthesia Denies family history of Ovarian cancer Prostate cancer Myocardial infarction Breast cancer Social History Smoking Status: Never smoker Tobacco Type: Declines Second Hand Exposure: No; Do You Dip or Chew Tobacco: No; Hx Alcohol Use: Yes (none since cancer dx.) Alcohol type: wine and hard liquor Hx Substance Use: Yes (medical card) Last Used Substance Other:: only has used 3x since getting card Preferred Language: German Communication Ability: Effective Visual Impairment: No Limitations Hearing Ability: Normal Director Global Development Required: No Beliefs That Will Affect Care: None marital status: Current Living Situation: Spouse Current Living Situation Comment: home with current occupational status: retired How many Children do You have: 3 How many Children do You have Comment: 3 girls Feels Safe at Home: Yes Childhood Exposure to Second-Hand Smoke: No Diet: regular during the past year weight has: remained stable Dental Care, Regularly: Yes Physical Activity Frequency: 5-6 Times per Week Seatbelt Use: always Sunscreen Use: Yes Assistive Devices: None Allergies Allergies Allergy/AdvReac Type Severity Reaction Status Date / Time amoxicillin AdvReac Intermediate Loose Verified 01/22/25 18:50 stools clavulanic acid AdvReac Intermediate Loose Verified 01/22/25 18:50 stools Home Meds Home Medications Medication Instructions Recorded Confirmed calcium carbonate 300 mg PO BID 06/29/19 01/22/25 zanubrutinib 80 mg capsule 160 mg PO BID 06/24/24 01/22/25 (Brukinsa) aspirin 81 mg tablet 81 mg PO 4XWK 10/18/24 01/22/25 cholecalciferol (vitamin D3) 25 25 mcg PO DAILY 10/18/24 01/22/25 mcg (1,000 unit) capsule (Vitamin D3) metoprolol succinate 25 mg 12.5 mg PO QAM 01/14/25 01/22/25 tablet,extended release 24 hr tramadol 50 mg tablet 50 mg PO UD PRN Pain 01/14/25 01/22/25 Previous Rx's Medication Instructions Recorded meclizine 25 mg tablet 12.5 - 25 mg (0.5 - 1 x 25 mg) PO 11/05/24 Q6H PRN dizziness #20 tabs cephalexin 500 mg capsule 500 mg PO BID 5 days #10 caps 01/21/25 Results & Data (ED) Vital Signs Vital Signs - 24 hr 01/22/25 16:45 01/22/25 16:45 01/22/25 16:52 Temperature 37.4 C Temperature Source Oral Pulse Rate 124 H 124 H 125 H Pulse Rate [Apical] Pulse Rhythm Regular Regular Respiratory Rate 20 18 Respiratory Depth Normal Blood Pressure 120/53 L Blood Pressure [Right Arm] Blood Pressure Mean 75 Blood Pressure Mean [Right Arm] Pulse Oximetry 98 97 Oxygen Delivery Method Room Air Room Air Sepsis Recent Fever Within 48 Hours No Sepsis New/Unexplained Change in Mental Status No Sepsis Action Taken by Nursing No Action Required 01/22/25 18:00 01/22/25 18:18 01/22/25 18:40 Temperature 37.9 C H Temperature Source Oral Pulse Rate 125 H Pulse Rate [Apical] 124 H Pulse Rhythm Respiratory Rate 22 22 Respiratory Depth Normal Blood Pressure 117/78 Blood Pressure [Right Arm] 121/66 94/66 L Blood Pressure Mean 91 Blood Pressure Mean [Right Arm] 84 75 Pulse Oximetry 98 95 Oxygen Delivery Method Room Air Sepsis Recent Fever Within 48 Hours Sepsis New/Unexplained Change in Mental Status Sepsis Action Taken by Nursing 01/22/25 18:55 01/22/25 19:10 01/22/25 19:25 Temperature 37.9 C H 36.8 C 36.7 C Temperature Source Oral Oral Oral Pulse Rate 128 H 125 H 126 H Pulse Rate [Apical] Pulse Rhythm Respiratory Rate 22 22 20 Respiratory Depth Blood Pressure 117/78 98/67 L 105/57 L Blood Pressure [Right Arm] Blood Pressure Mean 91 77 73 Blood Pressure Mean [Right Arm] Pulse Oximetry 96 98 94 Oxygen Delivery Method Sepsis Recent Fever Within 48 Hours Sepsis New/Unexplained Change in Mental Status Sepsis Action Taken by Nursing 01/22/25 19:55 Temperature 36.4 C L Temperature Source Oral Pulse Rate 126 H Pulse Rate [Apical] Pulse Rhythm Respiratory Rate 20 Respiratory Depth Blood Pressure 100/67 Blood Pressure [Right Arm] Blood Pressure Mean 78 Blood Pressure Mean [Right Arm] Pulse Oximetry 97 Oxygen Delivery Method Sepsis Recent Fever Within 48 Hours Sepsis New/Unexplained Change in Mental Status Sepsis Action Taken by Nursing Laboratory Data 01/22/25 17:49 01/22/25 17:27 Lab Results 01/22/25 01/22/25 01/22/25 Range/Units 16:43 16:56 17:27 WBC Cancelled RBC Cancelled Hgb Cancelled Hct Cancelled MCV Cancelled MCH Cancelled MCHC Cancelled RDW Std Deviation Cancelled RDW Coeff of Amanda Cancelled Plt Count Cancelled MPV Cancelled Immature Gran % (Auto) Cancelled Neut % (Auto) Cancelled Lymph % (Auto) Cancelled Pendleton % (Auto) Cancelled Eos % (Auto) Cancelled Baso % (Auto) Cancelled Neut # (Auto) Cancelled Lymph # (Auto) Cancelled Pendleton # (Auto) Cancelled Eos # (Auto) Cancelled Baso # (Auto) Cancelled Immature Gran # (Auto) Cancelled Absolute Nucleated RBC Cancelled Nucleated RBC % (auto) Cancelled Neutrophils % (Manual) Cancelled Band Neutrophils % Cancelled Lymphocytes % (Manual) Cancelled Prolymphocyte % Cancelled Reactive Lymphs % (Man) Cancelled Monocytes % (Manual) Cancelled Eosinophils % (Manual) Cancelled Basophils % (Manual) Cancelled Metamyelocytes % (Man) Cancelled Myelocytes % (Man) Cancelled Promyelocytes % (Man) Cancelled Blast Cells % (Manual) Cancelled Plasma Cell % (Manual) Cancelled Other Cells % Cancelled Nucleated RBC % Cancelled Neutrophils # (Manual) Cancelled Band Neutrophils # Cancelled Total Absolute Neuts Cancelled Lymphocytes # (Manual) Cancelled Prolymphocyte # Cancelled Reactive Lymphs # Cancelled Total Abs Lymphocytes Cancelled Monocytes # (Manual) Cancelled Eosinophils # (Manual) Cancelled Basophils # (Manual) Cancelled Metamyelocytes # (Man) Cancelled Myelocytes # (Manual) Cancelled Promyelocytes # (Man) Cancelled Blast Cells # (Man) Cancelled Plasma Cell # (Manual) Cancelled Other Cells # Cancelled Nucleated RBCs # (Man) Cancelled Hypersegmented Neuts Cancelled Hyposegmented Neuts Cancelled Hypogranular Neuts Cancelled Large Granular Lymphs Cancelled # Lrg Granular Lymphs Cancelled Hairy Cells Cancelled Smudge Cells Cancelled Toxic Granulation Cancelled Toxic Vacuolation Cancelled Dohle Bodies Cancelled Sarah Rods Cancelled Platelet Estimate Cancelled Hypogranular Platelets Cancelled Giant Platelets Cancelled Platelet Satelliting Cancelled RBC Morphology Cancelled Polychromasia Cancelled Hypochromasia Cancelled Poikilocytosis Cancelled Basophilic Stippling Cancelled Anisocytosis Cancelled Microcytosis Cancelled Macrocytosis Cancelled Spherocytes Cancelled Pappenheimer Bodies Cancelled Sickle Cells Cancelled Target Cells Cancelled Tear Drop Cells Cancelled Ovalocytes Cancelled Stomatocytes Cancelled Bal-Cleves Bodies Cancelled Echinocytes Cancelled Acanthocytes (Spur) Cancelled Rouleaux Cancelled RBC Agglutinates Cancelled Schistocytes Cancelled Sezary Cell Cancelled Sodium 135 L (136-145) mmol/L Potassium TNP 3.9 Chloride 103 (98-107) mmol/L Carbon Dioxide 24 (21-32) mmol/L Anion Gap 8 (3-11) BUN 18 (6-23) mg/dl Creatinine 0.95 (0.6-1.2) mg/dl Est Cr Clr Drug Dosing Not Reportable eGFR 59.82 BUN/Creatinine Ratio 18.9 (10-20) Glucose 123 H (70-99(Fasting)) mg/dl Calcium 7.8 L (8.6-10.3) mg/dl Total Bilirubin 0.8 (0.2-1.0) mg/dl AST TNP 36 ALT 35 (7-52) U/L Alkaline Phosphatase 119 H (34-104) U/L Total Protein 5.4 L (6.0-8.3) gm/dl Albumin 2.7 L (3.4-5.0) gm/dl Globulin 2.7 (2.5-4.0) gm/dl Albumin/Globulin Ratio 1.0 (0.9-2) Lipase 12 (11-82) U/L Blood Parasites ID Cancelled Blood Type O Positive Antibody Screen NEGATIVE Crossmatch See Detail 01/22/25 Range/Units 17:49 WBC 7.16 RBC 2.15 L Hgb 6.7 L* Hct 20.9 L* MCV 97.2 MCH 31.2 MCHC 32.1 RDW Std Deviation 47.0 H RDW Coeff of Amanda 13.2 Plt Count 158 MPV 9.1 L Immature Gran % (Auto) 0.4 Neut % (Auto) 88.5 Lymph % (Auto) 1.8 Pendleton % (Auto) 9.2 Eos % (Auto) 0.0 Baso % (Auto) 0.1 Neut # (Auto) 6.33 Lymph # (Auto) 0.13 L Pendleton # (Auto) 0.66 H Eos # (Auto) 0.00 Baso # (Auto) 0.01 Immature Gran # (Auto) 0.03 Absolute Nucleated RBC Nucleated RBC % (auto) Neutrophils % (Manual) Band Neutrophils % Lymphocytes % (Manual) Prolymphocyte % Reactive Lymphs % (Man) Monocytes % (Manual) Eosinophils % (Manual) Basophils % (Manual) Metamyelocytes % (Man) Myelocytes % (Man) Promyelocytes % (Man) Blast Cells % (Manual) Plasma Cell % (Manual) Other Cells % Nucleated RBC % Neutrophils # (Manual) Band Neutrophils # Total Absolute Neuts Lymphocytes # (Manual) Prolymphocyte # Reactive Lymphs # Total Abs Lymphocytes Monocytes # (Manual) Eosinophils # (Manual) Basophils # (Manual) Metamyelocytes # (Man) Myelocytes # (Manual) Promyelocytes # (Man) Blast Cells # (Man) Plasma Cell # (Manual) Other Cells # Nucleated RBCs # (Man) Hypersegmented Neuts Hyposegmented Neuts Hypogranular Neuts Large Granular Lymphs # Lrg Granular Lymphs Hairy Cells Smudge Cells Toxic Granulation Toxic Vacuolation Dohle Bodies Sarah Rods Platelet Estimate Hypogranular Platelets Giant Platelets Platelet Satelliting RBC Morphology Unremarkable Polychromasia Hypochromasia Poikilocytosis Basophilic Stippling Anisocytosis Microcytosis Macrocytosis Spherocytes Pappenheimer Bodies Sickle Cells Target Cells Tear Drop Cells Ovalocytes Stomatocytes Bal-Cleves Bodies Echinocytes Acanthocytes (Spur) Rouleaux RBC Agglutinates Schistocytes Sezary Cell Sodium (136-145) mmol/L Potassium Chloride (98-107) mmol/L Carbon Dioxide (21-32) mmol/L Anion Gap (3-11) BUN (6-23) mg/dl Creatinine (0.6-1.2) mg/dl Est Cr Clr Drug Dosing eGFR BUN/Creatinine Ratio (10-20) Glucose (70-99(Fasting)) mg/dl Calcium (8.6-10.3) mg/dl Total Bilirubin (0.2-1.0) mg/dl AST ALT (7-52) U/L Alkaline Phosphatase (34-104) U/L Total Protein (6.0-8.3) gm/dl Albumin (3.4-5.0) gm/dl Globulin (2.5-4.0) gm/dl Albumin/Globulin Ratio (0.9-2) Lipase (11-82) U/L Blood Parasites ID Blood Type Antibody Screen Crossmatch Administered Medications Discontinued Medications Ioversol (Optiray 320 100ml) 93 ml IV ONCE ONE Stop: 01/22/25 17:40 Last Admin: 01/22/25 17:39 Dose: 93 ml Documented By: KIA Ondansetron HCl (Ondansetron Inj 2 Mg/Ml 2 Ml Vial) 4 mg IV NOW STA Stop: 01/22/25 18:36 Last Admin: 01/22/25 20:08 Dose: 4 mg Documented By: STEVENSON Imaging Data Radiologist's Impression: Abdomen/Pelvis CT 01/22/25 16:58 EXAMINATION: CT of the abdomen and pelvis performed after the administration of IV contrast. TECHNIQUE: Helical CT images from the lung bases through the symphysis pubis were obtained with contrast. Coronal and sagittal reformatted images were generated at a workstation for further assessment. Dose reduction techniques were achieved by using automatic exposure control and/or adjustment of mA and/or kV according to patient size and/or use of iterative reconstruction technique. HISTORY: Gross hematuria. Recent biopsy. COMPARISON: December 18, 2024 and June 20, 2021. Study reports not available at the time of dictation. FINDINGS: Vacuum Pan Operator film demonstrates right hip arthroplasty changes. Right ureteral stent. Lung windows demonstrate at least mild dependent subsegmental atelectasis bilateral pulmonary bases. Soft tissue windows demonstrate small bilateral pleural effusions. Calcified atherosclerotic changes coronary vasculature. Prominent pancreatic duct. Pancreas is otherwise within normal limits. Prominent intrahepatic ducts. No discrete mass. No appreciated radiopaque choledocholithiasis. There is marked right-sided hydronephrosis with small independent gas densities within the renal pelvis. Dependent regions of increased attenuation which may represent elements of sediment and/or hemorrhage noted. Overall hydronephrosis is decreased when compared to prior study. There is a double-J ureteral stent in place. At least mild hydroureter with prominent distended urinary bladder. Independent gas densities within the urinary bladder noted. No discrete stone or mass. There is mass effect and near complete effacement of the inferior vena cava. Streak artifact from right hip arthroplasty hardware limits portions of the right pelvic evaluation. Small amount of free fluid within the dependent pelvis is noted. Focal elements of enhancement at the level of the rectum questionably representing hemorrhoids. Correlate with clinical data. Further characterization limited on this exam. Left lower quadrant colostomy again noted. Small parastomal hernia. Difficulty following small and large bowel throughout their course. Question rectal pouch. Prominent left renal collecting system. Prominent urothelial enhancement. Nonobstructing small left renal calculi. Difficulty following left ureter throughout its course. Appendix is not identified. No secondary findings of appendiceal disease. Remaining solid and hollow organs of the abdomen and pelvis are within normal limits. No free air. Bone windows demonstrate chronic. Lucencies at the level of the right acetabulum. This does not appear to be significantly changed. Right hip arthroplasty hardware appears to be intact. Multilevel superior plate compression fracture deformities T12 and lumbar spine. There is most marked at L3. These findings are not appreciably changed. At least mild spinal canal and foraminal stenoses. Acquired fusion changes left sacroiliac joint. IMPRESSION: 1. Interval right double-J ureteral stent with persistent marked hydronephrosis. Elements of increased attenuation at the level of the right renal pelvis may represent hemorrhagic products. Additional small elements of independent gas within the right renal pelvis and urinary bladder. No discrete mass or stone. Correlate with clinical data. Please see above for details. 2. Near complete effacement of the inferior vena cava. Likely hemorrhoids at the level of the rectum. Suspect rectal pouch with left lower quadrant colostomy. Correlate with clinical data. 3. Mild dependent bibasilar subsegmental atelectasis and small effusions. Please see above for details. Electronically signed by Naresh Yun 01-22-2025 6:58 PM Discharge Plan Visit Data Chief Complaint: Urinary Symptoms Stated Complaint: BLOOD IN URIN ED Provider: Marsha Viera Discharge Problem: Gross hematuria, Anemia requiring transfusions, Symptomatic anemia, Tachycardia Condition: Serious Forms Stand Alone Forms: [employer] Prescriptions Prescriptions: No Action meclizine 25 mg tablet 12.5 - 25 mg PO Q6H PRN (Reason: dizziness) Qty: 20 0RF calcium carbonate 600 mg calcium (1,500 mg) tablet 300 mg PO BID Brukinsa 80 mg capsule 160 mg PO BID tramadol 50 mg tablet 50 mg PO UD PRN (Reason: Pain) metoprolol succinate 25 mg tablet extended release 24 hr 12.5 mg PO QAM cephalexin 500 mg capsule 500 mg PO BID 5 Days Qty: 10 0RF Rx Instructions: STARTED 01/21/25 FOR 5 DAYS cholecalciferol (vitamin D3) [Vitamin D3] 25 mcg (1,000 unit) Capsule 25 mcg PO DAILY aspirin 81 mg tablet 81 mg PO [id number] Rx Instructions: MON, WED, FRI, & SAT. Referrals Referrals: Pro,Sharan Hobson MD [Primary Care Provider] -
[2025-01-22 17:17] LABS: Alanine Aminotransferase 35 U/L (7-52); Albumin Globulin Ratio 1.0 (0.9-2); Albumin Level 2.7 gm/dl (3.4-5.0); Alkaline Phosphatase 119 U/L (34-104); Anion Gap 8 (3-11); Bilirubin,Total 0.8 mg/dl (0.2-1.0); Blood Urea Nitrogen 18 mg/dl (6-23); Calcium 7.8 mg/dl (8.6-10.3); Carbon Dioxide 24 mmol/L (21-32); Chloride 103 mmol/L (98-107); Globulin 2.7 gm/dl (2.5-4.0); Glucose 123 mg/dl (70-99(Fasting)); Lipase 12 U/L (11-82); Sodium 135 mmol/L (136-145); Total Protein 5.4 gm/dl (6.0-8.3)
[2025-01-22] MEDS: OPTIRAY 320 100ml IV ONE (17:39)
[2025-01-22 17:53] LABS: Potassium 3.9 mmol/L (3.5-5.1)
[2025-01-22] MEDS ORDERED: SODIUM CHLORIDE 0.9% 100 ML IV PRN (18:12)
[2025-01-22 18:14] LABS: Hematocrit (blood only) 20.9 % (37.0-47.0); Hemoglobin 6.7 g/dl (12.0-16.0); Mean Corpuscular Hemoglobin 31.2 pg (25.0-34.0); Mean Corpuscular Volume 97.2 fL (80.0-100.0); Platelet Count 158 K/uL (130-400); RDW Standard Deviation 47.0 fL (36.4-46.3); Red Blood Count 2.15 M/uL (4.20-5.40); White Blood Count 7.16 K/ul (4.8-10.8)
[2025-01-22 18:29] LABS: Immature Granulocytes # (auto) 0.03 K/uL (0.01-0.20); Immature Granulocytes % (auto) 0.4 %; RBC Morphology Unremarkable
--- NOTE | 2025-01-22 19:07 | CT Scan Report ---
EXAMINATION: CT of the abdomen and pelvis performed after the administration of IV contrast. TECHNIQUE: Helical CT images from the lung bases through the symphysis pubis were obtained with contrast. Coronal and sagittal reformatted images were generated at a workstation for further assessment. Dose reduction techniques were achieved by using automatic exposure control and/or adjustment of mA and/or kV according to patient size and/or use of iterative reconstruction technique. HISTORY: Gross hematuria. Recent biopsy. COMPARISON: December 18, 2024 and June 20, 2021. Study reports not available at the time of dictation. FINDINGS: Consulting Psychiatrist film demonstrates right hip arthroplasty changes. Right ureteral stent. Lung windows demonstrate at least mild dependent subsegmental atelectasis bilateral pulmonary bases. Soft tissue windows demonstrate small bilateral pleural effusions. Calcified atherosclerotic changes coronary vasculature. Prominent pancreatic duct. Pancreas is otherwise within normal limits. Prominent intrahepatic ducts. No discrete mass. No appreciated radiopaque choledocholithiasis. There is marked right-sided hydronephrosis with small independent gas densities within the renal pelvis. Dependent regions of increased attenuation which may represent elements of sediment and/or hemorrhage noted. Overall hydronephrosis is decreased when compared to prior study. There is a double-J ureteral stent in place. At least mild hydroureter with prominent distended urinary bladder. Independent gas densities within the urinary bladder noted. No discrete stone or mass. There is mass effect and near complete effacement of the inferior vena cava. Streak artifact from right hip arthroplasty hardware limits portions of the right pelvic evaluation. Small amount of free fluid within the dependent pelvis is noted. Focal elements of enhancement at the level of the rectum questionably representing hemorrhoids. Correlate with clinical data. Further characterization limited on this exam. Left lower quadrant colostomy again noted. Small parastomal hernia. Difficulty following small and large bowel throughout their course. Question rectal pouch. Prominent left renal collecting system. Prominent urothelial enhancement. Nonobstructing small left renal calculi. Difficulty following left ureter throughout its course. Appendix is not identified. No secondary findings of appendiceal disease. Remaining solid and hollow organs of the abdomen and pelvis are within normal limits. No free air. Bone windows demonstrate chronic. Lucencies at the level of the right acetabulum. This does not appear to be significantly changed. Right hip arthroplasty hardware appears to be intact. Multilevel superior plate compression fracture deformities T12 and lumbar spine. There is most marked at L3. These findings are not appreciably changed. At least mild spinal canal and foraminal stenoses. Acquired fusion changes left sacroiliac joint. IMPRESSION: 1. Interval right double-J ureteral stent with persistent marked hydronephrosis. Elements of increased attenuation at the level of the right renal pelvis may represent hemorrhagic products. Additional small elements of independent gas within the right renal pelvis and urinary bladder. No discrete mass or stone. Correlate with clinical data. Please see above for details. 2. Near complete effacement of the inferior vena cava. Likely hemorrhoids at the level of the rectum. Suspect rectal pouch with left lower quadrant colostomy. Correlate with clinical data. 3. Mild dependent bibasilar subsegmental atelectasis and small effusions. Please see above for details. Electronically signed by Naresh Yun 01-22-2025 6:58 PM
--- NOTE | 2025-01-22 20:03 | History & Physical Report ---
Date of Service January 22, 2025 Assessment & Plan (1) Hematuria: (2) Acute blood loss anemia: (3) Hypertension: Plan 80yo female with history of HTN, Waldenstrom macroglobulinemia and right hydronephrosis s/p cystoscopy with stent placement performed 01/21/2025. Patient with ongoing hematuria, acute blood loss anemia with symptoms of dizziness and lightheadedness. #Hematuria - patient with ongoing hematuria. Red blood present in Swift bag, no clots. Three-way catheter placed in the ER. Patient continues to pass bloody urine without difficulty, no clots. -Admit to medical with telemetry -Check urine culture -Continue to monitor UOP -Bladder scan and irrigation as needed -Will hold patient's Cephalexin for now - treatment with Ceftriaxone 1gm IV daily -Transfusion plan as below -Hold ASA -Urology consultation appreciated -Will keep patient NPO after midnight for possible urological intervention in the AM #Acute blood loss anemia - patient with ongoing hematuria. Normochromic, normocytic with Hgb=6.7, Hct=20.9 (decreased from 9.1 and 27.8, respectively on 01/20/25) . Patient with symptoms of dizziness with standing. Is currently receiving 1u PRBCs -Check CBC following transfusion and q 6 hours -Transfuse for ongoing blood loss, symptomatic anemia or Hgb < 7 #Hypertension - patient with borderline low blood pressure -Transfusion as above -Patient on Metoprolol 12.5mg po qAM - will continue cautiously with holding parameters #Waldonstrom macroglobulinemia - patient follows with Oncology -May continue home Zanubrutinib - patient will need to have this medication brought from home as it is non-formulary SCDs to bilateral LE for DVT prophylaxis Full Code History of Present Illness Chief Complaint: hematuria Primary Care Provider: Sharan Pittman MD Charmaine Person is an 80yo female with history of hypertension, Waldenstrom's macroglobulinemia, history of nephrolithiasis, UTIs, hydronephrosis if the right kidney possibly related to UPJ obstruction. Patient has been having hematuria and had a cystoscopy with right retrograde pyelogram and ureteral stent placement performed on 01/21/[address] Kang. She reports having a little bit of hematuria last evening after the procedure. However, since waking up this morning she has been having large volume hematuria with leakage of bloody urine. She denies passage of clots or difficulty passing the urine. She has been having nausea as well as some dizziness with standing but otherwise denies chest pain, palpitations, SOB, abdominal pain, vomiting or diarrhea. In the ER patient had a Swift placed with passage of bright red blood filling the bag, no clots Sinus tachycardia with HR ranging 121-128bpm. Occasional low blood pressure at 94/66 Patient complaining of nausea and ongoing hematuria, otherwise no complaints. ER Course: Zofran 4mg IV Ceftriaxone 1gm Receiving 1u PRBCs currently Allergies Allergy/AdvReac Type Severity Reaction Status Date / Time amoxicillin AdvReac Intermediate Loose Verified 01/22/25 18:50 stools clavulanic acid AdvReac Intermediate Loose Verified 01/22/25 18:50 stools Home Medications Medication Instructions Recorded Confirmed Type calcium carbonate 300 mg PO BID 06/29/19 01/22/25 History zanubrutinib 80 mg capsule 160 mg PO BID 06/24/24 01/22/25 History (Brukinsa) aspirin 81 mg tablet 81 mg PO [id number] 10/18/24 01/22/25 History cholecalciferol (vitamin D3) 25 25 mcg PO DAILY 10/18/24 01/22/25 History mcg (1,000 unit) capsule (Vitamin D3) meclizine 25 mg tablet 12.5 - 25 mg (0.5 - 1 x 25 mg) PO 11/05/24 01/22/25 Rx Q6H PRN dizziness #20 tabs metoprolol succinate 25 mg 12.5 mg PO QAM 01/14/25 01/22/25 History tablet,extended release 24 hr tramadol 50 mg tablet 50 mg PO UD PRN Pain 01/14/25 01/22/25 History cephalexin 500 mg capsule 500 mg PO BID 5 days #10 caps 01/21/25 01/22/25 Rx Past Med/Surg History Problem List (Updated 01/22/25 @ 21:34 by Michelle Kent DO) Acute blood loss anemia Hematuria Tachycardia (Acute) Symptomatic anemia (Acute) Anemia requiring transfusions (Acute) Gross hematuria (Acute) Sensorineural hearing loss (SNHL) of both ears Cervical dystonia Cervical stenosis of spinal canal Dizziness Hypertension Facial numbness (Acute) Vaginal bleeding Fissure of genital labium Recurrent UTI Ganglion, right wrist Constipation Strain of quadriceps tendon Metatarsalgia of left foot Greater trochanteric bursitis of right hip Osteoarthritis of left knee Hydronephrosis UPJ obstruction, acquired Hypokalemia Extrarenal pelvis Urinary symptom or sign Dry mouth Mouth sore Umbilical hernia Lichen sclerosus et atrophicus of the vulva Back pain due to inflammatory process Encounter for pre-operative examination Personal hx-rectal/anal malignancy Diagnosed 1991- s/p surgery Palpitations Parastomal hernia Stable Osteoporosis Lichen simplex chronicus Possible lichen sclerosis - follows with derm Stable Leukopenia HX IgA deficiency, selective Under observation x 6 years ([facility]) Bakers cyst (Acute) Atrial premature complex Occasionally symptomatic- "mild" > no cardio Arthritis Medical History UPJ obstruction, acquired hx Hx of hydronephrosis Cervical stenosis of spinal canal no ROM limitations Stroke-like symptoms 08/2024, numbness side of face, evaluated with 2 f/u MRI's, no evidence of stroke; 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 Atrial premature complex Occasionally symptomatic- "mild" > no cardio Arthritis Vitamin D deficiency Raynaud's disease Premature ventricular contractions hx, no recent issues, no cardiology Neoplasm of uncertain behavior of skin hx Mineral deficiency hx Lumbago hx Hyperplastic colon polyp hx History of actinic keratoses Fissure in skin hx Cole angioma pt unsure about this? Abnormal blood chemistry hx Waldenstrom macroglobulinemia f/u onco 360 History of blood transfusion Post-op bowel surgery History of rectal cancer 1991 > surgery (removed 9" colon/rectum, back wall of vagina and a total hysterectomy at same time, per pt) Colostomy in place No current issues Monoclonal gammopathy Under observation Surgical History History of bone marrow biopsy 03/2024, [facility] Hx of removal of cyst Status post right hip replacement (~07/2022) Status post left knee replacement Left TKA (11/20/21): SAB x1 attempt + PNB at [facility] History of anesthesia complications "Remained numb until the next day after her spinal" Status post right knee replacement Right TKA (07/04/21): SAB at L3/4 + PNB at [facility] Nausea and vomiting after administration of anesthetic agent History of section x3 History of elbow surgery left History of colonoscopy with polypectomy (2023) History of colectomy 9 inches removed 1991 @ [facility] in [place] d/t rectal cancer> colostomy History of wisdom tooth extraction Status post laser cataract surgery of both eyes S/P tonsillectomy S/P hysterectomy Family History Mother Alzheimer disease Grandmother (Maternal) Diabetes Father Hypertension Stroke Other No family history of adverse response to anesthesia Denies family history of Ovarian cancer Prostate cancer Myocardial infarction Breast cancer Social History Smoking Status: Never smoker Tobacco Type: Declines Second Hand Exposure: No; Do You Dip or Chew Tobacco: No; Hx Alcohol Use: Yes (none since cancer dx.) Alcohol type: wine and hard liquor Hx Substance Use: Yes (medical card) Last Used Substance Other:: only has used 3x since getting card Preferred Language: Samoan Communication Ability: Effective Visual Impairment: No Limitations Hearing Ability: Normal English Language Learner Tutor Required: No Beliefs That Will Affect Care: None marital status: Current Living Situation: Spouse Current Living Situation Comment: home with current occupational status: retired How many Children do You have: 3 How many Children do You have Comment: 3 girls Feels Safe at Home: Yes Childhood Exposure to Second-Hand Smoke: No Diet: regular during the past year weight has: remained stable Dental Care, Regularly: Yes Physical Activity Frequency: 5-6 Times per Week Seatbelt Use: always Sunscreen Use: Yes Assistive Devices: None Review of Systems Review of Systems: All systems reviewed & are unremarkable except as noted in HPI & below Physical Exam Physical Exam: General: patient resting comfortably, NAD, non-toxic in appearance, AA&O x 4 Skin: +Pallor, skin warm, dry, intact, no rashes or lesions HEENT: NC/AT, PERRL, EOMI, anicteric sclera, conjunctiva without injection, external ear normal to inspection and nontender, nares patent, moist mucus membranes, dentition intact, no oropharyngeal lesions, neck supple, trachea midline, no LAD, no thyromegaly, no JVD Heart: +S1/S2, regular, tachycardic, no m/r/g Lungs: equal air entry bilaterally, no rales/rhonchi/wheezes Abd: +BS, soft, NT/ND, no masses/organomegaly/ascites, colostomy in place Swift in place with blood in bag, no clots Ext: warm, 2+ pulses in UE/LE bilaterally, no clubbing/cyanosis or edema Neuro: nonfocal, patient AA&O x 4, speech intact, no facial droop, moving all extremities on command with equal strength 5/5 Results & Data Results & Data Vital Signs (Past 12 Hours) Vital Signs Temp Pulse Pulse Resp BP BP Pulse Ox 01/22/25 19:55 36.4 C L 126 H 20 100/67 97 01/22/25 19:25 36.7 C 126 H 20 105/57 L 94 01/22/25 19:10 36.8 C 125 H 22 98/67 L 98 01/22/25 18:55 37.9 C H 128 H 22 117/78 96 01/22/25 18:40 37.9 C H 125 H 22 117/78 95 01/22/25 18:18 124 H 22 94/66 L 98 01/22/25 18:00 121/66 01/22/25 16:52 125 H 01/22/25 16:45 124 H 18 97 01/22/25 16:45 37.4 C 124 H 20 120/53 L 98 O2 Del Method 01/22/25 19:55 01/22/25 19:25 01/22/25 19:10 01/22/25 18:55 01/22/25 18:40 01/22/25 18:18 Room Air 01/22/25 18:00 01/22/25 16:52 01/22/25 16:45 Room Air 01/22/25 16:45 Room Air Laboratory Results Laboratory Results WBC 7.16 K/ul (4.8-10.8) 01/22/25 17:49 RBC 2.15 M/uL (4.20-5.40) L 01/22/25 17:49 Hgb 6.7 g/dl (12.0-16.0) L* 01/22/25 17:49 Hct 20.9 % (37.0-47.0) L* 01/22/25 17:49 MCV 97.2 fL (80.0-100.0) 01/22/25 17:49 MCH 31.2 pg (25.0-34.0) 01/22/25 17:49 MCHC 32.1 g/dL (32.0-36.0) 01/22/25 17:49 RDW Std Deviation 47.0 fL (36.4-46.3) H 01/22/25 17:49 RDW Coeff of Amanda 13.2 % (11.5-14.5) 01/22/25 17:49 Plt Count 158 K/uL (130-400) 01/22/25 17:49 MPV 9.1 fL (9.4-12.4) L 01/22/25 17:49 Immature Gran % (Auto) 0.4 % 01/22/25 17:49 Neut % (Auto) 88.5 % 01/22/25 17:49 Lymph % (Auto) 1.8 % 01/22/25 17:49 [place] % (Auto) 9.2 % 01/22/25 17:49 Eos % (Auto) 0.0 % 01/22/25 17:49 Baso % (Auto) 0.1 % 01/22/25 17:49 Neut # (Auto) 6.33 K/uL (1.40-6.50) 01/22/25 17:49 Lymph # (Auto) 0.13 K/uL (1.20-3.40) L 01/22/25 17:49 [place] # (Auto) 0.66 K/uL (0.11-0.59) H 01/22/25 17:49 Eos # (Auto) 0.00 K/uL (0.00-0.50) 01/22/25 17:49 Baso # (Auto) 0.01 K/uL (0.00-0.20) 01/22/25 17:49 Immature Gran # (Auto) 0.03 K/uL (0.01-0.20) 01/22/25 17:49 Absolute Nucleated RBC Cancelled 01/22/25 16:43 Nucleated RBC % (auto) Cancelled 01/22/25 16:43 Neutrophils % (Manual) Cancelled 01/22/25 16:43 Band Neutrophils % Cancelled 01/22/25 16:43 Lymphocytes % (Manual) Cancelled 01/22/25 16:43 Prolymphocyte % Cancelled 01/22/25 16:43 Reactive Lymphs % (Man) Cancelled 01/22/25 16:43 Monocytes % (Manual) Cancelled 01/22/25 16:43 Eosinophils % (Manual) Cancelled 01/22/25 16:43 Basophils % (Manual) Cancelled 01/22/25 16:43 Metamyelocytes % (Man) Cancelled 01/22/25 16:43 Myelocytes % (Man) Cancelled 01/22/25 16:43 Promyelocytes % (Man) Cancelled 01/22/25 16:43 Blast Cells % (Manual) Cancelled 01/22/25 16:43 Plasma Cell % (Manual) Cancelled 01/22/25 16:43 Other Cells % Cancelled 01/22/25 16:43 Nucleated RBC % Cancelled 01/22/25 16:43 Neutrophils # (Manual) Cancelled 01/22/25 16:43 Band Neutrophils # Cancelled 01/22/25 16:43 Total Absolute Neuts Cancelled 01/22/25 16:43 Lymphocytes # (Manual) Cancelled 01/22/25 16:43 Prolymphocyte # Cancelled 01/22/25 16:43 Reactive Lymphs # Cancelled 01/22/25 16:43 Total Abs Lymphocytes Cancelled 01/22/25 16:43 Monocytes # (Manual) Cancelled 01/22/25 16:43 Eosinophils # (Manual) Cancelled 01/22/25 16:43 Basophils # (Manual) Cancelled 01/22/25 16:43 Metamyelocytes # (Man) Cancelled 01/22/25 16:43 Myelocytes # (Manual) Cancelled 01/22/25 16:43 Promyelocytes # (Man) Cancelled 01/22/25 16:43 Blast Cells # (Man) Cancelled 01/22/25 16:43 Plasma Cell # (Manual) Cancelled 01/22/25 16:43 Other Cells # Cancelled 01/22/25 16:43 Nucleated RBCs # (Man) Cancelled 01/22/25 16:43 Hypersegmented Neuts Cancelled 01/22/25 16:43 Hyposegmented Neuts Cancelled 01/22/25 16:43 Hypogranular Neuts Cancelled 01/22/25 16:43 Large Granular Lymphs Cancelled 01/22/25 16:43 # Lrg Granular Lymphs Cancelled 01/22/25 16:43 Hairy Cells Cancelled 01/22/25 16:43 Smudge Cells Cancelled 01/22/25 16:43 Toxic Granulation Cancelled 01/22/25 16:43 Toxic Vacuolation Cancelled 01/22/25 16:43 Dohle Bodies Cancelled 01/22/25 16:43 Sarah Rods Cancelled 01/22/25 16:43 Platelet Estimate Cancelled 01/22/25 16:43 Hypogranular Platelets Cancelled 01/22/25 16:43 Giant Platelets Cancelled 01/22/25 16:43 Platelet Satelliting Cancelled 01/22/25 16:43 RBC Morphology Unremarkable 01/22/25 17:49 Polychromasia Cancelled 01/22/25 16:43 Hypochromasia Cancelled 01/22/25 16:43 Poikilocytosis Cancelled 01/22/25 16:43 Basophilic Stippling Cancelled 01/22/25 16:43 Anisocytosis Cancelled 01/22/25 16:43 Microcytosis Cancelled 01/22/25 16:43 Macrocytosis Cancelled 01/22/25 16:43 Spherocytes Cancelled 01/22/25 16:43 Pappenheimer Bodies Cancelled 01/22/25 16:43 Sickle Cells Cancelled 01/22/25 16:43 Target Cells Cancelled 01/22/25 16:43 Tear Drop Cells Cancelled 01/22/25 16:43 Ovalocytes Cancelled 01/22/25 16:43 Stomatocytes Cancelled 01/22/25 16:43 [place] Bodies Cancelled 01/22/25 16:43 Echinocytes Cancelled 01/22/25 16:43 Acanthocytes (Spur) Cancelled 01/22/25 16:43 Rouleaux Cancelled 01/22/25 16:43 RBC Agglutinates Cancelled 01/22/25 16:43 Schistocytes Cancelled 01/22/25 16:43 Sezary Cell Cancelled 01/22/25 16:43 Sodium 135 mmol/L (136-145) L 01/22/25 16:43 Potassium 3.9 mmol/L (3.5-5.1) 01/22/25 17:27 Chloride 103 mmol/L (98-107) 01/22/25 16:43 Carbon Dioxide 24 mmol/L (21-32) 01/22/25 16:43 Anion Gap 8 (3-11) 01/22/25 16:43 BUN 18 mg/dl (6-23) 01/22/25 16:43 Creatinine 0.95 mg/dl (0.6-1.2) 01/22/25 16:43 Est Cr Clr Drug Dosing Not Reportable 01/22/25 16:43 eGFR 59.82 01/22/25 16:43 BUN/Creatinine Ratio 18.9 (10-20) 01/22/25 16:43 Glucose 123 mg/dl (70-99(Fasting)) H 01/22/25 16:43 Calcium 7.8 mg/dl (8.6-10.3) L 01/22/25 16:43 Total Bilirubin 0.8 mg/dl (0.2-1.0) 01/22/25 16:43 AST 36 U/L (13-39) 01/22/25 17:27 ALT 35 U/L (7-52) 01/22/25 16:43 Alkaline Phosphatase 119 U/L (34-104) H 01/22/25 16:43 Total Protein 5.4 gm/dl (6.0-8.3) L 01/22/25 16:43 Albumin 2.7 gm/dl (3.4-5.0) L 01/22/25 16:43 Globulin 2.7 gm/dl (2.5-4.0) 01/22/25 16:43 Albumin/Globulin Ratio 1.0 (0.9-2) 01/22/25 16:43 Lipase 12 U/L (11-82) 01/22/25 16:43 Blood Parasites ID Cancelled 01/22/25 16:43 Blood Type O Positive 01/22/25 16:56 Antibody Screen NEGATIVE 01/22/25 16:56 Crossmatch See Detail 01/22/25 16:56 Impressions Abdomen/Pelvis CT 01/22/25 16:58 EXAMINATION: CT of the abdomen and pelvis performed after the administration of IV contrast. TECHNIQUE: Helical CT images from the lung bases through the symphysis pubis were obtained with contrast. Coronal and sagittal reformatted images were generated at a workstation for further assessment. Dose reduction techniques were achieved by using automatic exposure control and/or adjustment of mA and/or kV according to patient size and/or use of iterative reconstruction technique. HISTORY: Gross hematuria. Recent biopsy. COMPARISON: December 18, 2024 and June 20, 2021. Study reports not available at the time of dictation. FINDINGS: Manager Benefit film demonstrates right hip arthroplasty changes. Right ureteral stent. Lung windows demonstrate at least mild dependent subsegmental atelectasis bilateral pulmonary bases. Soft tissue windows demonstrate small bilateral pleural effusions. Calcified atherosclerotic changes coronary vasculature. Prominent pancreatic duct. Pancreas is otherwise within normal limits. Prominent intrahepatic ducts. No discrete mass. No appreciated radiopaque choledocholithiasis. There is marked right-sided hydronephrosis with small independent gas densities within the renal pelvis. Dependent regions of increased attenuation which may represent elements of sediment and/or hemorrhage noted. Overall hydronephrosis is decreased when compared to prior study. There is a double-J ureteral stent in place. At least mild hydroureter with prominent distended urinary bladder. Independent gas densities within the urinary bladder noted. No discrete stone or mass. There is mass effect and near complete effacement of the inferior vena cava. Streak artifact from right hip arthroplasty hardware limits portions of the right pelvic evaluation. Small amount of free fluid within the dependent pelvis is noted. Focal elements of enhancement at the level of the rectum questionably representing hemorrhoids. Correlate with clinical data. Further characterization limited on this exam. Left lower quadrant colostomy again noted. Small parastomal hernia. Difficulty following small and large bowel throughout their course. Question rectal pouch. Prominent left renal collecting system. Prominent urothelial enhancement. Nonobstructing small left renal calculi. Difficulty following left ureter throughout its course. Appendix is not identified. No secondary findings of appendiceal disease. Remaining solid and hollow organs of the abdomen and pelvis are within normal limits. No free air. Bone windows demonstrate chronic. Lucencies at the level of the right acetabulum. This does not appear to be significantly changed. Right hip arthroplasty hardware appears to be intact. Multilevel superior plate compression fracture deformities T12 and lumbar spine. There is most marked at L3. These findings are not appreciably changed. At least mild spinal canal and foraminal stenoses. Acquired fusion changes left sacroiliac joint. IMPRESSION: 1. Interval right double-J ureteral stent with persistent marked hydronephrosis. Elements of increased attenuation at the level of the right renal pelvis may represent hemorrhagic products. Additional small elements of independent gas within the right renal pelvis and urinary bladder. No discrete mass or stone. Correlate with clinical data. Please see above for details. 2. Near complete effacement of the inferior vena cava. Likely hemorrhoids at the level of the rectum. Suspect rectal pouch with left lower quadrant colostomy. Correlate with clinical data. 3. Mild dependent bibasilar subsegmental atelectasis and small effusions. Please see above for details. Electronically signed by Naresh Yun 01-22-2025 6:58 PM PG Care Time/CCT Total # of Minutes Spent Total Time Spent with Patient: Total time spent is greater than 50% in coordination of care (as documented) at patient's floor/unit and/or counseling patient: Coding Level of Care Code 39138 INT INP/OBS CARE 3/75MIN Diagnoses Hematuria R31.9 Acute blood loss anemia D62 Primary hypertension I10 Hypertension type: primary hypertension (3) Hypertension Hypertension type: primary hypertension Qualified Code(s): I10 - Essential (primary) hypertension
[2025-01-22] MEDS: ONDANSETRON INJ 2 MG/ML 2 ML VIAL IV STA (20:08)
[2025-01-22] MEDS: cefTRIAXone SODIUM 1,000 MG/50 ML BAG IV STA (20:13)
[2025-01-22] MEDS: ACETAMINOPHEN 1,000 MG/100 ML VIAL IV STA (20:14)
--- NOTE | 2025-01-22 20:46 | Urology Consultation ---
Date of Consultation January 22, 2025 Assessment & Plan (1) Hematuria: The patient is being admitted on the hospitalist service. From a urologic perspective we recommend the following: The patient is noted to have almost a 3 g drop of her hemoglobin since her most recent procedure, likely accounting/explaining her presenting symptomatology The patient is currently receiving transfusion of blood products which should continue Serial labs to be followed and additional transfusion should be provided if clinically indicated The patient's records were reviewed and she only takes a baby aspirin, no other anticoagulants or antiplatelets. This should be held if clinically able I did review the patient's CT scan and it does appear she may have some hemorrhagic products in the renal pelvis which may be secondary to her recent procedure The patient does have a three-way Swift catheter in place at the present time which appears to be patent and draining. If this becomes clogged nursing staff can flush and irrigate it as needed. If persistent clogging becomes an issue consideration be given to placing the patient on continuous bladder irrigation but do not feel this is needed at the present time Would recommend utilizing only SCDs for DVT prevention, no chemical means due to her noted hematuria and anemia Would recommend making the patient n.p.o. after midnight in case any cystoscopic intervention is felt to be necessary upon her evaluation on 01/23/2025 Additional recommendations will be forthcoming based on her clinical course as it unfolds Supervising Physician Co-Signing Physician Notes Review progress note from 01/23 for further details of my plan and opinion History of Present Illness Reason for Consultation: Gross hematuria History of Present Illness This is an 80-year-old female who has an ongoing history of gross hematuria for approximately 1 month. The patient notes that she follows locally with Dr. Kang of [facility] physician group urology service. During patient's most recent visit with Dr. Kang in the office on 01/12/2025 she was noted to have some worsening right-sided hydronephrosis secondary to a likely ureteropelvic junction obstructionDr. Kang said he would like to perform a procedure to rule out any other process such as scar tissue or malignancy. On 01/21/2025 which was yesterday the patient underwent a cystoscopy with a right ureteral stent placement. Dr. Kang did send off a urine cytology that was negative for high-grade urothelial carcinoma. The patient notes that since this procedure her gross hematuria has been worse. The patient presented to the emergency department today secondary to increased weakness. Patient notes that she was having a great deal of difficulty walking. She denies any lightheadedness or falls. No head injuries were noted. She denies any chest pain or shortness of breath but again notes marked fatigue. She denies any fevers. She denies any back pain. Since arrival to the hospital this patient has had labs and imaging which I independently reviewed. The patient is noted to have a double J ureteral stent on the right side in place with hydronephrosis noted. There is increased attenuation in the level of the right renal pelvis felt to potentially represent hemorrhage. No discrete masses or stones were noted. Labs including CBC were white blood cell count and platelet count were normal. Chemistry profile showed hemoglobin and hematocrit were 6.7 and 20.9. Chemistry profile showed sodium is 135 with a normal potassium. BUN and creatinine were both normal. Since arrival to the emergency department the patient has had a 20 Swazi three- way Swift catheter in place that is draining appropriately At the time of my interview she was resting comfortably in bed and she was in no distress Allergies Allergy/AdvReac Type Severity Reaction Status Date / Time amoxicillin AdvReac Intermediate Loose Verified 01/22/25 18:50 stools clavulanic acid AdvReac Intermediate Loose Verified 01/22/25 18:50 stools Home Medications Medication Instructions Recorded Confirmed Type calcium carbonate 300 mg PO BID 06/29/19 01/22/25 History zanubrutinib 80 mg capsule 160 mg PO BID 06/24/24 01/22/25 History (Brukinsa) aspirin 81 mg tablet 81 mg PO [id number] 10/18/24 01/22/25 History cholecalciferol (vitamin D3) 25 25 mcg PO DAILY 10/18/24 01/22/25 History mcg (1,000 unit) capsule (Vitamin D3) meclizine 25 mg tablet 12.5 - 25 mg (0.5 - 1 x 25 mg) PO 11/05/24 01/22/25 Rx Q6H PRN dizziness #20 tabs metoprolol succinate 25 mg 12.5 mg PO QAM 01/14/25 01/22/25 History tablet,extended release 24 hr tramadol 50 mg tablet 50 mg PO UD PRN Pain 01/14/25 01/22/25 History cephalexin 500 mg capsule 500 mg PO BID 5 days #10 caps 01/21/25 01/22/25 Rx Patient History Medical History UPJ obstruction, acquired hx Hx of hydronephrosis Cervical stenosis of spinal canal no ROM limitations Stroke-like symptoms 08/2024, numbness side of face, evaluated with 2 f/u MRI's, no evidence of stroke; 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 Atrial premature complex Occasionally symptomatic- "mild" > no cardio Arthritis Vitamin D deficiency Raynaud's disease Premature ventricular contractions hx, no recent issues, no cardiology Neoplasm of uncertain behavior of skin hx Mineral deficiency hx Lumbago hx Hyperplastic colon polyp hx History of actinic keratoses Fissure in skin hx Cole angioma pt unsure about this? Abnormal blood chemistry hx Waldenstrom macroglobulinemia f/u onco 360 History of blood transfusion Post-op bowel surgery History of rectal cancer 1991 > surgery (removed 9" colon/rectum, back wall of vagina and a total hysterectomy at same time, per pt) Colostomy in place No current issues Monoclonal gammopathy Under observation Surgical History History of bone marrow biopsy 03/2024, [facility] Hx of removal of cyst Status post right hip replacement (~07/2022) Status post left knee replacement Left TKA (11/20/21): SAB x1 attempt + PNB at [facility] History of anesthesia complications "Remained numb until the next day after her spinal" Status post right knee replacement Right TKA (07/04/21): SAB at L3/4 + PNB at [facility] Nausea and vomiting after administration of anesthetic agent History of section x3 History of elbow surgery left History of colonoscopy with polypectomy (2023) History of colectomy 9 inches removed [address] [facility] d/t rectal cancer> colostomy History of wisdom tooth extraction Status post laser cataract surgery of both eyes S/P tonsillectomy S/P hysterectomy Family History Mother Alzheimer disease Grandmother (Maternal) Diabetes Father Hypertension Stroke Other No family history of adverse response to anesthesia Denies family history of Ovarian cancer Prostate cancer Myocardial infarction Breast cancer Social History Smoking Status: Never smoker Tobacco Type: Declines Second Hand Exposure: No; Do You Dip or Chew Tobacco: No; Hx Alcohol Use: No Hx Substance Use: No Preferred Language: Divehi Communication Ability: Effective Visual Impairment: No Limitations Hearing Ability: Normal Screener Operator Required: No Beliefs That Will Affect Care: None marital status: Current Living Situation: Spouse Current Living Situation Comment: home with current occupational status: retired How many Children do You have: 3 How many Children do You have Comment: 3 girls Feels Safe at Home: Yes Safety Concerns: Feels Safe At This Time Childhood Exposure to Second-Hand Smoke: No Diet: regular during the past year weight has: remained stable Dental Care, Regularly: Yes Physical Activity Frequency: 5-6 Times per Week Seatbelt Use: always Sunscreen Use: Yes Assistive Devices: Cane Review of Systems Review of Systems: All systems reviewed & are unremarkable except as noted in HPI & below Physical Exam Constitutional: WD/WN, vitals as above Eyes: no conjunctival abnormality ENMT: Ears: no hearing impairment and no external ear abnormality Neck: trachea midline Respiratory: normal respiratory effort; no respiratory distress and no labored breathing Cardiovascular: Rate/Rhythm: regular rate and regular rhythm Gastrointestinal (Abdomen): Soft without distention, rigidity, or signs of peritonitis Musculoskeletal: No calf tenderness Skin: no rashes Neurologic: moves all extremities Psychiatric: A+Ox3, euthymic affect Results & Data Vital Signs (Past 12 Hours) Vital Signs Temp Pulse Pulse Resp BP BP Pulse Ox 01/22/25 19:55 36.4 C L 126 H 20 100/67 97 01/22/25 19:25 36.7 C 126 H 20 105/57 L 94 01/22/25 19:10 36.8 C 125 H 22 98/67 L 98 01/22/25 18:55 37.9 C H 128 H 22 117/78 96 01/22/25 18:40 37.9 C H 125 H 22 117/78 95 01/22/25 18:18 124 H 22 94/66 L 98 01/22/25 18:00 121/66 01/22/25 16:52 125 H 10/17/25 16:45 124 H 18 97 01/22/25 16:45 37.4 C 124 H 20 120/53 L 98 O2 Del Method 01/22/25 19:55 01/22/25 19:25 01/22/25 19:10 01/22/25 18:55 01/22/25 18:40 01/22/25 18:18 Room Air 01/22/25 18:00 01/22/25 16:52 01/22/25 16:45 Room Air 01/22/25 16:45 Room Air PG Care Time/CCT Total # of Minutes Spent Total Time Spent with Patient: Total time spent is greater than 50% in coordination of care (as documented) at patient's floor/unit and/or counseling patient: Coding Level of Care Code 00817 INT INP/OBS CARE 3/75MIN Diagnoses Hematuria R31.9
[2025-01-22 22:28] LABS: Magnesium 1.8 mg/dl (1.7-2.4)
[2025-01-22] MEDS: Patient's HEIGHT &/or WEIGHT Needed STA (22:34)
[2025-01-22 22:42] LABS: Hematocrit (blood only) 26.4 % (37.0-47.0); Hemoglobin 8.5 g/dl (12.0-16.0); Mean Corpuscular Hemoglobin 29.7 pg (25.0-34.0); Mean Corpuscular Volume 92.3 fL (80.0-100.0); Platelet Count 199 K/uL (130-400); RDW Standard Deviation 53.4 fL (36.4-46.3); Red Blood Count 2.86 M/uL (4.20-5.40); White Blood Count 12.00 K/ul (4.8-10.8)
[2025-01-22 22:55] LABS: Appearance Urine Turbid (Clear)
[2025-01-22 23:56] LABS: INR 1.1 (0.9-1.1); Partial Thromboplastin Time 25 Seconds (21-31); Prothrombin Time 11.4 Seconds (9.0-12.0)
[2025-01-23] MEDS: ALBUMIN 25% 12.5 GM/50 ML VIAL IV ONE (00:57)
[2025-01-23] MEDS: LACTATED RINGER'S 500 ML IV ONE (00:57)
[2025-01-23] MEDS ORDERED: SODIUM CHLORIDE 0.9% 100 ML IV PRN ×2 (02:09→08:01)
[2025-01-23] MEDS: ACETAMINOPHEN 325 MG TAB PO PRN (02:55)
[2025-01-23 06:55] LABS: Hematocrit (blood only) 23.1 % (37.0-47.0); Hemoglobin 7.8 g/dl (12.0-16.0); Mean Corpuscular Hemoglobin 30.5 pg (25.0-34.0); Mean Corpuscular Volume 90.2 fL (80.0-100.0); Platelet Count 149 K/uL (130-400); RDW Standard Deviation 51.3 fL (36.4-46.3); Red Blood Count 2.56 M/uL (4.20-5.40); White Blood Count 10.51 K/ul (4.8-10.8)
[2025-01-23 07:18] LABS: INR 1.2 (0.9-1.1); Prothrombin Time 12.3 Seconds (9.0-12.0)
[2025-01-23 07:24] LABS: Anion Gap 9.0 (3-11); Blood Urea Nitrogen 25.0 mg/dl (6-23); Calcium 7.6 mg/dl (8.6-10.3); Carbon Dioxide 23.0 mmol/L (21-32); Chloride 103.0 mmol/L (98-107); Creatinine Clr Calc Pharmacy 23.4 ml/min; Glucose 114.0 mg/dl (70-99(Fasting)); Potassium 3.9 mmol/L (3.5-5.1); Sodium 135.0 mmol/L (136-145)
--- NOTE | 2025-01-23 08:37 | Urology Progress Note ---
Date of Service January 23, 2025 Assessment & Plan (1) Hematuria: (2) Hydronephrosis: Plan Gross hematurialikely upper tract source on the right side with a massively dilated kidney secondary to a chronic UPJ obstruction Recent intervention with Dr. Kang failed to reveal any malignancy or other definitive cause of the bleeding in the upper tract although massive distention of the system alone may be a sufficient to cause the bleeding She is due to receive another transfusion this morning She is hemodynamically stable and mentating well, however she has had a significant transfusion requirement Over the course of this weekend if she has a substantial decline in status, would have a low threshold to transfer to an academic center for the possibility of embolization although embolization right now may be quite challenging as her bleeding is significant but perhaps not significant enough to be identifiable on angiogram If her bleeding is stable enough to get her through the weekend, 1 potential option would be to consider nephrectomy next week. Although pyeloplasty could perhaps preserve renal function, I think in her current status she is not suited to consider surgery of this type and would in turn benefit more from a more definitive option/extirpative surgery. She does not need to remain n.p.o. at the moment as there is no plan for surgical intervention right now. We will continue to follow as her situation remains quite uncertain and her options are suboptimal in all aspects. Admission and Anticipated Discharge Date Admission Date: January 22, 2025 Subjective Subjectively feeling ok, but preparing to receive another transfusion this AM has been on CBI, but urine continues to remain bloody accompanied by her today and we have had a lengthy discussion about options Physical Exam Physical Exam: Bloody urine on moderate CBI Results & Data Vital Signs (Past 12 Hours) Vital Signs Temp Pulse Pulse Resp BP BP Pulse Ox 01/23/25 08:21 36.5 C 118 H 18 84/53 L 95 01/23/25 07:40 36.5 C 116 H 22 96/57 L 97 01/23/25 06:45 114 H 97/42 L 01/23/25 06:00 36.6 C 110 H 22 85/52 L 98 01/23/25 05:30 90/48 L 01/23/25 05:30 118 H 24 98 01/23/25 05:00 116 H 21 91/55 L 96 01/23/25 04:40 36.7 C 146 H 22 97/63 L 97 01/23/25 03:45 37 C 145 H 17 88/57 L 98 01/23/25 03:15 37 C 154 H 23 84/51 L 98 01/23/25 03:00 37.8 C H 154 H 25 H 105/67 98 01/23/25 02:41 37.9 C H 155 H 24 101/46 L 97 01/23/25 01:00 126 H 26 H 95/54 L 97 01/23/25 00:00 128 H 21 88/55 L 98 01/22/25 23:02 37 C 134 H 23 86/52 L 97 01/22/25 23:00 37 C 128 H 91/49 L 97 01/22/25 22:04 128 H 01/22/25 21:57 129 H 20 120/69 96 01/22/25 20:55 37.0 C 121 H 20 108/55 L 98 01/22/25 20:51 123 H O2 Del Method 01/23/25 08:21 01/23/25 07:40 Room Air 01/23/25 06:45 01/23/25 06:00 Room Air 01/23/25 05:30 01/23/25 05:30 Room Air 01/23/25 05:00 Room Air 01/23/25 04:40 01/23/25 03:45 01/23/25 03:15 01/23/25 03:00 01/23/25 02:41 01/23/25 01:00 Room Air 01/23/25 00:00 Room Air 01/22/25 23:02 Room Air 01/22/25 23:00 Room Air 01/22/25 22:04 01/22/25 21:57 Room Air 01/22/25 20:55 01/22/25 20:51 PG Care Time/CCT Total # of Minutes Spent Total Time Spent with Patient: Total time spent is greater than 50% in coordination of care (as documented) at patient's floor/unit and/or counseling patient: Coding Level of Care Code 88989 SUB INP/OBS CARE 3/50MIN Diagnoses Hematuria R31.9 Hydronephrosis N13.30
[2025-01-23] MEDS: METOPROLOL SUCC 25MG EXT REL TAB PO SCH (10:15)
[2025-01-23 12:19] LABS: Hematocrit (blood only) 26.9 % (37.0-47.0); Hemoglobin 9.1 g/dl (12.0-16.0); Mean Corpuscular Hemoglobin 30.3 pg (25.0-34.0); Mean Corpuscular Volume 89.7 fL (80.0-100.0); Platelet Count 149 K/uL (130-400); RDW Standard Deviation 52.3 fL (36.4-46.3); Red Blood Count 3.00 M/uL (4.20-5.40); White Blood Count 13.10 K/ul (4.8-10.8)
[2025-01-23 15:59] LABS: Hematocrit (blood only) 25.4 % (37.0-47.0); Hemoglobin 8.5 g/dl (12.0-16.0); Mean Corpuscular Hemoglobin 29.7 pg (25.0-34.0); Mean Corpuscular Volume 88.8 fL (80.0-100.0); Platelet Count 157 K/uL (130-400); RDW Standard Deviation 51.1 fL (36.4-46.3); Red Blood Count 2.86 M/uL (4.20-5.40); White Blood Count 13.15 K/ul (4.8-10.8)
--- NOTE | 2025-01-23 16:54 | Hospitalist Progress Note ---
Date of Service January 23, 2025 Assessment & Plan (1) Hematuria: (2) Acute blood loss anemia: (3) Hypertension: Plan 80yo female with history of HTN, Waldenstrom macroglobulinemia and right hydronephrosis s/p cystoscopy with stent placement performed 01/21/2025. Patient with ongoing hematuria, acute blood loss anemia with symptoms of dizziness and lightheadedness, hypotensive and tachycardic. # Postprocedural gross hematuria causing acute blood loss anemia Gross hematuria causing acute blood loss anemia related to right ureteral stent placement, associated with being on Brukinsa and aspirin. Diagnostic plan: Urology consulted. Discussed with Dr. Benito Treatment plan: Aspirin and Brukinsa temporarily discontinued. Discussed with oncologist. Monitor hemoglobin every 6 hours, transfuse 3rd unit this AM since not hemodynamically stable. Transfuse for Hg <8 especially if tachycardic/hypotensive. Three-way Swift catheter in place, continue CBI. Clinical decision making: Brukinsa affects platelet function with 4% risk of hemorrhage, used for Waldenstrom macroglobulinemia. Low threshold for ICU transfer though BP/HR improved today. Considered transfer to tertiary care - would have IR embolization, however, discussed with Charmaine and she prefers staying here and proceeding with nephrectomy. Could resolve with stopping Brukinsa, last dose yesterday AM. # Acute kidney injury Acute kidney injury related to severe anemia and hemorrhage. Diagnostic plan: Check BMP in the morning. Monitor UOP Treatment plan: Transfusions as needed to maintain adequate MAP. Avoid nephrotoxins. Clinical decision making: Creatinine 1.5, elevated from baseline 0.9-1. # Severe right hydronephrosis due to benign UPJ obstruction Severe right hydronephrosis status post right ureteral stent. Diagnostic plan: CT shows slight improvement. Clinical decision making: Mass effect with IVC effacement, probably contributing to tachycardia and hypotension. Hemodynamics seemed to improve when positioned on her left side # Possible UTI, possible sepsis. Urinalysis does not strongly indicate infection, but patient was on Keflex prior to admission. 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 Treatment plan: DVT prophylaxis with SCDs. Avoid anticoagulants due to hemorrhage. # Hypertension Hypertension. Treatment plan: Hold metoprolol due to hypotension. # Hematuria Hematuria. Treatment plan: Continue ceftriaxone 1 g daily. # DVT Prophylaxis: SCDs Medical Complexity: Medical decision making was complex, high risk for clinical deterioration morbidity, or mortality for this encounter. Unstable conditions include gross hematuria causing acute blood loss anemia, acute kidney injury, severe right hydronephrosis, hypertension, hematuria. New problems or diagnoses today include gross hematuria causing acute blood loss anemia, acute kidney injury, severe right hydronephrosis, hypertension, hematuria. High risk medications and treatments include Brukinsa, transfusions, metoprolol, ceftriaxone. Admission and Anticipated Discharge Date Admission Date: January 22, 2025 Subjective mildly hypotensive (MAP 60-65) and tachycardic (HR 115, previously 155) this AM. Afebrile, O2 sat 97% on room air. Ongoing hematuria post right ureteral stent for right UPJ obstruction causing severe right hydronephrosis. Significant gross hematuria with CBI running; dark blood noted when CBI paused, restarted. Urine in tubing light pink. Reports abdominal fullness. Enlarged kidney exacerbating peristomal hernia at colostomy site, worsening. No lightheadedness or dizziness when lying down, unable to stand due to weakness, even before stent placement. No SOB or chest pain. Transfused 2 units RBCs, hemoglobin improved from 6.7 to 8.8, recheck 7.8. Third unit transfusion running. She strongly prefers nephrectomy at this point because of all the problems the mass is causing. History of hypertension, metoprolol held. Physical Exam Physical Exam: General Appearance: Awake, alert, and oriented x4. Vital signs: Reviewed past 24h vital signs in EMR, unremarkable. HEENT: Within normal limits. Respiratory: Clear to auscultation bilaterally. Cardiovascular: Tachycardic, regular, no murmur. Gastrointestinal: Distended, especially right side, mildly firm, nontender. Colostomy in LLQ with parastomal hernia. Good stool and gas output. Extremities: Warm, well perfused, no edema. Good cap refill. DP pulses 2+. Skin: Warm, dry, no rashes. Neurological: Normal. Psychiatric: Normal. Results & Data Results & Data Vital Signs (Past 12 Hours) Vital Signs Temp Pulse Pulse Resp BP BP Pulse Ox 01/23/25 13:56 109 H 01/23/25 11:32 36.8 C 125 H 18 125/76 96 01/23/25 11:19 36.8 C 116 H 18 98/50 L 98 01/23/25 11:01 36.8 C 144 H 18 92/51 L 96 01/23/25 10:26 36.8 C 118 H 18 96/50 L 99 01/23/25 10:11 114 H 01/23/25 09:28 36.8 C 115 H 18 94/58 L 95 01/23/25 08:58 36.8 C 113 H 18 92/67 L 98 01/23/25 08:43 36.9 C 107 H 22 97/53 L 97 01/23/25 08:41 36.8 C 119 H 18 87/51 L 97 01/23/25 08:21 36.5 C 118 H 18 84/53 L 95 01/23/25 07:40 36.5 C 116 H 22 96/57 L 97 01/23/25 06:45 114 H 97/42 L 01/23/25 06:00 36.6 C 110 H 22 85/52 L 98 01/23/25 05:30 90/48 L 01/23/25 05:30 118 H 24 98 01/23/25 05:00 116 H 21 91/55 L 96 O2 Del Method 01/23/25 13:56 01/23/25 11:32 Room Air 01/23/25 11:19 01/23/25 11:01 01/23/25 10:26 01/23/25 10:11 01/23/25 09:28 01/23/25 08:58 01/23/25 08:43 01/23/25 08:41 01/23/25 08:21 01/23/25 07:40 Room Air 01/23/25 06:45 01/23/25 06:00 Room Air 01/23/25 05:30 01/23/25 05:30 Room Air 01/23/25 05:00 Room Air Laboratory Results - Laboratory Studies: - Hemoglobin: Improved from 6.7 to 8.8, recheck 7.8.8 - INR: 1.2 - Platelets: Normal - Sodium: 135 - Creatinine: 1.5 (increased from baseline of 1) - Imaging: - CT: Right hydronephrosis slightly improved PG Care Time/CCT Total # of Minutes Spent Total Time Spent with Patient: Total time spent is greater than 50% in coordination of care (as documented) at patient's floor/unit and/or counseling patient: Coding Level of Care Code 42781 SUB INP/OBS CARE 3/50MIN Diagnoses Hematuria R31.9 Acute blood loss anemia D62 Primary hypertension I10 Hypertension type: primary hypertension (3) Hypertension Hypertension type: primary hypertension Qualified Code(s): I10 - Essential (primary) hypertension
[2025-01-23] MEDS: CEFEPIME 2000MG 2,000 MG/20 ML SYR IV SCH (17:24)
[2025-01-23] MEDS ORDERED: cefTRIAXone SODIUM 1,000 MG/50 ML BAG IV SCH (21:00)
[2025-01-23 22:12] LABS: Hematocrit (blood only) 21.6 % (37.0-47.0); Hemoglobin 7.4 g/dl (12.0-16.0); Mean Corpuscular Hemoglobin 30.2 pg (25.0-34.0); Mean Corpuscular Volume 88.2 fL (80.0-100.0); Platelet Count 152 K/uL (130-400); RDW Standard Deviation 49.8 fL (36.4-46.3); Red Blood Count 2.45 M/uL (4.20-5.40); White Blood Count 11.72 K/ul (4.8-10.8)
[2025-01-24] MEDS: CEFEPIME 1000MG 1,000 MG/10 ML SYR IV SCH (04:09)
[2025-01-24 06:51] LABS: Anion Gap 7.0 (3-11); Blood Urea Nitrogen 41.0 mg/dl (6-23); Calcium 7.8 mg/dl (8.6-10.3); Carbon Dioxide 23.0 mmol/L (21-32); Chloride 99.0 mmol/L (98-107); Creatinine Clr Calc Pharmacy 16.5 ml/min; Glucose 110.0 mg/dl (70-99(Fasting)); Potassium 4.6 mmol/L (3.5-5.1); Sodium 129.0 mmol/L (136-145)
[2025-01-24 06:57] LABS: Hematocrit (blood only) 19.0 % (37.0-47.0); Hemoglobin 6.8 g/dl (12.0-16.0); Mean Corpuscular Hemoglobin 31.6 pg (25.0-34.0); Mean Corpuscular Volume 88.4 fL (80.0-100.0); Platelet Count 148 K/uL (130-400); RDW Standard Deviation 48.5 fL (36.4-46.3); Red Blood Count 2.15 M/uL (4.20-5.40); White Blood Count 9.70 K/ul (4.8-10.8)
[2025-01-24] MEDS ORDERED: SODIUM CHLORIDE 0.9% 100 ML IV PRN (07:30)
--- NOTE | 2025-01-24 10:03 | Urology Progress Note ---
Date of Service January 24, 2025 Assessment & Plan (1) Acute blood loss anemia: (2) UPJ obstruction, acquired: Plan Massive right hydronephrosis secondary to presumed UPJ obstruction With a stent in place currently but this has not decompress the system at all She continues to have active bleeding and is having ongoing transfusion requirement Her hemoglobin this morning was 6.8 Her kidney also appears to potentially be causing some mass effect on the IVC which may be contributing to her tachycardia Her kidney function is worsening implying that there could be some compression of the left side as her kidney on the left does appear to be quite healthy and previously without hydronephrosis or obstruction She has not had a repeat CT today nor do I think it is appropriate given her current creatinine, however, we did have a conversation today between myself, Dr. Sanon, and her family about transfer She had previously discussed radical nephrectomy, however radical nephrectomy in the acute setting of severe anemia and active bleeding can be quite challenging and potentially too high risk I think she first would require transfer possible embolization. If embolization is successful and her hemoglobin stabilizes, she could be decompressed percutaneously which may improve the IVC compression Long-term, nephrectomy can be revisited but we need to resolve the acute issues first Process of transfer to begin now Admission and Anticipated Discharge Date Admission Date: January 22, 2025 Subjective Subjectively relatively unchanged She has had a further drop in her hemoglobin and is requiring additional transfusion today She was seen in conjunction with Dr. Sanon She remains tachycardic and mildly hypotensive She has had worsening of her kidney function and no signs of bleeding resolving Physical Exam Physical Exam: Uncomfortable appearing despite her hemoglobin and tachycardia Constitutional: well developed and well nourished Respiratory: no respiratory distress Cardiovascular: Extremities: no pedal edema (Significant tachycardia) Gastrointestinal (Abdomen): Right kidney is easily palpable and visible through the abdominal wall, occupying the right hemiabdomen Results & Data Vital Signs (Past 12 Hours) Vital Signs Temp Pulse Pulse Resp BP BP Pulse Ox 01/24/25 09:54 36.6 C 145 H 21 118/64 99 01/24/25 09:42 36.8 C 145 H 21 118/64 01/24/25 09:36 36.8 C 144 H 18 112/69 96 01/24/25 09:21 36.8 C 141 H 18 107/64 95 01/24/25 09:19 36.8 C 139 H 18 107/64 97 10/19/25 08:52 36.8 C 141 H 18 107/64 98 01/24/25 08:52 36.8 C 116 H 18 126/39 L 97 01/24/25 08:36 36.9 C 115 H 18 106/61 97 01/24/25 08:16 36.8 C 117 H 18 119/64 94 01/24/25 07:43 36.7 C 115 H 22 115/64 98 01/24/25 07:35 106 H 01/24/25 03:50 36.9 C 112 H 16 106/63 96 01/24/25 00:26 37.0 C 110 H 17 107/61 95 O2 Del Method 01/24/25 09:54 01/24/25 09:42 01/24/25 09:36 01/24/25 09:21 01/24/25 09:19 01/24/25 08:52 01/24/25 08:52 01/24/25 08:36 01/24/25 08:16 01/24/25 07:43 Room Air 01/24/25 07:35 01/24/25 03:50 Room Air 01/24/25 00:26 Room Air PG Care Time/CCT Total # of Minutes Spent Total Time Spent with Patient: Total time spent is greater than 50% in coordination of care (as documented) at patient's floor/unit and/or counseling patient: Coding Level of Care Code 16259 SUB INP/OBS CARE 3/50MIN Diagnoses Acute blood loss anemia D62 UPJ obstruction, acquired N13.5
[2025-01-24 11:45] VITALS: RESP 18
[2025-01-24 12:11] LABS: Hematocrit (blood only) 25.7 % (37.0-47.0); Hemoglobin 8.9 g/dl (12.0-16.0)
[2025-01-24 12:49] LABS: Fibrinogen 756 mg/dl (184-400); INR 1.0 (0.9-1.1); Partial Thromboplastin Time 29 Seconds (21-31); Prothrombin Time 10.7 Seconds (9.0-12.0)
--- NOTE | 2025-01-24 12:55 | Discharge Summary ---
Discharge Summary Date of Service January 24, 2025 Principal Dx & Hospital Course #1 = Principal Diagnosis (1) Hematuria: (2) Acute blood loss anemia: (3) Hypertension: Plan 80yo female with history of HTN, Waldenstrom macroglobulinemia and right hydronephrosis s/p cystoscopy with stent placement performed 01/21/2025. Patient admitted with ongoing gross hematuria, acute blood loss anemia with symptoms of dizziness and lightheadedness, hypotensive and tachycardic. CT on 01/22 showed massive right hydronephrosis, blood products in renal collecting system, R ureteral stent in place. # Postprocedural gross hematuria causing acute blood loss anemia Gross hematuria causing acute blood loss anemia related to right ureteral stent placement, associated with being on Brukinsa and aspirin. Urology consulted. Discussed with oncologist. Brukinsa affects platelet function with 4% risk of hemorrhage, used for Waldenstrom macroglobulinemia. Platelet transfusion not recommended unless thrombocytopenic. Has short half life. Brukinsa and aspirin have been held since admission. 01/23 Discussed treatment options and potential transfer - Charmaine preferred to stay here hoping that bleeding would stop and she could proceed to R nephrectomy later this week. Continues to have ongoing hematuria 36h after admission, continuing CBI, Hg continuously falling and transfusing 4th unit RBCs this am, also ordered 3 units FFP - in progress. Discussed at bedside with Dr. Benito (urologist), Charmaine, her and grandson at bedside today. Bleeding has continued and she remains borderline hemodynamically. Agreed to transfer to tertiary care because of need for IR services for potential embolization, may need nephrostomy once bleeding stopped. Anticipate eventual R nephrectomy but not stable enough for surgery while bleed ing like this. Discussed with Urology, IR, Flyer Repairer at [facility] and accepted for transfer to [facility]. Planned for CTA abdomen on arrival and IR consultation. 01/23 had tachycardia and borderline MAPs of 60-70, did not require pressors. Frequent transfusions but able to keep Hg >7. 01/24 has had MAPs in 70s and persistent sinus tachycardia from 105-140. Progressive ANAM. Hg 6.8 --> 7.9 after transfusion this AM. FFP in progress, empiric for ongoing bleeding after 4 units RBCs. 2 units FFP were given, third unit was not ready prior to transfer. PT/PTT and fibrinogen drawn at noon: INR 1.0, PTT 29, fibrinogen 756. Hg at noon 8.9 CT shows mass effect of giant kidney causing IVC effacement, impaired venous return probably contributing to tachycardia and hypotension. Hemodynamics seem to improve when positioned on her side rather than flat. # Acute kidney injury Acute kidney injury related to severe anemia and hemorrhage, hypoperfusion. Treatment plan: Transfusions and IV fluids as needed to maintain adequate MAP. Avoid nephrotoxins. Baseline Cr is 1, increased to 2.15 today. Continues to make urine, more difficult to assess with CBI. Had UOP of at least 500 mL since yesterday. 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 CT shows slight improvement in massive R hydro See above # Hyponatremia - sodium decreased from low normal to 129 today. Related to decreased perfusion and CBI. # Possible UTI, possible sepsis though issues above are more likely the cause of impaired hemodynamics. Urinalysis does not strongly indicate infection, but patient was on Keflex prior to admission. Urine culture growing Morganella morganii which can have inducible Amp C resistance - changed from ceftriaxone to cefepime 01/23 pending sensis # Remote history of rectal cancer Remote history of rectal cancer in 1991 status post colostomy. Has longstanding peristomal hernia that has worsened because of mass effect of hydronephrosis. Treatment plan: DVT prophylaxis with SCDs. Avoid anticoagulants due to hemorrhage. # Hypertension History of hypertension. Treatment plan: Hold metoprolol due to hypotension. # DVT Prophylaxis: SCDs Medical Complexity: Medical decision making was complex, high risk for clinical deterioration morbidity, or mortality for this encounter. Unstable conditions include gross hematuria causing acute blood loss anemia, acute kidney injury, severe right hydronephrosis, hypotension/tachycardia. Remains critically ill. High risk medications and treatments include Brukinsa, blood and FFP transfusions, IV antibiotics Admission HPI Per Admitting Provider Charmaine Person is an 80yo female with history of hypertension, Waldenstrom's macroglobulinemia, history of nephrolithiasis, UTIs, hydronephrosis if the right kidney possibly related to UPJ obstruction. Patient has been having hematuria and had a cystoscopy with right retrograde pyelogram and ureteral stent placement performed on 01/21/[address] Kang. She reports having a little bit of hematuria last evening after the procedure. However, since waking up this morning she has been having large volume hematuria with leakage of bloody urine. She denies passage of clots or difficulty passing the urine. She has been having nausea as well as some dizziness with standing but otherwise denies chest pain, palpitations, SOB, abdominal pain, vomiting or diarrhea. In the ER patient had a Flores placed with passage of bright red blood filling the bag, no clots Sinus tachycardia with HR ranging 121-128bpm. Occasional low blood pressure at 94/66 Patient complaining of nausea and ongoing hematuria, otherwise no complaints. ER Course: Zofran 4mg IV Ceftriaxone 1gm Receiving 1u PRBCs currently Discharge Exam General Appearance: Awake, alert, and oriented x4. Vital signs: Reviewed past 24h vital signs in EMR, MAPs improved, remains tachycardic, sinus tachy on monitor, afebrile and not hypoxic Exam unchanged today excepting urine appears somewhat bloodier than yesterday, has flores, ongoing CBI HEENT: Within normal limits. Respiratory: Clear to auscultation bilaterally. Cardiovascular: Tachycardic, regular, no murmur. Gastrointestinal: Distended, especially right side, mildly firm, nontender. Colostomy in LLQ with parastomal hernia. Good stool and gas output. Extremities: Warm, well perfused, no edema. Good cap refill. DP pulses 2+. Skin: Warm, dry, no rashes. Neurological: Normal. Psychiatric: Normal. Discharge Plan Discharge Items Patient Disposition: Transfer Acute Care Hospital Reason For Visit: HEMATURIA Discharge Diagnosis: Right renal hemorrhage Condition on Discharge: Critical Activity: Per Instructions section Non-emergency contact: Primary Care Provider Call non-emergency contact if: you have any medication questions and your symptoms worsen Follow-up/Referrals: Sharan Pittman MD [Primary Care Provider] - Jarocho Kang MD [Physician] - Diet: Nothing by Mouth Addtl Attending Provider Instructions: . Pending Studies at Discharge: Yes (PT/PTT/fibrinogen. Urine culture sensitivities) Stand-Alone Forms: My [facility] Skilled Items Patient informed of condition?: Yes DNR: No Discharge Level of Care: Other Communicable Disease: No Discharge Prognosis: Other Lines: Peripheral IV Urinary Catheter: Yes Medications and DC Order Prescriptions: Continued meclizine 25 mg tablet 12.5 - 25 mg PO Q6H PRN (Reason: dizziness) Qty: 20 0RF calcium carbonate 600 mg calcium (1,500 mg) tablet 300 mg PO BID tramadol 50 mg tablet 50 mg PO UD PRN (Reason: Pain) metoprolol succinate 25 mg tablet extended release 24 hr 12.5 mg PO QAM cholecalciferol (vitamin D3) [Vitamin D3] 25 mcg (1,000 unit) Capsule 25 mcg PO DAILY Held Brukinsa 80 mg capsule 160 mg PO BID Hold Instructions: . aspirin 81 mg tablet 81 mg PO 4XWK Hold Instructions: . Rx Instructions: MON, WED, FRI, & SAT. Discontinued cephalexin 500 mg capsule 500 mg PO BID 5 Days Qty: 10 0RF Rx Instructions: STARTED 01/21/25 FOR 5 DAYS Discharge Orders: Discharge Order (Routine); Ordered 01/24/25 Ordered By: Sisi Sanon Admission Data Admit Date/Time: 01/22/25 20:13 Attending Provider: Sisi Sanon Admit Provider: Michelle Kent Primary Care Provider: Sharan Pittman Other Providers: Gordon Benito; Michelle Kent Hospital Stay Data Consultations 01/22/25 18:36 Consult Urology Routine 01/22/25 19:00 ED Decision to Admit Stat 01/22/25 20:13 Consult Urology Routine Diagnostic Imagining Performed 01/22/25 16:58 CT Abd and Pelvis [CT abd pelvis IV con only] Stat Pending Results Patient Have Any Pending Studies at Discharge: Yes (PT/PTT/fibrinogen. Urine culture sensitivities) Discharge Instructions Given to Patient (Per Discharging Provider) . Total Time Total Time Spent Total Time Spent (In Minutes): I personally spent: 120 minutes today on clinical care activities including: reviewing chart notes and vital signs reviewing labs discussion with retail sales consultant(s) examining and counseling the patient counseling the patient's family discussion with accepting physicians, arranging transfer writing orders documentation Coding Level of Care Code 11572 INP/OBS DISCH >30 MIN Diagnoses Hematuria R31.9 Acute blood loss anemia D62 Primary hypertension I10 Hypertension type: primary hypertension
[2025-01-24 13:38] VITALS: BP 131/76; PULSE 144; TEMP 98.2; O2SAT 98
[2025-01-24] MEDS: ONDANSETRON INJ 2 MG/ML 2 ML VIAL IV PRN (13:43)
--- NOTE | 2025-01-27 11:30 | Coding Query ---
CODING QUERY To promote full compliance with coding requirements relating to patient care, provider participation is requested in all cases of furniture duster uncertainty. Please assist us with the question(s) below: In the record, it states that the patient has an UTI. Please clarify below the cause of the UTI if applicable. Thank you. ( ) The chronic flores was the cause of the UTI. ( ) Other urinary cath/device was the cause of the UTI. ( x ) UTI, unspecified cause. ( ) Self-catheterization was the cause of the UTI. ( ) Other (Specify): Principal Diagnosis: "that condition established after study, to be chiefly responsible for occasioning the admission of the patient to the hospital for care." Co-Existing Principal Diagnosis: "when two or more diagnoses equally meet the criteria for principal diagnosis as determined by the circumstances of admission, diagnostic work up, and/or therapy provided, and the Alphabetic Index, Tabular List, or another coding guideline does not provide sequencing direction, any one of the diagnoses may be sequenced first." "When the physician has documented what appears to be a current diagnosis in the body of the record, but has not included the diagnosis in the final diagnostic statement, the physician should be asked whether the diagnosis should be added." ([facility] 2 QTR90. p3-4) BENNETT
--- NOTE | 2025-01-27 11:31 | Coding Query ---
SEPSIS To promote full compliance with coding requirements relating to patient care, physician participation is requested in all cases of funeral car driver uncertainty. Please assist us with the question(s) below: In responding to this query, please exercise your independent professional judgement. The fact that a question is asked does not imply that any particular answer is desired or expected. We appreciate your clarification on this issue. Throughout the medical record, you have clearly documented a localized infection and your patient has clinical evidence of a generalized sepsis or severe sepsis. The term urosepsis is a nonspecific entity and is coded as an UTI. If the patient has sepsis, severe sepsis, from an urinary source or some other source, please clarify in your response below. The medical record reflects the following clinical findings: (With dates as appropriate) (Body temperature of >38.3 C(101 F) or <36 C(96.8F), pulse >90/minute, respirations >20/minute, WBC count >12,000 or <4,000, altered mental status, significant edema or positive fluid balance, hyperglycemia without diabetes, hypotension, metabolic acidosis (elev. lactate level, anion gap or reduced blood pH), shock, positive blood culture (enter organism) ____ ()Bacteremia (Nonspecific laboratory finding of bacteria in the blood) Specify Organism () Present on Admission () Not present on admission () Unable to clinically determine () Septicemia (Systemic disease associated with the presence of pathogenic microorganisms in the blood): Specify Organism () Present on Admission () Not present on admission () Unable to clinically determine () Sepsis Specify Organism Specify Associated Condition/Diagnosis () Present on Admission () Not present on admission () Unable to clinically determine () Severe Sepsis (Sepsis associated with acute organ dysfunction) Specify Organism Specify Associated Condition/Diagnosis () Present on Admission () Not present on admission () Unable to clinically determine () Septic Shock (Severe sepsis with acute circulatory failure, unexplained by other causes) () Present on Admission () Not present on admission () Unable to clinically determine (x) Other, patient has: Morganella urinary tract infection. Hypotension and tachycardia were probably not caused by sepsis and were caused by severe acute blood loss anemia and compression of the inferior venal cava. () Ruled Out: MTDD
--- NOTE | 2025-01-27 11:37 | Coding Query ---
CODING QUERY To promote full compliance with coding requirements relating to patient care, provider participation is requested in all cases of civil drafter uncertainty. Please assist us with the question(s) below: Coding Question(s): Pt came in with gross hematuria following stent procedure. DS states only Right Renal Hemorrhage. Please clarify below reason for hematuria. Physician's Response(s): ( x ) Postprocedural hemorrhage of a genitourinary system organ following a genitourinary system procedure\\ Exacerbating factors of massive hydronephrosis, medication side effects - Brukinsa related hemorrhage, some contribution of aspirin. ( ) Right Renal Hemorrhage due to ( ) Other Thank you Becky August Principal Diagnosis: "that condition established after study, to be chiefly responsible for occasioning the admission of the patient to the hospital for care." Co-Existing Principal Diagnosis: "when two or more diagnoses equally meet the criteria for principal diagnosis as determined by the circumstances of admission, diagnostic work up, and/or therapy provided, and the Alphabetic Index, Tabular List, or another coding guideline does not provide sequencing direction, any one of the diagnoses may be sequenced first." "When the physician has documented what appears to be a current diagnosis in the body of the record, but has not included the diagnosis in the final diagnostic statement, the physician should be asked whether the diagnosis should be added." (Source [facility]oding [facility] 2 QTR90. p3-4) BENNETT
== END 2025-01-24 13:50 | disposition short-term general hospital (02) | DRG 920 ==
LOC: ED 16:24 → 2E 20:13 → SUATTDRO 20:13 → 2E 21:20